=== PATIENT | female | born 1960 | race Caucasian/White ===

== ENCOUNTER → 2016-09-08 | Outpatient (CLI) | payer BC ==
--- NOTE | 2016-09-08 20:27 | MR ---
MRI of the brain with and without contrast HISTORY: Dizziness TECHNIQUE:.T1-weighted sagittal, T2, FLAIR, and diffusion axial, postcontrast T1 axial and coronal vi ews of the brain are submitted. CONTRAST: 15 mL of MultiHance FINDINGS: There is no evidence of acute ischemia. The ventricles, basal cisterns, and sulci overlying the co nvexities are consistent with the patient's age. There is extensive vasogenic edema within the left frontal parietal junction with a ring-enhancing le hunter measuring 2 cm. No midline shift. There is a 5 mm ring-enhancing lesion within the left occipita l lobe and within the anterior right temporal lobe. There are 3 enhancing lesions within the cerebellum the largest is seen involving the right cerebella r hemisphere demonstrating vasogenic edema with ring enhancement and measuring 2.4 cm. Craniocervical junction maintained. Sella turcica has a normal appearance. Changes of mild chronic si nusitis. Changes of mild chronic mastoiditis on the right. IMPRESSION: 1. Multiple ring-enhancing lesions compatible with metastasis. The largest supratentorial lesion with in the left frontal parietal conjunction with significant vasogenic edema measuring 2 cm but no midli ne shift. Within the cerebellum the largest lesion measures 2.4 cm on the right.
== END | disposition home or self-care (01) ==
LOC: RADMRIMAIN 18:57
PROVIDERS: ATTEND Internal Medicine Hematology & Oncology
DX: C34.90 Malignant neoplasm of unspecified part of unspecified bronchus or lung (principal); G93.9 Disorder of brain, unspecified; R60.9 Edema, unspecified
CPT/HCPCS: 70553; A9577

== ENCOUNTER → 2016-10-11 | Outpatient (CLI) | payer BC ==
--- NOTE | 2016-10-11 14:46 | US ---
EXAMINATION TYPE: US venous doppler duplex LE RT DATE OF EXAM: 10/11/2016 1:58 PM COMPARISON: NONE CLINICAL HISTORY: R22.41 SWELLING. Patient has had prior DVT in arm, was on Xeralto, but was recently taken off. SIDE PERFORMED: Right VESSELS IMAGED: External Iliac Vein (EIV) Common Femoral Vein Deep Femoral Vein Greater Saphenous Vein * Femoral Vein (* superficial vessels) TECHNOLOGIST IMPRESSION: Right Leg: Positive for DVT, proximal pop vein and into the LSV. There is satisfactory color flow, phasicity, compressibility in the above vessels of the right lower extremity. There is hyperechoic material expanding lumen beginning in the proximal popliteal vein ext ending into the superficial small saphenous vein with absent color flow, some reconstitution in the m id to distal popliteal vein is present. Office was called, results given to Nelida at Dr Ortiz's office. Patient was sent back to the offic e per Nelida. IMPRESSION: Acute DVT in the proximal right popliteal vein is noted. Ordering physician made aware by charge histotechnologist shortly after exam was completed.
== END | disposition home or self-care (01) ==
LOC: RADUSWWP 12:15
PROVIDERS: ATTEND Internal Medicine Hematology & Oncology
DX: I82.431 Acute embolism and thrombosis of right popliteal vein (principal)

== ENCOUNTER → 2016-11-15 | Outpatient (CLI) | payer BC ==
--- NOTE | 2016-11-15 15:32 | CT ---
EXAMINATION TYPE: CT ChestAbdPelvis w con DATE OF EXAM: 11/15/2016 3:01 PM COMPARISON: CT CAP August 09, 2016. Older chest CT exams through January 02, 2016. HISTORY: lung ca CT DLP: 993.0 mGycm. Automated Exposure Control for Dose Reduction was Utilized. CONTRAST: CT scan of the thorax, abdomen and pelvis is performed with IV Contrast, patient injected with 100 mL of Omnipaque 300. FINDINGS: LUNGS: There is redemonstration of left apical scarring which is progressed in size on current study. In addition there appears to be a new loculated pneumothorax posterior medially in the left upper maria a ng measuring roughly 6 x 6 cm on axial image 19. Some chronic consolidation or scarring abutting the fissure in the left upper lobe remains present and is stable inferior anterior and lateral to this. N o new suspicious recurrent mass or nodule is identified. No pleural effusion is seen. Tracheobronchia l tree is patent MEDIASTINUM: There are no new greater than 1 cm hilar or mediastinal lymph nodes. Prominent but subc entimeter pericarinal lymph node on axial image 22 is stable. No cardiomegaly or pericardial effusion is seen. Loss of mediastinal fat adjacent to aortic arch at area of prior neoplasm is stable. OTHER: There is stable right internal jugular Mediport catheter. LIVER/GB: There are now scattered subcentimeter low dense lesions throughout the liver, significantly improved from metastatic disease January 02, 2016. No significant change from most recent CT is seen. PANCREAS: No significant abnormality is seen. SPLEEN: No significant abnormality is seen. ADRENALS: No significant abnormality is seen. KIDNEYS: Symmetric cortical medullary uptake and excretion from both kidneys is identified on current study without hydronephrosis currently. BOWEL: No significant abnormality is seen. GENITAL ORGANS: Uterus is anteverted in shape and somewhat small in size with local mass effect in th e pelvis identified from abnormal pelvic structures. There is redemonstration of complex solid and cy stic pelvic mass. Large heterogeneous solid component with some central calcification and hypodensity or necrosis is felt stable measuring 6.0 x 4.4 cm on axial image 105. Thin septated cystic lesion or component anterior to this and posterior to the uterus is measuring 11 x 8 cm roughly on axial image 106 felt stable. Craniocaudal dimension is roughly 9.5 cm felt stable. There may be fat component al clay the posterior left superior margin similar to prior study. Mass effect on the adjacent colon, [place], and bladder is redemonstrated. No significant change in size and appearance from prior study is noted. LYMPH NODES: No greater than 1cm abdominal or pelvic lymph nodes are appreciated. OSSEOUS STRUCTURES: There is multilevel spurring in the spine redemonstrated. OTHER: No significant additional abnormality is seen. IMPRESSION: 1. New small loculated left posterior medial upper pneumothorax noted. 2. Increasing bleb and bulla formation left lung apex. No new mass or adenopathy is seen to suggest n eoplastic recurrence however. Hepatic metastatic disease is stable. 3. Stable suspicious solid and cystic pelvic mass worrisome for primary ovarian carcinoma with local mass effect on adjacent pelvic structures redemonstrated though no delayed excretion of right kidney as seen on current study. Results of new loculated left-sided pneumothorax communicated to ordering physician's medical assista nt via telephone at time of dictation.
== END | disposition home or self-care (01) ==
LOC: RADPROMAIN 13:53
PROVIDERS: ATTEND Internal Medicine Hematology & Oncology
DX: C34.92 Malignant neoplasm of unspecified part of left bronchus or lung (principal); C78.7 Secondary malignant neoplasm of liver and intrahepatic bile duct; R19.09 Other intra-abdominal and pelvic swelling, mass and lump; J93.9 Pneumothorax, unspecified
CPT/HCPCS: 36415; 71260; 74177; Q9967

== ENCOUNTER → 2016-11-20 | Outpatient (CLI) | payer BC ==
--- NOTE | 2016-11-20 13:11 | MR ---
EXAMINATION TYPE: MR brain wo/w con DATE OF EXAM: 11/20/2016 12:45 PM COMPARISON: Prior MRI brain September 08, 2016. Prior CT brain September 12, 2016. HISTORY: Secondary malignant neoplasm of brain, alvarez, nausea TECHNIQUE: Multiplanar, multisequence images of the brain and brainstem is performed without and with IV contras t, utilizing 16 mL intravenous MultiHance . FINDINGS: Diffusion weighted images demonstrate no evidence of a recent infarct or other diffusion ab normality. There is no worrisome extra-axial fluid collection. The ventricular system and cisternal spaces are normal in size and appearance. The brain volume is age appropriate. There is occasional focus of T2 hyperintensity in the deep white matter bilaterally. Finding likely on basis of product o f chronic small vessel ischemic change in patient of this age. There is rim-enhancing left frontal lobe lesion measuring 4 x 2 mm on current study axial image 61 an d measured 18 x 11 mm on prior study axial image 24. Some mild surrounding edema is present. Marked i mprovement from prior study is noted. The 5 mm left occipital ring-enhancing lesion is not clearly identified on current study near level o f left lateral ventricle. The 5 mm enhancing focus in the inferior posterior right frontal lobe on pr ior study axial image 12 is also not clearly seen on today's study. Largest right cerebellar lesion measures 13 x 8 mm on current study image 18 and measured 25 x 20 mm on prior study axial image 5. Left cerebellar lesion measured 9 x 8 mm on prior study image 6 and now measures 2 x 1 mm on current study image 20. Right lateral cerebellar lesion on prior study image 8 is now not clearly identified. No new enhancing lesions are clearly evident. Midline structures demonstrate normal morphology. The craniocervical junction appears within normal limits. Post contrast images demonstrate no abnormal enhancement. The dural venous sinuses appear pa tent. There is persistent mild mucosal thickening involving left ethmoid sinuses. Remainder paranasal sinuses are clear. The globes are intact bilaterally Worsening fluid signal in right mastoid air inessa ls is present. There is now patchy fluid signal in left mastoid air cells. Findings could reflect pro duct of treatment change though mastoiditis needs to BE excluded clinically. IMPRESSION: 1. Positive treatment response with decrease in size of all lesions and no new suspicious enhancing l esions noted. 2. Worsening fluid bilateral mastoid air cells, right greater than left, clinical correlation advised to rule out mastoiditis. RECIST CRITERIA: Improving disease, partial response.
== END | disposition home or self-care (01) ==
LOC: RADMRIMAIN 11:41
PROVIDERS: ATTEND Radiology Radiation Oncology
DX: C79.31 Secondary malignant neoplasm of brain (principal); R11.0 Nausea; R51 Headache
CPT/HCPCS: 70553; A9577

== ENCOUNTER → 2017-02-14 | Outpatient (CLI) | payer BC ==
--- NOTE | 2017-02-14 12:38 | MR ---
EXAMINATION TYPE: MR brain wo/w con DATE OF EXAM: 02/14/2017 COMPARISON: MRI brain November 20, 2016. HISTORY: Secondary malignant neoplasm of brain progress study. TECHNIQUE: Multiplanar, multisequence images of the brain and brainstem is performed without and with IV contras t, utilizing 15 mL intravenous MultiHance . FINDINGS: Diffusion weighted images demonstrate no evidence of a recent infarct or other diffusion ab normality. There is no extra-axial fluid collection or significant white matter signal abnormality. The ventricular system and cisternal spaces are normal in size and appearance. The brain volume is age appropriate. Midline structures demonstrate normal morphology. The craniocervical junction appears within normal limits. Post contrast imaging redemonstrates rim enhancing lesions bilaterally. There is 9 x 6 mm high left f rontal lesion increased in size from prior exam where it measured 4 x 2 mm on axial image 59. Increas ed surrounding edema is noted. The right cerebellar lesion is diminished in size on current study measuring 9 x 3 mm on axial image 11 versus 13 mm on long axis prior study axial image 18. Left cerebellar heterogeneous rim-enhancing lesion measures 13 mm on long axis current study axial im age 13 versus 2 mm prior study. New surrounding edema is present. There are new enhancing lesions identified including 6 mm lateral right cerebellar lesion on axial im age 19. Also left occipital 4 mm lesion on axial image 30. The dural venous sinuses remain patent. The globes are intact. There is new prominent fluid in right maxillary sinus. Increased fluid signal bilateral mastoid air cells, right greater than left is redem onstrated. IMPRESSION: 1. Overall progressive metastatic disease with new and enlarging lesions identified and worsening rui rounding edema noted. Only lesion improved is right cerebellar lesion. 2. Possible new severe right-sided acute maxillary sinusitis, clinical correlation advised. RECIST CRITERIA DISEASE PROGRESSION
== END | disposition home or self-care (01) ==
LOC: RADMRIMAIN 11:10
PROVIDERS: ATTEND Radiology Radiation Oncology
DX: C79.31 Secondary malignant neoplasm of brain (principal); G93.89 Other specified disorders of brain
CPT/HCPCS: 70553; A9577

== ENCOUNTER → 2017-02-14 | Outpatient (CLI) | payer BC ==
--- NOTE | 2017-02-14 15:29 | CT ---
EXAMINATION TYPE: CT chest w con DATE OF EXAM: 02/14/2017 COMPARISON: 11/15/2016 HISTORY: Follow up lung cancer per patient. No complaints at time of scan CT DLP: 322.3 mGycm, Automated exposure control for dose reduction was used. CONTRAST: Performed injected with 100 mL of Omnipaque 300. TECHNIQUE: Axial images were obtained at 5 mm thick sections. Reconstructed images are reviewed on [employer] computer in the coronal plane. FINDINGS: Portion of the thyroid visualized is normal. There is a loculated bleb or bulla in the posterior medial left apex. A cavitary lesions in the anter ior left apex measuring approximately 4.1 cm in diameter. This is thicker walled and somewhat smaller than the comparison. The thickening along the major fissure within the lingula is increased over the interval. There is slight increased size of the 0.7 cm nodule within the medial cardiophrenic angle. Series 4 image 23. No enlarged mediastinal or hilar adenopathy is evident. The ascending aorta diameter at the level o f the main pulmonary artery is 3.1 cm. The main pulmonary artery diameter at the bifurcation is 2.[address] sections are obtained through the upper abdomen. There are scattered subcentimeter hypoden sities within the liver too small to characterize. Metastatic disease is not excluded. IMPRESSIONS: 1. Thickened wall left apical cavitary lesion. Large emphysematous bulla are present in the left apex . 2. Thickening within the lingula along the major fissure is greater than prior. 3. Enlarged irregular nodule within the cardiophrenic angle within the lingula 4. Improved hypodense metastatic lesions within the liver.
== END | disposition home or self-care (01) ==
LOC: RADPROMAIN 14:26
PROVIDERS: ATTEND Internal Medicine Hematology & Oncology
DX: J43.9 Emphysema, unspecified (principal); R91.8 Other nonspecific abnormal finding of lung field; C34.92 Malignant neoplasm of unspecified part of left bronchus or lung
CPT/HCPCS: 71260; Q9967; J1642

== ENCOUNTER 2017-03-10 17:37 | Emergency (ER) | payer BC ==
--- NOTE | 2017-03-10 17:52 | ED ---
Fall HPI - General Chief Complaint: Fall Stated Complaint: fall Time Seen by Provider: 03/10/17 17:37 Source: patient, EMS, RN notes reviewed Mode of arrival: EMS - History of Present Illness Initial Comments: This is a 56-year-old female history of lung cancer with metastatic disease to the brain who apparently was sleeping and out of bed in her sleep striking her face against a dresser. She did awaken after this occurred. She was brought in by EMS for evaluation she complains pain to her left side of her face and left lower lip she did have one episode of nausea vomiting in the ambulance and route to. She denies any neck pain back or extremity pain. She is on anticoagulants for a left upper extremity MD Complaint: fall - Related Data Home Medications Medication Instructions Recorded Confirmed Albuterol Inhaler [Ventolin Hfa 1 - 2 puff INHALATION RT-Q6H PRN 01/02/16 Inhaler] Albuterol Nebulized [Ventolin 2.5 mg INHALATION RT-Q4H PRN 01/02/16 03/10/17 Nebulized] Famotidine [Pepcid] 20 mg PO BID 01/18/16 03/10/17 HYDROcodone/APAP 10-325MG [Freedom 1 tab PO Q4HR PRN 01/18/16 03/10/17 10-325] predniSONE 10 mg PO DAILY 01/18/16 03/10/17 Atorvastatin [Lipitor] 20 mg PO HS 02/26/16 03/10/17 Dronabinol [Marinol] 5 mg PO AC-BID 02/26/16 03/10/17 Rivaroxaban [Xarelto] 20 mg PO DAILY 02/26/16 03/10/17 Ondansetron Odt [Zofran Odt] 4 mg PO Q8HR PRN 03/10/17 03/10/17 Previous Rx's Medication Instructions Recorded Metoclopramide [Reglan] 10 mg PO AC-TID #30 tab 01/25/16 Allergies Allergy/AdvReac Type Severity Reaction Status Date / Time codeine Allergy Rash/Hives Verified 03/10/17 18:31 Sulfa (Sulfonamide Allergy Rash/Hives Verified 03/10/17 18:31 Antibiotics) tetracycline Allergy Rash/Hives Verified 03/10/17 18:31 Review of Systems ROS Statement: Those systems with pertinent positive or pertinent negative responses have been documented in the HPI. ROS Other: All systems not noted in ROS Statement are negative. Past Medical History Past Medical History: Asthma, Cancer, Chest Pain / Angina, COPD, Deep Vein Thrombosis (DVT), Hearing Disorder / Deafness, Hyperlipidemia Additional Past Medical History / Comment(s): astigmatism, tube in left ear per pt's spouse pt has small cell ca- lung,lymph node,liver. pt stated had chemo last tu,wed, th not due for next tx for 2 weeks .home 02 1.5 ltiers n/c. appetite down tries to eat 2 meals a day and drinks 3 ensure a day History of Any Multi-Drug Resistant Organisms: None Reported Past Surgical History: Ear Surgery, Hysterectomy Additional Past Surgical History / Comment(s): partial hysterectomy, bronchoscopy, medi port rt chest, LASIK SURGERY BILATERAL EYES Past Anesthesia/Blood Transfusion Reactions: No Reported Reaction Past Psychological History: No Psychological Hx Reported Smoking Status: Former smoker Past Alcohol Use History: None Reported Past Drug Use History: None Reported - Past Family History Mother Family Medical History: Cancer Additional Family Medical History / Comment(s): lung and bronchial cancer, Sister(s) History Unknown: Yes Family Medical History: Deep Vein Thrombosis (DVT) Additional Family Medical History / Comment(s): factor 5 disorder General Exam - General Exam Comments Initial Comments: This is a well-developed well-nourished awake alert oriented 3 female she does demonstrate a Freddy Coma Scale of 15 Limitations: no limitations General appearance: alert, in no apparent distress Head exam: Present: normocephalic (There is ecchymosis seen. The left lateral orbit and left cheek area. There is a small laceration to the left lower lip no active bleeding seen. Dentition is intact.) Eye exam: Present: PERRL, EOMI Pupils: Present: normal accommodation ENT exam: Present: other (As above) Neck exam: Present: normal inspection. Absent: tenderness, meningismus, lymphadenopathy Respiratory exam: Present: normal lung sounds bilaterally. Absent: respiratory distress, wheezes, rales, rhonchi, stridor Cardiovascular Exam: Present: regular rate, normal rhythm, normal heart sounds. Absent: systolic murmur, diastolic murmur, rubs, gallop, clicks GI/Abdominal exam: Present: soft, normal bowel sounds. Absent: distended, tenderness, guarding, rebound, rigid Extremities exam: Present: normal inspection, full ROM, normal capillary refill. Absent: tenderness, pedal edema, joint swelling, calf tenderness Back exam: Present: normal inspection Neurological exam: Present: alert, oriented X3, CN II-XII intact Psychiatric exam: Present: normal affect, normal mood Skin exam: Present: warm, dry, intact, normal color. Absent: rash Course Vital Signs 03/10/17 03/10/17 03/10/17 17:42 18:47 21:21 Temperature 97.3 F L 98.2 F Pulse Rate 96 91 78 Respiratory 18 20 18 Rate Blood Pressure 131/60 122/76 129/78 O2 Sat by Pulse 94 L 95 100 Oximetry - Reevaluation(s) Reevaluation #1: 03/10/17 21:09 Further information is morning the patient was apparently confused and incontinent of urine was aware of. Per family member she has been acting differently since she had been yesterday before. Reevaluation #2: 03/10/17 21:30 Reevaluation also included the superficial lip laceration which will not require any suture repair at this time. Medical Decision Making - Medical Decision Making I did a long discussion with patient family regarding findings. CT brain shows some possibility of increased mass effect but no evidence of any bleeding. No evidence of any fracture facial bones. Patient does have a contusion to the left side of the face with evidence of Hematoma. Patient's symptoms and presentation especially in light of the confusional state this morning patient will be transferred to [facility] for evaluation by neurosurgery and the case was discussed with the receiving facility I did discuss the case with Dr. Sarmiento - Lab Data Result diagrams: 03/10/17 19:58 03/10/17 19:58 Lab Results 03/10/17 03/10/17 03/10/17 Range/Units 19:58 19:58 19:58 WBC 8.3 (3.8-10.6) k/uL RBC 4.48 (3.80-5.40) m/uL Hgb 14.5 (11.4-16.0) gm/dL Hct 41.1 (34.0-46.0) % MCV 91.8 (80.0-100.0) fL MCH 32.3 (25.0-35.0) pg MCHC 35.2 (31.0-37.0) g/dL RDW 13.6 (11.5-15.5) % Plt Count 249 (150-450) k/uL Neutrophils % 77 % Lymphocytes % 15 % Monocytes % 4 % Eosinophils % 3 % Basophils % 0 % Neutrophils # 6.4 (1.3-7.7) k/uL Lymphocytes # 1.3 (1.0-4.8) k/uL Monocytes # 0.3 (0-1.0) k/uL Eosinophils # 0.2 (0-0.7) k/uL Basophils # 0.0 (0-0.2) k/uL Sodium 142 (137-145) mmol/L Potassium 3.8 (3.5-5.1) mmol/L Chloride 106 (98-107) mmol/L Carbon Dioxide 25 (22-30) mmol/L Anion Gap 11 mmol/L BUN 8 (7-17) mg/dL Creatinine 0.50 L (0.52-1.04) mg/dL Est GFR (MDRD) Af Amer >60 (>60 ml/min/1.73 sqM) Est GFR (MDRD) Non-Af >60 (>60 ml/min/1.73 sqM) Glucose 107 H (74-99) mg/dL Calcium 9.7 (8.4-10.2) mg/dL Magnesium 2.1 (1.6-2.3) mg/dL Total Bilirubin 0.9 (0.2-1.3) mg/dL AST 21 (14-36) U/L ALT 36 (9-52) U/L Alkaline Phosphatase 99 (38-126) U/L Total Creatine Kinase 150 H (30-135) U/L CK-MB (CK-2) 1.7 (0.0-2.4) ng/mL CK-MB (CK-2) Rel Index 1.1 Troponin I 0.027 (0.000-0.034) ng/mL Total Protein 6.9 (6.3-8.2) g/dL Albumin 4.2 (3.5-5.0) g/dL - EKG Data -: EKG Interpreted by Tx EKG shows normal: sinus rhythm (Sinus rhythm rate of 93 para 144 QRS 76 QT/QTC of 388/42 nonspecific inferior configuration) - Radiology Data Radiology results: report reviewed (I did review the imaging studies and reports. There is known metastatic disease to the brain with some evidence of slightly greater mass effect onto the left side of the fourth ventricle is compared to the prior MRI.), image reviewed Disposition Clinical Impression: Fall, Confusion, Brain mass, Metastatic cancer to lung, Contusion of face Disposition: OTHER INSTITUTION NOT DEFINED Condition: Stable Referrals: Mynor Kingston DO [Primary Care Provider] - 1-2 days - Out of Hospital Transfer - Req. Specs Out of Hospital Transfer - Requested Specifics: Other Emergency Center
[2017-03-10] MEDS ORDERED: ONDANSETRON ODT 4 MG TAB PO STA ×2 (18:15→22:19)
--- NOTE | 2017-03-10 18:34 | CT ---
EXAMINATION TYPE: CT brain cspine wo con DATE OF EXAM: 03/10/2017 COMPARISON: MRI brain 02/14/2017 HISTORY: 56-year-old female Patient fell out of bed today. Left sided injury. CT DLP: 1494.30 mGycm Automated exposure control for dose reduction was used. Technique: Examination of the head was done in axial plane without intravenous contrast. Coronal and sagittal reconstructions performed. CT of the cervical spine was obtained in axial plane without intravenous injection of contrast mater ial. Coronal and sagittal reformatted images were obtained from the axial views for evaluation of f ractures, spinal alignment and canal. FINDINGS: Head: Large left lateral periorbital and temporal soft tissue hematoma and contusion. No underlying calvari al fracture. Vasogenic edema redemonstrated extensively within the left frontal lobe and a smaller stents within t he periventricular region near the left occipital horn, and anterior inferior right subinsular region , and left greater than right cerebellar hemispheres. There appears to be slightly greater degree of mass effect onto the left side of the fourth ventricle from the cerebellar lesions. No evidence for acute intracranial hemorrhage, acute ischemic change, midline shift, or extra-axial f luid collection. No hydrocephalus. Air-fluid level within the right maxillary sinus. Mastoid air cells well pneumatized. Facial bones will be reported separately. Cervical spine: No craniocervical junction abnormality, predental space widening, or prevertebral soft tissue swellin g. Straightening of the normal cervical lordosis. Alignment is maintained. No acute fracture of the cervical spine. Moderate disc/endplate degenerative change mid to lower cervical spine with multilevel mild facet and uncovertebral joint degenerative change. Changes cause mild to moderate spinal canal narrowing at C5 -C6 and C6-C7. Partially visualized bullous changes and/or chronic apical pneumothorax, similar to 11/15/2016. Sagittal and coronal reformatted images confirm above findings. COMBINED IMPRESSION: 1. Known brain metastases. These are seen as areas of vasogenic edema corresponding to lesions seen o n MRI of 02/14/2017. No midline shift or acute intracranial hemorrhage. There may be slightly greater mass effect onto the left side of the fourth ventricle as compared to prior MRI from the cerebellar l esions. 2. Large left lateral periorbital and temporal hematoma and contusion. No calvarial fracture. Facial bones reported separately. 3. No acute fracture or malalignment of the cervical spine. Mild to moderate spondylotic change mid t o lower cervical spine. 4. Acute right maxillary sinusitis. Facial bones reported separately. 5. Bullous changes and possible chronic left apical pneumothorax show stable configuration as compare d to 11/15/2016.
--- NOTE | 2017-03-10 18:36 | CT ---
EXAMINATION TYPE: CT facial bones wo con DATE OF EXAM: 03/10/2017 COMPARISON: NONE HISTORY: 56-year-old female fell out of bed today. Left sided injury. TECHNIQUE: Contiguous axial scanning of the facial bones without IV contrast. Coronal reconstructions performed. CT DLP: 480.80 mGycm Automated exposure control for dose reduction was used. FINDINGS: Large left lateral periorbital and temporal hematoma and soft tissue contusion. Additional bruising a long the left side of the face. Air-fluid level right maxillary sinus. Orbits and globes appear intact. No facial bone fracture seen. IMPRESSION: 1. LARGE LEFT LATERAL PERIORBITAL AND TEMPORAL SOFT TISSUE HEMATOMA/CONTUSION. NO UNDERLYING FACIAL B ONE OR ORBITAL FRACTURE. 2. ACUTE RIGHT MAXILLARY SINUSITIS. 3. BRAIN AND CERVICAL SPINE REPORTED SEPARATELY.
[2017-03-10 20:08] LABS: Basophils % (A) 0 %; CH 30.8; CHCM 33.7; Eosinophils # (A) 0.2 k/uL (0-0.7); Eosinophils % (A) 3 %; HCT 41.1 % (34.0-46.0); HDW 2.66; HGB 14.5 gm/dL (11.4-16.0); Luc # (Auto) 0.08; Luc % (Auto) 1; Lymphocytes # (A) 1.3 k/uL (1.0-4.8); Lymphocytes % (A) 15 %; MCH 32.3 pg (25.0-35.0); MCHC 35.2 g/dL (31.0-37.0); MCV 91.8 fL (80.0-100.0); Mean Platelet Volume 6.9; Monocytes # (A) 0.3 k/uL (0-1.0); Monocytes % (A) 4 %; Neutrophils # (A) 6.4 k/uL (1.3-7.7); Neutrophils % (A) 77 %; RBC 4.48 m/uL (3.80-5.40); RDW 13.6 % (11.5-15.5); WBC 8.3 k/uL (3.8-10.6); WBC (Perox) 8.14
[2017-03-10 20:19] LABS: ALT 36 U/L (9-52); AST 21 U/L (14-36); Alkaline Phosphatase 99 U/L (38-126); Anion Gap 11 mmol/L; Blood Urea Nitrogen 8 mg/dL (7-17); Calcium 9.7 mg/dL (8.4-10.2); Carbon Dioxide 25 mmol/L (22-30); Chloride 106 mmol/L (98-107); Glucose 107 mg/dL (74-99); Magnesium 2.1 mg/dL (1.6-2.3); Non-African American GFR(MDRD) >60 (>60 ml/min/1.73 sqM); Potassium 3.8 mmol/L (3.5-5.1); Sodium 142 mmol/L (137-145); Total Bilirubin 0.9 mg/dL (0.2-1.3); Total Protein 6.9 g/dL (6.3-8.2)
[2017-03-10 20:42] LABS: Creatine Kinase MB 1.7 ng/mL (0.0-2.4); Troponin I 0.027 ng/mL (0.000-0.034)
[2017-03-10 22:23] VITALS: BP 118/70; PULSE 69; RESP 16; TEMP 98
== END 2017-03-10 22:22 | disposition other institution (70) ==
LOC: EC 17:37
DX: S01.511A Laceration without foreign body of lip, initial encounter (principal); S05.12XA Contusion of eyeball and orbital tissues, left eye, initial encounter; S00.83XA Contusion of other part of head, initial encounter; R41.0 Disorientation, unspecified; C71.9 Malignant neoplasm of brain, unspecified; C78.00 Secondary malignant neoplasm of unspecified lung; R11.2 Nausea with vomiting, unspecified; J01.00 Acute maxillary sinusitis, unspecified; E78.5 Hyperlipidemia, unspecified; Z86.718 Personal history of other venous thrombosis and embolism; Z99.81 Dependence on supplemental oxygen; Z88.1 Allergy status to other antibiotic agents; Z88.2 Allergy status to sulfonamides; Z88.5 Allergy status to narcotic agent; Z79.01 Long term (current) use of anticoagulants; Z79.899 Other long term (current) drug therapy; Z87.891 Personal history of nicotine dependence; W06.XXXA Fall from bed, initial encounter; Y93.84 Activity, sleeping; Y92.009 Unspecified place in unspecified non-institutional (private) residence as the place of occurrence of the external cause
CPT/HCPCS: 36415; 70450; 70486; 72125; 80053; 82550; 82553; 83735; 84484; 85025; 93005; 99285

== ENCOUNTER → 2017-04-10 | Outpatient (CLI) | payer BC ==
--- NOTE | 2017-04-10 14:19 | MR ---
EXAMINATION TYPE: MR brain wo/w con DATE OF EXAM: 04/10/2017 COMPARISON: NONE HISTORY: secondary malignant neoplasm of brain, f/u, 2mm cut protocol for Dr. Ambriz TECHNIQUE: Multiplanar, multisequence images of the brain and brainstem is performed without and with IV contras t, utilizing 15 mL intravenous MultiHance . FINDINGS: Diffusion weighted images demonstrate correlating foci restricted diffusion in the area pat ient's metastatic deposits. The multiple foci of ring enhancement seen on previous exam shows some in terval decrease in size with the exception of the periventricular lesion in the left occipital lobe w hich is essentially stable. Left cerebellar lesion is somewhat less well-defined as is the left front al lobe lesion. Left cerebellar lesion measures approximately 1 to 2 mm less than on prior exam. Ther e is white matter signal change similar to prior exam on inversion recovery and T2-weighted sequences although certainly less conspicuous at the level of the left cerebellum. There is no hemorrhage or h ydrocephalus. Cerebellopontine angles, corpus callosum, pituitary, cervical medullary junction are stable. Inflamma tory change present in the mastoid air cells on the right is improved. Inflammatory change in the rig ht maxillary sinus is improved. There are normal vascular flow voids, normal vascular enhancement. IMPRESSION: Findings suggest improvement in the interval.
== END | disposition home or self-care (01) ==
LOC: RADMRIMAIN 10:17
PROVIDERS: ATTEND Radiology Radiation Oncology
DX: C79.31 Secondary malignant neoplasm of brain (principal)
CPT/HCPCS: 70553; A9577

== ENCOUNTER → 2017-05-09 | Outpatient (CLI) | payer BC ==
[2017-05-09 13:27] LABS: Blood Urea Nitrogen 23 mg/dL (7-17); Non-African American GFR(MDRD) >60 (>60 ml/min/1.73 sqM)
--- NOTE | 2017-05-09 14:19 | CT ---
EXAMINATION TYPE: CT chest w con DATE OF EXAM: 05/09/2017 COMPARISON: Prior CT chest 02/14/2017 HISTORY: Hemoptysis CT DLP: 295.5 mGycm Automated exposure control for dose reduction was used. CONTRAST: CT scan of the chest is performed with IV Contrast, patient injected with 100 mL of Omnipaque 300. FINDINGS: LUNGS: The previously identified cavitary lesion in the left upper lobe now shows mixed density with air and air-fluid levels present, the area has enlarged and now measures approximately 6.5 cm x 9.3 c m x 8.5 cm in size extends to the hilar region with encasement of the left pulmonary artery as well a s branches. Additionally the previously identified area of possible trapped lung at the apex now show s a large amount of fluid density present within the cavity with an air-fluid level extending towards the mediastinum at the thoracic inlet level and along the left lateral margin of the aorta. Right maria a ng is essentially clear. There is mediastinal adenopathy present in the retrocaval pretracheal, subca rinal locations OTHER: Liver mass is present which is grown in the interval and measures approximately 5.2 cm within the left lobe medial segment. An additional hypodensities present in the right lobe. IMPRESSION: Findings compatible with patient's known history of metastatic disease.
== END | disposition home or self-care (01) ==
LOC: RADPROMAIN 12:18
PROVIDERS: ATTEND Internal Medicine Hematology & Oncology
DX: C34.92 Malignant neoplasm of unspecified part of left bronchus or lung (principal); Z88.1 Allergy status to other antibiotic agents; Z88.5 Allergy status to narcotic agent; Z88.2 Allergy status to sulfonamides
CPT/HCPCS: 82565; 84520; 71260; Q9967; J1642

== ENCOUNTER → 2017-05-18 | Outpatient (CLI) | payer BC ==
--- NOTE | 2017-05-18 11:31 | MR ---
EXAMINATION TYPE: MR brain wo/w con DATE OF EXAM: 05/18/2017 COMPARISON: MRI brain April 10, 2017 HISTORY: Secondary malignant neoplasm of brain progress order progress study. Metastatic lung cancer to brain with dizziness or hearing loss per patient. TECHNIQUE: Multiplanar, multisequence images of the brain and brainstem is performed without and with IV contras t, utilizing 7 mL intravenous Gadavist . FINDINGS: Multiple heterogeneous ring-enhancing metastatic lesions are redemonstrated. Left cerebellar lesion measures 12 mm on long axis on axial image 16 unchanged from prior study. More vague right cerebellar lesion on axial image 15 is felt stable approaching 1 cm on long axis. More vague lateral superior right cerebellar however is increased in size measuring 1.8 cm on long ax is on axial image 24 versus 1.2 cm on prior study. Lesion also appears enlarged on sagittal image 58 and coronal image 44 versus prior. The left occipital periventricular lesion is increased in size measuring 8 mm on long axis current st udy image 35 versus 5 mm on prior study image 33. Inferior right frontal lobe lesion is increased in size measuring 9 mm on long axis axial image 35 ve rsus 4 mm on prior study axial image 38. Superior left frontal subcortical lesion measures 10 mm on long axis axial image 61 unchanged in size from prior study. Stable surrounding edema is noted. No definitive new lesions are seen but artifact limits evaluation for under 5 mm lesions. T2 shine through noted on diffusion-weighted images. There are focal and confluent areas of T2 hyperi ntensity in the deep and periventricular white matter redemonstrated felt stable. Midline structures demonstrate normal morphology. Ventricular and sulcal size are stable and felt wit hin normal limits. The globes remain slightly elongated bilaterally. The paranasal sinuses show persi stent mucous retention cyst or polyp in the right maxillary sinus posterior aspect otherwise are ole r. Some patchy fluid signal inferior right mastoid air cells is redemonstrated. IMPRESSION: Overall progressive disease with several enlarging lesions noted as detailed above.
== END | disposition home or self-care (01) ==
LOC: RADMRIMAIN 07:17
PROVIDERS: ATTEND Radiology Radiation Oncology
DX: C79.31 Secondary malignant neoplasm of brain (principal); G93.9 Disorder of brain, unspecified
CPT/HCPCS: 70553; A9581

== ENCOUNTER 2017-05-28 23:05 | Inpatient (IN) | payer BC ==
[2017-05-28] MEDS ORDERED: PANTOPRAZOLE 40 MG/10 ML VIAL IVP STA (23:47)
[2017-05-28] MEDS ORDERED: HYDROmorphone 0.5 MG/0.5 ML SYRINGE IVP STA (23:47)
[2017-05-28] MEDS ORDERED: ONDANSETRON 4 MG/2 ML VIAL IVP STA (23:47)
[2017-05-28] MEDS ORDERED: SODIUM CHLORIDE 0.9% 1,000 ML IV STA (23:47)
[2017-05-28] MEDS ORDERED: SODIUM CHLORIDE 0.9% 500 ML IV STA (23:47)
[2017-05-28] MEDS ORDERED: RX INFO: IV CONTRAST WAS GIVEN 1 EACH MISC MISCELLANE PRN (23:48)
[2017-05-28] MEDS ORDERED: ACETAMINOPHEN TAB 500 MG TAB PO STA (23:48)
[2017-05-28] MEDS ORDERED: LEVOFLOXACIN 750MG-D5W PMX 750 MG in DEXTROSE/WATER 1 150ML.BAG IVPB STA (23:49)
[2017-05-28] MEDS ORDERED: KETOROLAC 30 MG/ML 1 ML VIAL IVP STA (23:49)
[2017-05-28] MEDS ORDERED: IPRATROPIUM-ALBUTEROL 3 ML NEB INHALATION STA (23:57)
--- NOTE | 2017-05-28 23:57 | ED ---
General Adult HPI - General Source: patient Mode of arrival: wheelchair Limitations: no limitations <Saman Cooper - Last Filed: 05/29/17 01:20> <Zita Villeda - Last Filed: 05/29/17 03:26> - General Chief complaint: GI Bleed Stated complaint: GI Bleed. Cancer Pt Time Seen by Provider: 05/28/17 23:40 - History of Present Illness Initial comments: This 57-year-old white female presents with daughter with the complaint of some rectal bleeding. They noted some bright red blood per rectum this evening shortly prior to arrival. The patient relates that it will happen on occasion. She also developed some bilateral lower abdominal pain approximately 2-3 hours prior to arrival which was fairly severe in nature. She is on xaralto for a history of DVTs. She also presents with a fever which started this evening. She has had occasional shortness of breath which seems chronic in nature but possibly slightly worse recently. She does complain of occasional back pain which is in her mid to lower back. She does have an extensive history of cancer. She has lung cancer which apparently is present to the brain as well as the lymph nodes and the liver. She has been dealing with the cancer for the past year and a half and has recently undergone chemotherapy. She is felt fairly weak and the daughter states that she has been confused recently as well. No other complaints or modifying factors. (Saman Cooper) - Related Data Home Medications Medication Instructions Recorded Confirmed Albuterol Nebulized [Ventolin 2.5 mg INHALATION RT-Q4H PRN 01/02/16 05/29/17 Nebulized] Famotidine [Pepcid] 20 mg PO BID@0800,1600 01/18/16 05/29/17 Atorvastatin [Lipitor] 20 mg PO HS@199902/26/16 05/29/17 Dronabinol [Marinol] 5 mg PO BID@0800,1600 02/26/16 05/29/17 Rivaroxaban [Xarelto] 20 mg PO HS 02/26/16 05/29/17 ALPRAZolam [Xanax] 0.25 mg PO BID PRN 05/28/17 05/29/17 ALPRAZolam [Xanax] 0.25 mg PO HS@199905/28/17 05/29/17 Albuterol Inhaler [Ventolin Hfa 2 puff INHALATION RT-Q4H PRN 05/28/17 05/29/17 Inhaler] Bisacodyl [Dulcolax] 5 mg PO QAM 05/28/17 05/29/17 Dexamethasone [Hexadrol] See Taper PO DAILY 05/28/17 05/29/17 Docusate [Colace] 100 mg PO HS 05/28/17 05/29/17 Magic Mouth Wash 5 ml PO QID PRN 05/28/17 05/29/17 Nystatin 100,000 Unit/ml Susp 500,000 unit PO QID PRN 05/28/17 05/29/17 [Mycostatin Oral Susp] Ondansetron [Zofran] 4 mg PO Q4H PRN 05/28/17 05/29/17 Sucralfate [Carafate] 1 gm PO QID 05/28/17 05/29/17 levETIRAcetam [Keppra] 1,000 mg PO BID 05/28/17 05/29/17 oxyCODONE HCL 20 mg PO BID@0800,199905/28/17 05/29/17 oxyCODONE-APAP 7.5-325MG [Percocet 1 tab PO Q4H PRN 05/28/17 05/29/17 7.5-325 mg] oxyCODONE-APAP 7.5-325MG [Percocet 1 tab PO QID 05/28/17 05/29/17 7.5-325 mg] Metoclopramide [Reglan] 10 mg PO TID@0800,1599,199905/29/17 05/29/17 Allergies Allergy/AdvReac Type Severity Reaction Status Date / Time codeine Allergy Rash/Hives Verified 05/28/17 23:39 Sulfa (Sulfonamide Allergy Rash/Hives Verified 05/28/17 23:39 Antibiotics) tetracycline Allergy Rash/Hives Verified 05/28/17 23:39 Review of Systems ROS Other: All systems not noted in ROS Statement are negative. <Saman Cooper - Last Filed: 05/29/17 01:20> ROS Other: All systems not noted in ROS Statement are negative. <Zita Villeda - Last Filed: 05/29/17 03:26> ROS Statement: Those systems with pertinent positive or pertinent negative responses have been documented in the HPI. Past Medical History Past Medical History: Asthma, Cancer, Chest Pain / Angina, COPD, Deep Vein Thrombosis (DVT), Hearing Disorder / Deafness, Hyperlipidemia Additional Past Medical History / Comment(s): astigmatism, tube in left ear per pt's spouse pt has small cell ca- lung,lymph node,liver. pt stated had chemo last ,wed, thurs not due for next tx for 2 weeks .home 02 1.5 ltiers n/c. appetite down tries to eat 2 meals a day and drinks 3 ensure a day History of Any Multi-Drug Resistant Organisms: None Reported Past Surgical History: Ear Surgery, Hysterectomy Additional Past Surgical History / Comment(s): partial hysterectomy, bronchoscopy, medi port rt chest, LASIK SURGERY BILATERAL EYES Past Anesthesia/Blood Transfusion Reactions: No Reported Reaction Past Psychological History: Anxiety Smoking Status: Former smoker Past Alcohol Use History: None Reported Past Drug Use History: None Reported - Past Family History Mother Family Medical History: Cancer Additional Family Medical History / Comment(s): lung and bronchial cancer, Sister(s) History Unknown: Yes Family Medical History: Deep Vein Thrombosis (DVT) Additional Family Medical History / Comment(s): factor 5 disorder <Saman Cooper - Last Filed: 05/29/17 01:20> General Exam Limitations: no limitations <Saman Cooper - Last Filed: 05/29/17 01:20> <Zita Villeda - Last Filed: 05/29/17 03:26> - General Exam Comments Initial Comments: GENERAL: The patient is well nourished and well hydrated. VITAL SIGNS: Heart rate, blood pressure, respiratory rate reviewed as recorded in nurse's notes. EYES: Pupils are round and reactive. Extraocular movements are intact. No conjunctival / lid redness or swelling. ENT: No external evidence of injury, swelling, or ecchymosis. Airway is patent. Throat is clear. There is facial swelling noted which is likely chronic. NECK: Nontender. No swelling or evidence of injury. No subcutaneous emphysema. Trachea is midline. No thyroid mass. HEART: Regular rate and rhythm. Good peripheral pulses. LUNGS/CHEST: Breath sounds clear and equal bilaterally. No rales, rhonchi, or wheezes. No ecchymosis, subcutaneous emphysema, or tenderness. ABDOMEN: There is mild tenderness noted to bilateral lower abdomen. No palpable masses or organomegaly. No peritoneal signs. No abdominal wall swelling or ecchymosis. EXTREMITIES: No extremity tenderness. Normal muscle tone and function. There is mild tenderness to the midline lumbar and lower thoracic spinous processes. NEUROLOGIC: Sensation is grossly intact. Cranial nerve exam reveals face is symmetrical, tongue is midline, speech is clear. SKIN: No abrasions or ecchymosis is noted. No induration or masses noted. PSYCHIATRIC: Alert and oriented. Appropriate behavior and judgment. (Saman Cooper) Course <Saman Cooper - Last Filed: 05/29/17 01:20> <Zita Villeda - Last Filed: 05/29/17 03:26> Vital Signs 05/28/17 05/29/17 05/29/17 23:09 00:14 00:21 Temperature 101.3 F H Pulse Rate 118 H 113 H 117 H Respiratory 24 20 Rate Blood Pressure 134/72 124/66 O2 Sat by Pulse 100 100 Oximetry 05/29/17 05/29/17 05/29/17 00:33 01:15 01:59 Temperature 98.4 F Pulse Rate 108 H 112 H 119 H Respiratory 18 20 Rate Blood Pressure 136/82 149/75 O2 Sat by Pulse 97 99 Oximetry 05/29/17 02:57 Temperature Pulse Rate 107 H Respiratory 18 Rate Blood Pressure 127/67 O2 Sat by Pulse 97 Oximetry She was reassessed at 3 AM, reviewed the labs that included CBC, INR, urinalysis and CT report and CT of the abdomen has multiple findings with diabetic lesions or pelvic mass and no focal opacity in the left lower lobe of the lungs and bilateral precordial lift, patient be admitted to hospitalist services for rectal bleed abdominal pain lung mass, pneumonia, pelvic mass. Dr. Doris chi [employer] doctor. Consult (Zita Villeda) Medical Decision Making - Lab Data Result diagrams: 05/28/17 23:53 05/28/17 23:53 <Saman Cooper - Last Filed: 05/29/17 01:20> - Lab Data Result diagrams: 05/28/17 23:53 05/28/17 23:53 <Zita Villeda - Last Filed: 05/29/17 03:26> - Medical Decision Making The patient was seen and examined. All diagnostics were reviewed. She is placed on the athletic monitor. She does receive some Protonix intravenously. She also received some Tylenol orally and Toradol intravenously for her fever. She receives a DuoNeb breathing treatment. Levaquin was given empirically. She also receives Dilaudid 0.5 mg IV. The EKG shows a sinus tachycardia at a rate of 111. There is some nonspecific ST-T wave changes noted. The [place] intervals 136, QRS is 74, and the QTc interval is 476. Further care will be passed off to oncoming shift. (Saman Cooper) - Lab Data Lab Results 05/28/17 05/28/17 05/28/17 Range/Units 23:53 23:53 23:53 WBC 11.1 H (3.8-10.6) k/uL RBC 3.67 L (3.80-5.40) m/uL Hgb 11.6 (11.4-16.0) gm/dL Hct 37.0 (34.0-46.0) % MCV 100.9 H (80.0-100.0) fL MCH 31.6 (25.0-35.0) pg MCHC 31.3 (31.0-37.0) g/dL RDW 19.5 H (11.5-15.5) % Plt Count 179 (150-450) k/uL Neutrophils % 81 % Lymphocytes % 16 % Monocytes % 2 % Eosinophils % 1 % Basophils % 0 % Neutrophils # 9.0 H (1.3-7.7) k/uL Lymphocytes # 1.8 (1.0-4.8) k/uL Monocytes # 0.2 (0-1.0) k/uL Eosinophils # 0.1 (0-0.7) k/uL Basophils # 0.0 (0-0.2) k/uL Anisocytosis Slight Macrocytosis Moderate PT (9.0-12.0) sec INR (<1.2) APTT (22.0-30.0) sec Sodium 137 (137-145) mmol/L Potassium 3.7 (3.5-5.1) mmol/L Chloride 104 (98-107) mmol/L Carbon Dioxide 23 (22-30) mmol/L Anion Gap 10 mmol/L BUN 15 (7-17) mg/dL Creatinine 0.40 L (0.52-1.04) mg/dL Est GFR (MDRD) Af Amer >60 (>60 ml/min/1.73 sqM) Est GFR (MDRD) Non-Af >60 (>60 ml/min/1.73 sqM) Glucose 104 H (74-99) mg/dL Plasma Lactic Acid Trae (0.7-2.0) mmol/L Calcium 9.3 (8.4-10.2) mg/dL Total Bilirubin 0.6 (0.2-1.3) mg/dL AST 36 (14-36) U/L ALT 56 H (9-52) U/L Alkaline Phosphatase 82 (38-126) U/L Total Creatine Kinase 24 L (30-135) U/L CK-MB (CK-2) 0.5 (0.0-2.4) ng/mL CK-MB (CK-2) Rel Index 2.1 Troponin I <0.012 (0.000-0.034) ng/mL Total Protein 6.3 (6.3-8.2) g/dL Albumin 3.5 (3.5-5.0) g/dL Urine Color Urine Appearance (Clear) Urine pH (5.0-8.0) Ur Specific [place] (1.001-1.035) Urine Protein (Negative) Urine Glucose (UA) (Negative) Urine Ketones (Negative) Urine Blood (Negative) Urine Nitrite (Negative) Urine Bilirubin (Negative) Urine Urobilinogen (<2.0) mg/dL Ur Leukocyte Esterase (Negative) Urine RBC (0-5) /hpf Urine WBC (0-5) /hpf Ur Squamous Epith Cells (0-4) /hpf Urine Mucus (None) /hpf Blood Type Blood Type Recheck Antibody Screen Spec Expiration Date 05/28/17 05/28/17 05/28/17 Range/Units 23:53 23:53 23:53 WBC (3.8-10.6) k/uL RBC (3.80-5.40) m/uL Hgb (11.4-16.0) gm/dL Hct (34.0-46.0) % MCV (80.0-100.0) fL MCH (25.0-35.0) pg MCHC (31.0-37.0) g/dL RDW (11.5-15.5) % Plt Count (150-450) k/uL Neutrophils % % Lymphocytes % % Monocytes % % Eosinophils % % Basophils % % Neutrophils # (1.3-7.7) k/uL Lymphocytes # (1.0-4.8) k/uL Monocytes # (0-1.0) k/uL Eosinophils # (0-0.7) k/uL Basophils # (0-0.2) k/uL Anisocytosis Macrocytosis PT 9.5 (9.0-12.0) sec INR 0.9 (<1.2) APTT 25.8 (22.0-30.0) sec Sodium (137-145) mmol/L Potassium (3.5-5.1) mmol/L Chloride (98-107) mmol/L Carbon Dioxide (22-30) mmol/L Anion Gap mmol/L BUN (7-17) mg/dL Creatinine (0.52-1.04) mg/dL Est GFR (MDRD) Af Amer (>60 ml/min/1.73 sqM) Est GFR (MDRD) Non-Af (>60 ml/min/1.73 sqM) Glucose (74-99) mg/dL Plasma Lactic Acid Trae 2.0 (0.7-2.0) mmol/L Calcium (8.4-10.2) mg/dL Total Bilirubin (0.2-1.3) mg/dL AST (14-36) U/L ALT (9-52) U/L Alkaline Phosphatase (38-126) U/L Total Creatine Kinase (30-135) U/L CK-MB (CK-2) (0.0-2.4) ng/mL CK-MB (CK-2) Rel Index Troponin I (0.000-0.034) ng/mL Total Protein (6.3-8.2) g/dL Albumin (3.5-5.0) g/dL Urine Color Urine Appearance (Clear) Urine pH (5.0-8.0) Ur Specific [place] (1.001-1.035) Urine Protein (Negative) Urine Glucose (UA) (Negative) Urine Ketones (Negative) Urine Blood (Negative) Urine Nitrite (Negative) Urine Bilirubin (Negative) Urine Urobilinogen (<2.0) mg/dL Ur Leukocyte Esterase (Negative) Urine RBC (0-5) /hpf Urine WBC (0-5) /hpf Ur Squamous Epith Cells (0-4) /hpf Urine Mucus (None) /hpf Blood Type A Negative Blood Type Recheck No Antibody Screen NEGATIVE Spec Expiration Date 05/31/2017 - 235205/29/17 Range/Units 01:50 WBC (3.8-10.6) k/uL RBC (3.80-5.40) m/uL Hgb (11.4-16.0) gm/dL Hct (34.0-46.0) % MCV (80.0-100.0) fL MCH (25.0-35.0) pg MCHC (31.0-37.0) g/dL RDW (11.5-15.5) % Plt Count (150-450) k/uL Neutrophils % % Lymphocytes % % Monocytes % % Eosinophils % % Basophils % % Neutrophils # (1.3-7.7) k/uL Lymphocytes # (1.0-4.8) k/uL Monocytes # (0-1.0) k/uL Eosinophils # (0-0.7) k/uL Basophils # (0-0.2) k/uL Anisocytosis Macrocytosis PT (9.0-12.0) sec INR (<1.2) APTT (22.0-30.0) sec Sodium (137-145) mmol/L Potassium (3.5-5.1) mmol/L Chloride (98-107) mmol/L Carbon Dioxide (22-30) mmol/L Anion Gap mmol/L BUN (7-17) mg/dL Creatinine (0.52-1.04) mg/dL Est GFR (MDRD) Af Amer (>60 ml/min/1.73 sqM) Est GFR (MDRD) Non-Af (>60 ml/min/1.73 sqM) Glucose (74-99) mg/dL Plasma Lactic Acid Trae (0.7-2.0) mmol/L Calcium (8.4-10.2) mg/dL Total Bilirubin (0.2-1.3) mg/dL AST (14-36) U/L ALT (9-52) U/L Alkaline Phosphatase (38-126) U/L Total Creatine Kinase (30-135) U/L CK-MB (CK-2) (0.0-2.4) ng/mL CK-MB (CK-2) Rel Index Troponin I (0.000-0.034) ng/mL Total Protein (6.3-8.2) g/dL Albumin (3.5-5.0) g/dL Urine Color Yellow Urine Appearance Clear (Clear) Urine pH 7.5 (5.0-8.0) Ur Specific [place] >1.050 H (1.001-1.035) Urine Protein 1+ H (Negative) Urine Glucose (UA) Negative (Negative) Urine Ketones Negative (Negative) Urine Blood Negative (Negative) Urine Nitrite Negative (Negative) Urine Bilirubin Negative (Negative) Urine Urobilinogen <2.0 (<2.0) mg/dL Ur Leukocyte Esterase Negative (Negative) Urine RBC 2 (0-5) /hpf Urine WBC 1 (0-5) /hpf Ur Squamous Epith Cells <1 (0-4) /hpf Urine Mucus Rare H (None) /hpf Blood Type Blood Type Recheck Antibody Screen Spec Expiration Date Disposition <Saman Cooper - Last Filed: 05/29/17 01:20> <Zita Villeda - Last Filed: 05/29/17 03:26> Clinical Impression: Fever, Metastatic lung cancer (metastasis from lung to other site), Sinus tachycardia, GI bleed, Abdominal pain, Dyspnea, Back pain, Anemia, Pelvic mass Disposition: ADMITTED IP TO THIS [facility] Condition: Poor Referrals: Mynor Kingston DO [Primary Care Provider] - 1-2 days
[2017-05-29 00:13] LABS: Anisocytosis Slight; Basophils % (A) 0 %; CH 33.1; Eosinophils # (A) 0.1 k/uL (0-0.7); Eosinophils % (A) 1 %; HDW 3.14; HGB 11.6 gm/dL (11.4-16.0); Luc # (Auto) 0.07; Luc % (Auto) 1; Lymphocytes # (A) 1.8 k/uL (1.0-4.8); Lymphocytes % (A) 16 %; MCH 31.6 pg (25.0-35.0); MCHC 31.3 g/dL (31.0-37.0); MCV 100.9 fL (80.0-100.0); Macrocytosis Moderate; Mean Platelet Volume 7.6; Monocytes # (A) 0.2 k/uL (0-1.0); Monocytes % (A) 2 %; Neutrophils % (A) 81 %; RBC 3.67 m/uL (3.80-5.40); RDW 19.5 % (11.5-15.5); WBC 11.1 k/uL (3.8-10.6); WBC (Perox) 11.81
[2017-05-29 00:25] LABS: ALT 56 U/L (9-52); AST 36 U/L (14-36); Alkaline Phosphatase 82 U/L (38-126); Anion Gap 10 mmol/L; Blood Urea Nitrogen 15 mg/dL (7-17); Calcium 9.3 mg/dL (8.4-10.2); Carbon Dioxide 23 mmol/L (22-30); Chloride 104 mmol/L (98-107); Glucose 104 mg/dL (74-99); Non-African American GFR(MDRD) >60 (>60 ml/min/1.73 sqM); Potassium 3.7 mmol/L (3.5-5.1); Sodium 137 mmol/L (137-145); Total Bilirubin 0.6 mg/dL (0.2-1.3); Total Protein 6.3 g/dL (6.3-8.2)
[2017-05-29 00:44] LABS: INR 0.9 (<1.2); Partial Thromboplastin Time 25.8 sec (22.0-30.0); Prothrombin Time 9.5 sec (9.0-12.0)
[2017-05-29 01:01] LABS: Creatine Kinase 24 U/L (30-135)
--- NOTE | 2017-05-29 01:11 | XR ---
EXAMINATION TYPE: XR chest 2V DATE OF EXAM: 05/29/2017 COMPARISON: 03/01/2016 HISTORY: Chest pain TECHNIQUE: Frontal and lateral views of the chest are obtained. FINDINGS: There is right central venous catheter with the tip probably in the superior vena cava. Th ere is a cavitating 6 cm mass in the superior segment of the left lower lobe. There is increased dens ity over the left hemithorax that is consistent with a partially fluid-filled cavity in the left uppe r lobe. There is air-fluid level. There are chest leads. IMPRESSION: Compared to the last exam of 03/01/2016 there is a new masslike area of consolidation in the superior segment left lower lobe that probably has cavitation. I see no mobile pleural effusion. There is fluid level at the left lung apex that could be a chronic hydropneumothorax with loculation and is probably also present on old chest x-ray of 03/01/2016.
[2017-05-29 01:13] LABS: Creatine Kinase MB 0.5 ng/mL (0.0-2.4); Troponin I <0.012 ng/mL (0.000-0.034)
--- NOTE | 2017-05-29 02:01 | CT ---
EXAM: CT Abdomen and Pelvis With Intravenous Contrast CLINICAL HISTORY: Rectal bleeding. History of chemotherapy and lung cancer. TECHNIQUE: Axial computed tomography images of the abdomen and pelvis with intravenous contrast. Coronal and sagittal reformatted images were created and reviewed. CTDI is 11.10, 12.80 mGy and DLP is 856.30 mGy-cm. This CT exam was performed using one or more of the following dose reduction techniques: automated exposure control, adjustment of the mA and/or kV according to patient size, and/or use of iterative reconstruction technique. CONTRAST: 100 mL of Omnipaque 300 administered intravenously. COMPARISON: No relevant prior studies available. FINDINGS: Lower thorax: Mild focal opacity in the left lower lobe, incompletely visualized. Small bilateral epicardial lymph nodes. ABDOMEN: Liver: Hepatic lesion in the anterior liver measuring approximately 6. 5 cm. Lesion appears increased in size compared to CT chest dated 05/09/2017. Additional hepatic lesions are present in the left hepatic lobe, caudate lobe and perifalciform region. Gallbladder and bile ducts: Unremarkable. No radiopaque calculi. No biliary ductal dilation. Pancreas: Unremarkable. No ductal dilation. No mass. No adjacent inflammatory changes. Spleen: Unremarkable. No splenomegaly. Adrenals: Unremarkable. No mass. Kidneys and ureters: Unremarkable. No hydronephrosis or ureteral calculus. No solid mass. Stomach and bowel: Large amount of stool in the colon with air-stool levels in the ascending and transverse colon which may indicate diarrheal state and/or constipation. No evidence of bowel wall thickening, bowel obstruction or pneumatosis. Appendix: Appendix not seen. No findings to suggest acute appendicitis. PELVIS: Bladder: Unremarkable. No mass or wall thickening. Reproductive: Large heterogeneous mass in the pelvis measuring 10.1 x 8.4 x 7.3 cm with components of fat, calcification, cystic and solid enhancing components. Uterus may be displaced by mass or surgically absent. Normal ovaries not seen. ABDOMEN and PELVIS: Intraperitoneal space: No ascites or free air. Bones/joints: Osteopenic bones. No acute fracture or suspicious osseous lesion. Soft tissues: No acute abnormality. Vasculature: Atherosclerotic vascular disease. No abdominal aortic aneurysm. Lymph nodes: Bilateral epicardial lymph nodes. No lymphadenopathy in the abdomen or pelvis. IMPRESSION: 1. Hepatic lesions suspicious for hepatic metastatic disease, largest measuring approximately 6.5 cm. This lesion appears increased in size compared to CT chest dated 05/09/2017. 2. Large heterogeneous mass in the pelvis measuring 10.1 x 8.4 x 7.3 cm with components of fat, calcification, cystic and solid enhancing components. 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 Recommend comparison with prior imaging if available and gynecology follow-up for further evaluation/management. 3. Large amount of stool in the colon with air-stool levels in the proximal colon which may indicate diarrheal state and/or constipation. Recommend clinical correlation. No evidence of colonic wall thickening, bowel obstruction, pneumatosis or free air. No CT findings to account for rectal bleeding. 4. Mild focal opacity in the left lower lobe, incompletely visualized. Focal pneumonitis not excluded. 5. Bilateral epicardial lymph nodes. Metastatic disease not excluded.
[2017-05-29 02:28] LABS: Appearance,Urine Clear (Clear); Bilirubin,Urine Negative (Negative); Glucose,Urine (UA) Negative (Negative); Ketones,Urine Negative (Negative); Leukocyte Esterase,Urine Negative (Negative); Mucus,Urine Rare /hpf; Nitrite,Urine Negative (Negative); PH, Urine 7.5 (5.0-8.0); Particle Count 1000; Protein,Urine 1+ (Negative); RBC,Urine 2 /hpf (0-5); Squamous Epithelial Cell,Urine <1 /hpf (0-4); UA Billing (MACRO vs. MICRO) MICRO; Urobilinogen,Urine <2.0 mg/dL (<2.0); WBC,Urine 1 /hpf (0-5)
[2017-05-29 02:30] LABS: Specific Gravity,Urine >1.050 (1.001-1.035)
[2017-05-29] MEDS ORDERED: ALPRAZolam 0.25 MG TAB PO STA (03:11)
[2017-05-29] MEDS: SODIUM CHLORIDE 0.9% 1,000 ML IV SCH ×2 (03:26→16:23)
[2017-05-29] MEDS ORDERED: ACETAMINOPHEN TAB 325 MG TAB PO PRN (03:26)
[2017-05-29] MEDS ORDERED: NALOXONE 0.4 MG/ML 1 ML VIAL IV PRN (03:26)
[2017-05-29] MEDS ORDERED: ALBUTEROL NEBULIZED 2.5 MG/3 ML INHALATION PRN (03:36)
[2017-05-29] MEDS ORDERED: MAGIC MOUTH WASH PO PRN (03:36)
[2017-05-29] MEDS ORDERED: ALPRAZolam 0.25 MG TAB PO PRN ×2 (03:36→14:36)
[2017-05-29] MEDS ORDERED: NYSTATIN 100,000 UNIT/ML SUSP 500,000 UNIT/5 ML CUP PO PRN (03:36)
[2017-05-29] MEDS: HYDROmorphone 1 MG/ML 1 ML SYRINGE IV PRN ×2 (03:42→16:22)
[2017-05-29] MEDS ORDERED: MAG HYDROX/AL HYDROX/SIMETH 30 ML, LIDOCAINE VISCOUS 30 ML, diphenhydrAMINE ELIXIR 75 M... PO PRN ×4 (06:25)
--- NOTE | 2017-05-29 06:55 | P.HPIM ---
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 The patient last chemotherapy was last week. She does report being on chronic pain medications and has difficulty moving her bowels despite taking Dulcolax. The patient apparently presented with her daughter reports that the patient has been confused recently as well, she reports shortness of breath with appears to be chronic. Admission she had routine labs she was noted to have a leukocytosis of 11.1, and a low-grade fever of 101.3. CT abdomen and pelvis indicating progressive metastatic disease a pelvic mass suggestive of ovarian teratoma and a large amount of stool in the colon indicating diarrhea versus constipation Review of Systems All other 14 point review of systems are negative except per HPI Past Medical History Past Medical History: Asthma, Cancer, Chest Pain / Angina, COPD, Deep Vein Thrombosis (DVT), Hearing Disorder / Deafness, Hyperlipidemia Additional Past Medical History / Comment(s): astigmatism, tube in left ear per pt's spouse pt has small cell ca- lung,lymph node,liver. pt stated had chemo last ,sun, not due for next tx for 2 weeks .home 02 1.5 ltiers n/c. appetite down tries to eat 2 meals a day and drinks 3 ensure a day History of Any Multi-Drug Resistant Organisms: None Reported Past Surgical History: Ear Surgery, Hysterectomy Additional Past Surgical History / Comment(s): partial hysterectomy, bronchoscopy, medi port rt chest, LASIK SURGERY BILATERAL EYES Past Anesthesia/Blood Transfusion Reactions: No Reported Reaction Past Psychological History: Anxiety Smoking Status: Former smoker Past Alcohol Use History: None Reported Past Drug Use History: None Reported - Past Family History Mother Family Medical History: Cancer Additional Family Medical History / Comment(s): lung and bronchial cancer, Sister(s) History Unknown: Yes Family Medical History: Deep Vein Thrombosis (DVT) Additional Family Medical History / Comment(s): factor 5 disorder Medications and Allergies Home Medications Medication Instructions Recorded Confirmed Type Albuterol Nebulized [Ventolin 2.5 mg INHALATION RT-Q4H PRN 01/02/16 05/29/17 History Nebulized] Famotidine [Pepcid] 20 mg PO BID@0800,1600 01/18/16 05/29/17 History Atorvastatin [Lipitor] 20 mg PO HS@199902/26/16 05/29/17 History Dronabinol [Marinol] 5 mg PO BID@0800,159902/26/16 05/29/17 History Rivaroxaban [Xarelto] 20 mg PO HS 02/26/16 05/29/17 History ALPRAZolam [Xanax] 0.25 mg PO BID PRN 05/28/17 05/29/17 History ALPRAZolam [Xanax] 0.25 mg PO HS@199905/28/17 05/29/17 History Albuterol Inhaler [Ventolin Hfa 2 puff INHALATION RT-Q4H PRN 05/28/17 05/29/17 History Inhaler] Bisacodyl [Dulcolax] 5 mg PO QAM 05/28/17 05/29/17 History Dexamethasone [Hexadrol] See Taper PO DAILY 05/28/17 05/29/17 History Docusate [Colace] 100 mg PO HS 05/28/17 05/29/17 History Magic Mouth Wash 5 ml PO QID PRN 05/28/17 05/29/17 History Nystatin 100,000 Unit/ml Susp 500,000 unit PO QID PRN 05/28/17 05/29/17 History [Mycostatin Oral Susp] Ondansetron [Zofran] 4 mg PO Q4H PRN 05/28/17 05/29/17 History Sucralfate [Carafate] 1 gm PO QID 05/28/17 05/29/17 History levETIRAcetam [Keppra] 1,000 mg PO BID 05/28/17 05/29/17 History oxyCODONE HCL 20 mg PO BID@0800,199905/28/17 05/29/17 History oxyCODONE-APAP 7.5-325MG [Percocet 1 tab PO Q4H PRN 05/28/17 05/29/17 History 7.5-325 mg] oxyCODONE-APAP 7.5-325MG [Percocet 1 tab PO QID 05/28/17 05/29/17 History 7.5-325 mg] Metoclopramide [Reglan] 10 mg PO TID@0800,1600,199905/29/17 05/29/17 History Allergies Allergy/AdvReac Type Severity Reaction Status Date / Time codeine Allergy Rash/Hives Verified 05/28/17 23:39 Sulfa (Sulfonamide Allergy Rash/Hives Verified 05/28/17 23:39 Antibiotics) tetracycline Allergy Rash/Hives Verified 05/28/17 23:39 Physical Exam Vitals: Vital Signs Temp Pulse Resp BP Pulse Ox 05/29/17 06:32 75 20 132/77 95 05/29/17 05:27 97.3 F L 110 H 20 136/68 98 05/29/17 04:50 115 H 22 119/64 98 05/29/17 03:47 111 H 18 134/80 98 05/29/17 03:27 118 H 20 131/70 99 05/29/17 02:57 107 H 18 127/67 97 05/29/17 01:59 98.4 F 119 H 20 149/75 99 05/29/17 01:15 112 H 18 136/82 97 05/29/17 00:33 108 H 05/29/17 00:21 117 H 05/29/17 00:14 113 H 20 124/66 100 05/28/17 23:09 101.3 F H 118 H 24 134/72 100 Intake and Output 05/28/17 05/28/17 05/29/17 14:59 22:59 06:59 Other: Weight 75.296 kg Patient Weight 05/29/17 06:59 Weight 75.296 kg Constitutional: No acute distress, conversant, pleasant Eyes: Anicteric sclerae, moist conjunctiva, no lid-lag, PERRLA ENMT: NC/AT,Oropharynx clear, no erythema, exudates Neck:Supple, FROM, no masses, or JVD, No carotid bruits; No thyromegaly Lungs: Clear to auscultation, Clear to percussion, Normal respiratory effort, no accessory muscle use Cardiovascular: Heart regular in rate and rhythm, No murmurs, gallops, or rubs no peripheral edema Abdominal: Soft Nontender, nom distended, no guarding, no rebound or rigidity, Normoactive bowel sounds No hepatomegaly, No splenomegaly, No palpable mass No abdominal wall hernia noted Skin: Normal temperature, tone, texture, turgor, No induration No subcutaneous nodules, No rash, lesions, No ulcers Extremities:No digital cyanosis No clubbing, Pedal pulses intact and symmetrical Radial pulses intact and symmetrical Normal gait and station, No calf tenderness Psychiatric: Alert and oriented to person, place and time, Appropriate affect Intact judgement Neuro: Muscles Strength 5/5 in all 4 extremities, Sensation to light touch grossly present throughout, Cranial nerves II-XII grossly intact. No focal sensory deficits Results CBC & Chem 7: 05/28/17 23:53 05/28/17 23:53 Labs: Abnormal Lab Results - Last 24 Hours (Table) 05/28/17 05/28/17 05/28/17 Range/Units 23:53 23:53 23:53 WBC 11.1 H (3.8-10.6) k/uL RBC 3.67 L (3.80-5.40) m/uL MCV 100.9 H (80.0-100.0) fL RDW 19.5 H (11.5-15.5) % Neutrophils # 9.0 H (1.3-7.7) k/uL Creatinine 0.40 L (0.52-1.04) mg/dL Glucose 104 H (74-99) mg/dL ALT 56 H (9-52) U/L Total Creatine Kinase 24 L (30-135) U/L Ur Specific [place] (1.001-1.035) Urine Protein (Negative) Urine Mucus (None) /hpf 05/29/17 Range/Units 01:50 WBC (3.8-10.6) k/uL RBC (3.80-5.40) m/uL MCV (80.0-100.0) fL RDW (11.5-15.5) % Neutrophils # (1.3-7.7) k/uL Creatinine (0.52-1.04) mg/dL Glucose (74-99) mg/dL ALT (9-52) U/L Total Creatine Kinase (30-135) U/L Ur Specific [place] >1.050 H (1.001-1.035) Urine Protein 1+ H (Negative) Urine Mucus Rare H (None) /hpf Chest x-ray: report reviewed (Masslike consolidation in the superior segment left lower lobe that probably has cavitation) Assessment and Plan (1) GI bleed Status: Acute (2) Sepsis Status: Acute (3) Abdominal pain Status: Acute (4) Metastatic lung cancer (metastasis from lung to other site) Status: Acute (5) Pelvic mass Status: Acute Plan: The patient is a 57-year-old female admitted for possible GI bleed after presenting with bright red blood per rectum anticipate a greater than t2 midnight stay. The patient is not anemic but was previously on Xarelto due to history of DVT this is been held & we'll check a Hemoccult, CT abdomen and pelvis not yielding a source of bleed Khushi's indicate worsening metastatic disease and a appearance of a pelvic mass superimposed on likely constipation. The patient is made nothing by mouth we'll trend her H&H, will start her on MiraLAX twice a day. Her oncologist has been consulted and GI as well. We'll continue IV antibiotics with Levaquin given that she has a cavitary lesion on her chest x-ray and she presented with fever and elevated white count possible sepsis due to possible postobstructive pneumonia consider ordering CT of the chest . Discussed the patient's CODE STATUS she is elected to proceed with DO NOT RESUSCITATE status Time with Patient: Greater than 30
[2017-05-29] MEDS: ALBUTEROL NEBULIZED 2.5 MG/3 ML INHALATION PRN (07:22)
[2017-05-29] MEDS: LEVOFLOXACIN 750MG-D5W PMX 750 MG in DEXTROSE/WATER 1 150ML.BAG IVPB SCH (07:56)
[2017-05-29] MEDS ORDERED: DRONABINOL 2.5 MG CAP PO SCH (08:00)
[2017-05-29] MEDS ORDERED: METOCLOPRAMIDE 10 MG TAB PO SCH (08:00)
[2017-05-29] MEDS: levETIRAcetam 500 MG TAB PO SCH ×2 (08:21→21:57)
[2017-05-29] MEDS: SUCRALFATE 1 GM TAB PO SCH ×4 (08:21→22:54)
[2017-05-29] MEDS: POLYETHYLENE GLYCOL 3350 17 GM POWD.PACK PO SCH ×2 (08:22→22:00)
[2017-05-29] MEDS: oxyCODONE-APAP 7.5-325MG 1 EACH TAB PO SCH ×4 (08:35→22:53)
[2017-05-29] MEDS: PANTOPRAZOLE 40 MG/10 ML VIAL IV SCH (08:36)
[2017-05-29] MEDS ORDERED: BISACODYL 5 MG TABLET.DR PO SCH (09:00)
[2017-05-29] MEDS ORDERED: DEXAMETHASONE 4 MG TAB PO SCH (09:00)
--- NOTE | 2017-05-29 12:31 | P.CONS ---
History of Present Illness - Reason for Consult Consult date: 05/29/17 GI bleed Requesting physician: Kailash Goldsmith - History of Present Illness 57-year-old female with a history of lung carcinoma with metastasis to brain liver chemotherapy 1 week ago presents with lower abdominal pain/rectal bleeding. Patient stated yesterday she had an upset stomach then followed by a bowel movement that was blood tinged reddish maroon in color especially on tissue. History of rectal bleeding in the past about a month ago but quickly resolved without medical assessment. She has a history of DVT Xarelto maintenance. Last bloody bowel movement was yesterday. Presently denies abdominal pain. Colonoscopy 6-8 months ago at outside facility to her memory was normal. Denies hematemesis melena. T-max 101.3. Chest x-ray left lower lobe cavitation possible chronic hydropneumothorax. CT of the abdomen and pelvis reported pelvic mass with liver metastasis and heavy stool burden no mentioning of diverticular disease, colitis or obstruction. LFTs within normal limits. Hemoglobin 11.6. White count 11.1 platelet 179. BUN 15. Creatinine 0.4. INR 0.9. Home medications include oxycodone. No NSAIDs or aspirin. She reports chronic constipation has a bowel movement every 2-4 days. Review of Systems Constitutional: Denies fever, chills, sweats, weight gain, or loss. HEENT: Negative for migraines, blurred vision or loss, earaches, drainage, tinnitus, oral mucosal lesions, dysphagia, or odynophagia. CARDIAC: Hyperlipidemia. Negative for chest pain, arrhythmias, or palpitation. RESPIRATORY: Pneumonia. Asthma. Negative for shortness of breath, hemoptysis, cough, or sputum production. GI: See HPI for pertinent findings. : Negative for hematuria, urgency, frequency, polyuria, or dysuria. GYNc: Negative vaginal discharge. MUSCULOSKELETAL: Negative for muscle aches, swelling, arthritis, and arthralgias. NEUROLOGIC: Negative for stroke or TIA. ENDOCRINE: Diabetes. Negative for thyroid problems. Hematologic: see hpi. DVT. Nephrology: Chronic kidney stones. UTI. Polycystic kidney disease. SKIN: Negative for rash or itching. PSYCHIATRIC: Negative history for depression and anxiety All systems: negative (See HPI) Past Medical History Past Medical History: Asthma, Cancer, Chest Pain / Angina, COPD, Deep Vein Thrombosis (DVT), Hearing Disorder / Deafness, Hyperlipidemia Additional Past Medical History / Comment(s): astigmatism, tube in left ear per pt's spouse pt has small cell ca- lung,lymph node,liver. pt stated had chemo last ,sun, not due for next tx for 2 weeks .home 02 1.5 ltiers n/c. appetite down tries to eat 2 meals a day and drinks 3 ensure a day History of Any Multi-Drug Resistant Organisms: None Reported Past Surgical History: Ear Surgery, Hysterectomy Additional Past Surgical History / Comment(s): partial hysterectomy, bronchoscopy, medi port rt chest, LASIK SURGERY BILATERAL EYES Past Anesthesia/Blood Transfusion Reactions: No Reported Reaction Past Psychological History: Anxiety Smoking Status: Former smoker Past Alcohol Use History: None Reported Past Drug Use History: None Reported - Past Family History Mother Family Medical History: Cancer Additional Family Medical History / Comment(s): lung and bronchial cancer, Sister(s) History Unknown: Yes Family Medical History: Deep Vein Thrombosis (DVT) Additional Family Medical History / Comment(s): factor 5 disorder Father Family Medical History: No Reported History Additional Family Medical History / Comment(s): Father is healthy and is 78yrs old. Medications and Allergies Home Medications Medication Instructions Recorded Confirmed Type Albuterol Nebulized [Ventolin 2.5 mg INHALATION RT-Q4H PRN 01/02/16 05/29/17 History Nebulized] Famotidine [Pepcid] 20 mg PO BID@0800,1600 01/18/16 05/29/17 History Atorvastatin [Lipitor] 20 mg PO HS@199902/26/16 05/29/17 History Dronabinol [Marinol] 5 mg PO BID@0800,1600 02/26/16 05/29/17 History Rivaroxaban [Xarelto] 20 mg PO HS 02/26/16 05/29/17 History ALPRAZolam [Xanax] 0.25 mg PO BID PRN 05/28/17 05/29/17 History ALPRAZolam [Xanax] 0.25 mg PO HS@199905/28/17 05/29/17 History Albuterol Inhaler [Ventolin Hfa 2 puff INHALATION RT-Q4H PRN 05/28/17 05/29/17 History Inhaler] Bisacodyl [Dulcolax] 5 mg PO QAM 05/28/17 05/29/17 History Dexamethasone [Hexadrol] See Taper PO DAILY 05/28/17 05/29/17 History Docusate [Colace] 100 mg PO HS 05/28/17 05/29/17 History Magic Mouth Wash 5 ml PO QID PRN 05/28/17 05/29/17 History Nystatin 100,000 Unit/ml Susp 500,000 unit PO QID PRN 05/28/17 05/29/17 History [Mycostatin Oral Susp] Ondansetron [Zofran] 4 mg PO Q4H PRN 05/28/17 05/29/17 History Sucralfate [Carafate] 1 gm PO QID 05/28/17 05/29/17 History levETIRAcetam [Keppra] 1,000 mg PO BID 05/28/17 05/29/17 History oxyCODONE HCL 20 mg PO BID@0800,199905/28/17 05/29/17 History oxyCODONE-APAP 7.5-325MG [Percocet 1 tab PO Q4H PRN 05/28/17 05/29/17 History 7.5-325 mg] oxyCODONE-APAP 7.5-325MG [Percocet 1 tab PO QID 05/28/17 05/29/17 History 7.5-325 mg] Metoclopramide [Reglan] 10 mg PO TID@0800,1600,199905/29/17 05/29/17 History Allergies Allergy/AdvReac Type Severity Reaction Status Date / Time codeine Allergy Rash/Hives Verified 05/28/17 23:39 Sulfa (Sulfonamide Allergy Rash/Hives Verified 05/28/17 23:39 Antibiotics) tetracycline Allergy Rash/Hives Verified 05/28/17 23:39 Physical Exam Vitals: Vital Signs Temp Pulse Resp BP Pulse Ox 05/29/17 10:52 119 H 18 104/58 99 05/29/17 09:50 119 H 18 115/57 97 05/29/17 08:15 97.8 F 117 H 20 104/57 99 05/29/17 07:33 110 H 05/29/17 07:23 104 H 05/29/17 06:55 94 20 110/57 98 05/29/17 06:32 75 20 132/77 95 05/29/17 05:27 97.3 F L 110 H 20 136/68 98 05/29/17 04:50 115 H 22 119/64 98 05/29/17 03:47 111 H 18 134/80 98 05/29/17 03:27 118 H 20 131/70 99 05/29/17 02:57 107 H 18 127/67 97 05/29/17 01:59 98.4 F 119 H 20 149/75 99 05/29/17 01:15 112 H 18 136/82 97 05/29/17 00:33 108 H 05/29/17 00:21 117 H 05/29/17 00:14 113 H 20 124/66 100 05/28/17 23:09 101.3 F H 118 H 24 134/72 100 Intake and Output 05/28/17 05/29/17 05/29/17 22:59 06:59 14:59 Other: Weight 75.296 kg General appearance: The patient is alert, oriented, in no acute distress. HET: Head is normocephalic and atraumatic. Pupils are equal and reactive. Hair thin distribution balding. Oropharynx is clear without lesions. Neck: Supple without lymphadenopathy. Trachea midline. Heart: S1 S2. Regular rate and rhythm. Mediport without erythema or drainage. Lungs: No crackles or wheezes are heard. Abdomen: Soft, nontender, nondistended with bowel sounds. No peritoneal signs. No palpable organomegaly or masses. Extremities: Normal skin color and turgor. No cyanosis, rash, ulceration, clubbing, or edema. Radial and pedal pulses are 2/4 bilaterally. Neurological: No focal deficits. Strength and sensation are grossly intact. Rectal: External nonthrombosed tag. No blood on finger. No palpable internal masses. Results CBC & Chem 7: 05/28/17 23:53 05/28/17 23:53 Labs: Abnormal Lab Results - Last 24 Hours (Table) 05/28/17 05/28/17 05/28/17 Range/Units 23:53 23:53 23:53 WBC 11.1 H (3.8-10.6) k/uL RBC 3.67 L (3.80-5.40) m/uL MCV 100.9 H (80.0-100.0) fL RDW 19.5 H (11.5-15.5) % Neutrophils # 9.0 H (1.3-7.7) k/uL Creatinine 0.40 L (0.52-1.04) mg/dL Glucose 104 H (74-99) mg/dL ALT 56 H (9-52) U/L Total Creatine Kinase 24 L (30-135) U/L Ur Specific [place] (1.001-1.035) Urine Protein (Negative) Urine Mucus (None) /hpf 05/29/17 Range/Units 01:50 WBC (3.8-10.6) k/uL RBC (3.80-5.40) m/uL MCV (80.0-100.0) fL RDW (11.5-15.5) % Neutrophils # (1.3-7.7) k/uL Creatinine (0.52-1.04) mg/dL Glucose (74-99) mg/dL ALT (9-52) U/L Total Creatine Kinase (30-135) U/L Ur Specific [place] >1.050 H (1.001-1.035) Urine Protein 1+ H (Negative) Urine Mucus Rare H (None) /hpf Microbiology - Last 24 Hours (Table) 05/29/17 01:50 Urine Culture - Preliminary Urine,Catheterized Assessment and Plan (1) Rectal bleeding Narrative/Plan: Possible exacerbated by anticoagulation from heavy stool burden constipation. Suspect perianal pathology. Recent colonoscopy 6-8 months ago with no mentioning of diverticular hemorrhoidal disease. Ischemic pathology cannot be entirely excluded. Status: Acute (2) Metastatic lung cancer (metastasis from lung to other site) Status: Chronic Plan: 1. Rectal bleeding has slowed down. Stool softeners twice daily with gentle laxatives. 2. Full liquid diet and observe. Repeat endoscopy not planned at this time. Anticoagulation has been placed on hold. Will follow closely with you. CBC monitoring. Patient and family agreeable with plan of care. Thank you for this kind referral and the opportunity to participate in the care of your patient. This consultation was discussed with Dr. Caldwell. The impression and plan of care have been directed as dictated.
--- NOTE | 2017-05-29 13:51 | P.PN ---
Progress Note - Text 57 year old female with history of metastatic lung cancer. Presented due to rectal bleeding was found also to have postobstructive pneumonia. I saw the patient in the ED still waiting for placement has no new complaints. Reports no further rectal bleeds since morning. We will continue to monitor hemoglobin closely, currently we are holding blood thinners which she is using due to history of blood clots
[2017-05-29] MEDS ORDERED: ALPRAZolam 0.25 MG TAB PO SCH ×2 (16:00→20:00)
[2017-05-29 18:24] LABS: Anisocytosis Slight; CH 32.1; CHCM 31.3; HCT 37.7 % (34.0-46.0); HDW 3.19; Hypochromasia Moderate; MCH 32.8 pg (25.0-35.0); MCHC 31.9 g/dL (31.0-37.0); MCV 102.9 fL (80.0-100.0); Macrocytosis Moderate; Mean Platelet Volume 7.3; RBC 3.66 m/uL (3.80-5.40); RDW 18.6 % (11.5-15.5); WBC 7.7 k/uL (3.8-10.6); WBC (Perox) 7.44
[2017-05-29 18:50] LABS: Add Differential Manual Differential
[2017-05-29 18:52] LABS: Band Neutrophils % 5 %; Nucleated Red Blood Cells 0 /100 WBC (0-0); Total Cells Counted 100
[2017-05-29 18:54] LABS: Manual Review Performed; Polychromasia Present
[2017-05-29] MEDS ORDERED: ATORVASTATIN 20 MG TAB PO SCH (20:00)
[2017-05-29] MEDS ORDERED: DOCUSATE 100 MG CAP PO SCH (21:00)
[2017-05-29] MEDS: SENNOSIDES-DOCUSATE SODIUM 1 EACH TAB PO SCH (22:00)
[2017-05-29] MEDS: oxyCODONE-APAP 7.5-325MG 1 EACH TAB PO PRN (23:23)
[2017-05-30 00:16] LABS: Anisocytosis Slight; Basophils % (A) 0 %; CH 31.9; Eosinophils # (A) 0.1 k/uL (0-0.7); Eosinophils % (A) 1 %; HCT 33.9 % (34.0-46.0); HDW 3.17; HGB 10.5 gm/dL (11.4-16.0); Hypochromasia Moderate; Luc # (Auto) 0.07; Luc % (Auto) 1; Lymphocytes # (A) 1.1 k/uL (1.0-4.8); Lymphocytes % (A) 16 %; MCV 103.2 fL (80.0-100.0); Macrocytosis Moderate; Mean Platelet Volume 7.1; Monocytes # (A) 0.2 k/uL (0-1.0); Monocytes % (A) 2 %; Neutrophils # (A) 5.8 k/uL (1.3-7.7); Neutrophils % (A) 80 %; RBC 3.29 m/uL (3.80-5.40); RDW 18.6 % (11.5-15.5); WBC 7.3 k/uL (3.8-10.6); WBC (Perox) 7.27
[2017-05-30 04:09] LABS: Anisocytosis Slight; Basophils % (A) 0 %; CH 32.5; CHCM 32.7; Eosinophils # (A) 0.1 k/uL (0-0.7); Eosinophils % (A) 1 %; HCT 31.8 % (34.0-46.0); HDW 3.18; Luc # (Auto) 0.03; Luc % (Auto) 1; Lymphocytes # (A) 1.1 k/uL (1.0-4.8); Lymphocytes % (A) 19 %; MCH 31.5 pg (25.0-35.0); MCHC 31.5 g/dL (31.0-37.0); Macrocytosis Moderate; Mean Platelet Volume 7.5; Monocytes # (A) 0.1 k/uL (0-1.0); Monocytes % (A) 2 %; Neutrophils # (A) 4.5 k/uL (1.3-7.7); Neutrophils % (A) 77 %; RBC 3.18 m/uL (3.80-5.40); RDW 19.4 % (11.5-15.5); WBC 5.9 k/uL (3.8-10.6); WBC (Perox) 6.07
[2017-05-30 04:16] LABS: ALT 57 U/L (9-52); AST 32 U/L (14-36); Alkaline Phosphatase 83 U/L (38-126); Anion Gap 7 mmol/L; Blood Urea Nitrogen 9 mg/dL (7-17); Calcium 8.1 mg/dL (8.4-10.2); Carbon Dioxide 23 mmol/L (22-30); Chloride 103 mmol/L (98-107); Glucose 93 mg/dL (74-99); Non-African American GFR(MDRD) >60 (>60 ml/min/1.73 sqM); Potassium 3.1 mmol/L (3.5-5.1); Sodium 133 mmol/L (137-145); Total Bilirubin 0.6 mg/dL (0.2-1.3); Total Protein 4.8 g/dL (6.3-8.2)
[2017-05-30] MEDS: ALBUTEROL NEBULIZED 2.5 MG/3 ML INHALATION PRN ×4 (07:08→19:18)
--- NOTE | 2017-05-30 08:45 | P.PN ---
Subjective Principal diagnosis: Rectal bleeding No bleeding. Passing flatus. Denies abdominal pain. Reports fatigue this morning. Hemoglobin 10. Objective - Vital Signs Vital signs: Vital Signs Temp 98.6 F 05/30/17 07:00 Pulse 100 05/30/17 07:21 Resp 22 05/30/17 07:00 BP 109/55 05/30/17 07:00 Pulse Ox 96 05/30/17 07:11 Intake & Output 05/29/17 05/30/17 05/30/17 18:59 06:59 18:59 Intake Total 890 Output Total 850 1300 Balance -850 -410 Intake: Intake, IV Titration 300 Amount Sodium Chloride 0.9% 1, 300 000 ml @ 100 mls/hr IV . Q10H [facility] Rx#:[id number] Oral 590 Output: Urine 850 1300 Other: Voiding Method Indwelling Catheter - Constitutional General appearance: Present: average body habitus, no acute distress - EENT Eyes: Present: normal appearance - Neck Neck: Present: normal ROM - Respiratory Respiratory: bilateral: diminished (in bases slightly) - Cardiovascular Rhythm: regular Heart sounds: normal: S1, S2 - Gastrointestinal Gastrointestinal Comment(s): nontender General gastrointestinal: Present: soft - Musculoskeletal Musculoskeletal: Present: strength equal bilaterally - Psychiatric Psychiatric: Present: A&O x's 3, appropriate affect, intact judgment & insight - Labs CBC & Chem 7: 05/30/17 03:49 05/30/17 03:49 Labs: Abnormal Lab Results - Last 24 Hours (Table) 05/29/17 05/29/17 05/30/17 Range/Units 17:54 23:26 03:49 RBC 3.66 L 3.29 L 3.18 L (3.80-5.40) m/uL Hgb 10.5 L 10.0 L (11.4-16.0) gm/dL Hct 33.9 L 31.8 L (34.0-46.0) % MCV 102.9 H 103.2 H (80.0-100.0) fL RDW 18.6 H 18.6 H 19.4 H (11.5-15.5) % Plt Count 99 L 131 L 137 L (150-450) k/uL Sodium (137-145) mmol/L Potassium (3.5-5.1) mmol/L Creatinine (0.52-1.04) mg/dL Calcium (8.4-10.2) mg/dL ALT (9-52) U/L Total Protein (6.3-8.2) g/dL Albumin (3.5-5.0) g/dL 05/30/17 Range/Units 03:49 RBC (3.80-5.40) m/uL Hgb (11.4-16.0) gm/dL Hct (34.0-46.0) % MCV (80.0-100.0) fL RDW (11.5-15.5) % Plt Count (150-450) k/uL Sodium 133 L (137-145) mmol/L Potassium 3.1 L (3.5-5.1) mmol/L Creatinine 0.30 L (0.52-1.04) mg/dL Calcium 8.1 L (8.4-10.2) mg/dL ALT 57 H (9-52) U/L Total Protein 4.8 L (6.3-8.2) g/dL Albumin 2.5 L (3.5-5.0) g/dL Microbiology - Last 24 Hours (Table) 05/28/17 23:53 Blood Culture - Preliminary Blood No Growth after 24 hours 05/29/17 01:50 Urine Culture - Preliminary Urine,Catheterized Assessment and Plan (1) Rectal bleeding Narrative/Plan: Possible exacerbated by anticoagulation from heavy stool burden constipation. Suspect perianal pathology. Recent colonoscopy 6-8 months ago with no mentioning of diverticular hemorrhoidal disease. Ischemic pathology cannot be entirely excluded. Status: Acute (2) Metastatic lung cancer (metastasis from lung to other site) Status: Chronic Plan: 1. Stool softeners. Soft diet as tolerated. Supportive measures. CBC monitoring. Assessment and plan of care discussed with Dr. Caldwell.
[2017-05-30 09:20] LABS: Anisocytosis Slight; Basophils % (A) 0 %; CH 31.9; CHCM 31.7; Eosinophils # (A) 0.1 k/uL (0-0.7); Eosinophils % (A) 2 %; HCT 30.5 % (34.0-46.0); HDW 3.19; HGB 9.9 gm/dL (11.4-16.0); Hypochromasia Slight; Luc # (Auto) 0.08; Luc % (Auto) 1; Lymphocytes # (A) 1.2 k/uL (1.0-4.8); Lymphocytes % (A) 20 %; MCH 32.9 pg (25.0-35.0); MCHC 32.5 g/dL (31.0-37.0); Macrocytosis Moderate; Mean Platelet Volume 8.1; Monocytes # (A) 0.2 k/uL (0-1.0); Monocytes % (A) 3 %; Neutrophils # (A) 4.5 k/uL (1.3-7.7); Neutrophils % (A) 74 %; RBC 3.02 m/uL (3.80-5.40); RDW 18.6 % (11.5-15.5); WBC 6.1 k/uL (3.8-10.6); WBC (Perox) 6.09
[2017-05-30] MEDS: LEVOFLOXACIN 750MG-D5W PMX 750 MG in DEXTROSE/WATER 1 150ML.BAG IVPB SCH (09:49)
[2017-05-30] MEDS: levETIRAcetam 500 MG TAB PO SCH ×2 (09:49→20:40)
[2017-05-30] MEDS: POLYETHYLENE GLYCOL 3350 17 GM POWD.PACK PO SCH ×2 (09:50→20:40)
[2017-05-30] MEDS: oxyCODONE-APAP 7.5-325MG 1 EACH TAB PO SCH ×3 (09:50→18:54)
[2017-05-30] MEDS: SUCRALFATE 1 GM TAB PO SCH ×4 (09:50→23:55)
[2017-05-30] MEDS: PANTOPRAZOLE 40 MG/10 ML VIAL IV SCH (09:50)
[2017-05-30] MEDS: SODIUM CHLORIDE 0.9% 1,000 ML IV SCH ×3 (09:55→14:19)
[2017-05-30] MEDS: SENNOSIDES-DOCUSATE SODIUM 1 EACH TAB PO SCH ×2 (10:05→20:40)
[2017-05-30] MEDS: ONDANSETRON 4 MG/2 ML VIAL IVP PRN ×2 (11:07→16:58)
[2017-05-30] MEDS: HYDROmorphone 1 MG/ML 1 ML SYRINGE IV PRN ×2 (11:07→16:58)
[2017-05-30 12:54] LABS: Anisocytosis Slight; Basophils % (A) 0 %; CH 32.1; CHCM 32.5; Eosinophils # (A) 0.1 k/uL (0-0.7); Eosinophils % (A) 1 %; HCT 30.7 % (34.0-46.0); HDW 3.24; HGB 10.1 gm/dL (11.4-16.0); Hypochromasia Slight; Luc # (Auto) 0.05; Luc % (Auto) 1; Lymphocytes # (A) 0.8 k/uL (1.0-4.8); Lymphocytes % (A) 15 %; MCH 32.8 pg (25.0-35.0); MCV 99.4 fL (80.0-100.0); Macrocytosis Slight; Monocytes # (A) 0.2 k/uL (0-1.0); Monocytes % (A) 4 %; Neutrophils # (A) 4.5 k/uL (1.3-7.7); Neutrophils % (A) 79 %; RBC 3.09 m/uL (3.80-5.40); RDW 18.6 % (11.5-15.5); WBC 5.6 k/uL (3.8-10.6); WBC (Perox) 5.27
[2017-05-30 14:44] LABS: Anisocytosis Slight; Basophils % (A) 0 %; CH 32.1; CHCM 32.6; Eosinophils # (A) 0.1 k/uL (0-0.7); Eosinophils % (A) 1 %; HCT 30.2 % (34.0-46.0); HDW 3.33; HGB 10.1 gm/dL (11.4-16.0); Hypochromasia Slight; Luc # (Auto) 0.08; Luc % (Auto) 2; Lymphocytes # (A) 0.9 k/uL (1.0-4.8); Lymphocytes % (A) 17 %; MCH 33.1 pg (25.0-35.0); MCHC 33.4 g/dL (31.0-37.0); Macrocytosis Slight; Mean Platelet Volume 6.8; Monocytes # (A) 0.2 k/uL (0-1.0); Monocytes % (A) 3 %; Neutrophils # (A) 4.1 k/uL (1.3-7.7); Neutrophils % (A) 77 %; RBC 3.05 m/uL (3.80-5.40); RDW 18.6 % (11.5-15.5); WBC 5.3 k/uL (3.8-10.6); WBC (Perox) 4.97
--- NOTE | 2017-05-30 17:38 | P.CNPUL ---
History of Present Illness Consult date: 05/30/17 Requesting physician: Jo Ireland Reason for consult: other (Small cell lung cancer and abnormal chest x-ray and CT of the chest.) Chief complaint: Rectal bleeding History of present illness: This is a 57-year-old female with history of small cell lung cancer, patient was diagnosed back in January of 2016, and the diagnosis was made by Dr. Arana, patient underwent bronchoscopy and paratracheal lymph node aspiration. 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 Underwent radiation treatment to the brain, and all along she continued to have abnormal CT of the chest and abnormal chest x-ray showing a masslike consolidation in the superior segment of the left lower lobe with cavitation, and there was also air fluid level at the left lung apex. In spite of the findings, the patient does not have symptoms to suggest ongoing infection although she does have occasional cough with purulent sputum. No fever, no chills, no hemoptysis. Patient is still under the care of Dr. Ortiz, and she is still receiving chemotherapy. This time, the patient presented with one- week history of lower abdominal pain and rectal bleeding. She did have previous history of rectal bleeding however it resolved without any major intervention. In addition to the rectal bleeding, the patient was noted to have fever with a temp of 101.3, and again the chest x-ray showing obese abnormalities in the left lung with cavitation and possible hydropneumothorax, this consult was initiated. Patient was seen by GI on consultation, and at this point her rectal bleeding resolved without any intervention. Advised to be placed on stool softeners mostly. As far as the CT of the chest and chest x- ray are concerned, I have reviewed previous x-rays and scans of the chest going back to January of 2016, last CT of the chest showed cavitary lesion in the left upper lobe and mixed density with air and air fluid levels present. The area has enlarged to approximately 6.59.38.5 cm in size extending to the hilar region with encasement of the left pulmonary artery as well as branches. There is also a large amount of fluid density present within the cavity with air- fluid level extending towards the mediastinum at the thoracic inlet level. There is also mediastinal adenopathy in the retrocaval and pretracheal as well as subcarinal locations. All in all this is basically pointing to worsening small cell lung cancer and possible underlying infection is not entirely ruled out. Surprisingly, the patient does not seem to be as symptomatic as she should be compared to the findings noted on the CT of the chest and chest x-ray. Review of Systems Constitutional: Patient does have intermittent fevers, no chills, no weight loss , no weight gain. HEENT: Negative for migraines, blurred vision or loss, earaches, drainage, tinnitus, oral mucosal lesions, dysphagia, or odynophagia. CARDIAC: No chest pain, no palpitations. RESPIRATORY: As noted in the history of the present illness. GI: As noted in the history of the present illness.. : Negative for hematuria, urgency, frequency, polyuria, or dysuria. MUSCULOSKELETAL: Negative for muscle aches, swelling, arthritis, and arthralgias. NEUROLOGIC: No headaches no blurred vision no dizziness. ENDOCRINE: Diabetes. Negative for thyroid problems. Hematologic: History of deep vein thrombosis, maintained on Xarelto. Nephrology: Chronic kidney stones. History of polycystic kidney SKIN: Negative for rash or itching. PSYCHIATRIC: Negative history for depression and anxiety Past Medical History Past Medical History: Asthma, Cancer, Chest Pain / Angina, COPD, Deep Vein Thrombosis (DVT), Hearing Disorder / Deafness, Hyperlipidemia Additional Past Medical History / Comment(s): astigmatism, tube in left ear per pt's spouse pt has small cell ca- lung,lymph node,liver. pt stated had chemo last ,wed, th not due for next tx for 2 weeks .home 02 1.5 ltiers n/c. appetite down tries to eat 2 meals a day and drinks 3 ensure a day History of Any Multi-Drug Resistant Organisms: None Reported Past Surgical History: Ear Surgery, Hysterectomy Additional Past Surgical History / Comment(s): partial hysterectomy, bronchoscopy, medi port rt chest, LASIK SURGERY BILATERAL EYES Past Anesthesia/Blood Transfusion Reactions: No Reported Reaction Past Psychological History: Anxiety Smoking Status: Former smoker Past Alcohol Use History: None Reported Past Drug Use History: None Reported - Past Family History Mother Family Medical History: Cancer Additional Family Medical History / Comment(s): lung and bronchial cancer, Sister(s) History Unknown: Yes Family Medical History: Deep Vein Thrombosis (DVT) Additional Family Medical History / Comment(s): factor 5 disorder Father Family Medical History: No Reported History Additional Family Medical History / Comment(s): Father is healthy and is 78yrs old. Medications and Allergies Home Medications Medication Instructions Recorded Confirmed Type Albuterol Nebulized [Ventolin 2.5 mg INHALATION RT-Q4H PRN 01/02/16 05/29/17 History Nebulized] Famotidine [Pepcid] 20 mg PO BID@0800,159901/18/16 05/29/17 History Atorvastatin [Lipitor] 20 mg PO HS@199902/26/16 05/29/17 History Dronabinol [Marinol] 5 mg PO BID@0800,159902/26/16 05/29/17 History Rivaroxaban [Xarelto] 20 mg PO HS 02/26/16 05/29/17 History ALPRAZolam [Xanax] 0.25 mg PO BID PRN 05/28/17 05/29/17 History ALPRAZolam [Xanax] 0.25 mg PO HS@199905/28/17 05/29/17 History Albuterol Inhaler [Ventolin Hfa 2 puff INHALATION RT-Q4H PRN 05/28/17 05/29/17 History Inhaler] Bisacodyl [Dulcolax] 5 mg PO QAM 05/28/17 05/29/17 History Dexamethasone [Hexadrol] See Taper PO DAILY 05/28/17 05/29/17 History Docusate [Colace] 100 mg PO HS 05/28/17 05/29/17 History Magic Mouth Wash 5 ml PO QID PRN 05/28/17 05/29/17 History Nystatin 100,000 Unit/ml Susp 500,000 unit PO QID PRN 05/28/17 05/29/17 History [Mycostatin Oral Susp] Ondansetron [Zofran] 4 mg PO Q4H PRN 05/28/17 05/29/17 History Sucralfate [Carafate] 1 gm PO QID 05/28/17 05/29/17 History levETIRAcetam [Keppra] 1,000 mg PO BID 05/28/17 05/29/17 History oxyCODONE HCL 20 mg PO BID@0800,199905/28/17 05/29/17 History oxyCODONE-APAP 7.5-325MG [Percocet 1 tab PO Q4H PRN 05/28/17 05/29/17 History 7.5-325 mg] oxyCODONE-APAP 7.5-325MG [Percocet 1 tab PO QID PRN 05/28/17 05/29/17 History 7.5-325 mg] Metoclopramide [Reglan] 10 mg PO TID@0800,1599,199905/29/17 05/29/17 History Allergies Allergy/AdvReac Type Severity Reaction Status Date / Time codeine Allergy Rash/Hives Verified 05/28/17 23:39 Sulfa (Sulfonamide Allergy Rash/Hives Verified 05/28/17 23:39 Antibiotics) tetracycline Allergy Rash/Hives Verified 05/28/17 23:39 Physical Exam Vitals: Vital Signs Temp Pulse Pulse Resp BP BP BP 05/30/17 15:23 120 H 05/30/17 15:18 112 H 05/30/17 15:05 97.7 F 116 H 22 113/63 05/30/17 10:29 112 H 05/30/17 07:21 100 05/30/17 07:11 106 H 05/30/17 07:00 98.6 F 112 H 22 109/55 05/29/17 23:00 97.7 F 132 H 16 150/77 05/29/17 17:26 98.6 F 117 H 18 140/67 Pulse Ox 05/30/17 15:23 05/30/17 15:18 05/30/17 15:05 95 05/30/17 10:29 05/30/17 07:21 05/30/17 07:11 96 05/30/17 07:00 96 05/29/17 23:00 98 05/29/17 17:26 99 Intake and Output 05/30/17 05/30/17 05/30/17 06:59 14:59 22:59 Intake Total 590 1430 Output Total 1300 Balance -710 1430 Intake: Intake, IV Titration 950 Amount Levofloxacin 750Mg-D5w 150 Pmx 750 mg In Dextrose/ Water 1 150ml.bag @ 100 mls/hr IVPB Q24H [facility] Rx#: [id number] Sodium Chloride 0.9% 1, 800 000 ml @ 100 mls/hr IV . Q10H [facility] Rx#:[id number] Oral 590 480 Output: Urine 1300 Other: Voiding Method Indwelling Catheter Indwelling Catheter Indwelling Catheter General appearance: Physical examination revealed a 57-year-old female, cushingoid looking, obese, in no form of respiratory distress. Head: Cushingoid looking. Pupils are equal and reactive. Hair thin distribution balding. Oropharynx is clear without lesions. Neck: Supple without lymphadenopathy. Evidence of supraclavicular fullness and fat noted. Heart: Normal S1 and S2, no gallops. Lungs: Diminished breath sound bilaterally, some wheezing on forced expiratory maneuver was noted. Abdomen: Soft, nontender, nondistended with bowel sounds. No peritoneal signs. No palpable organomegaly or masses. Extremities: No clubbing, no edema, no cyanosis. Radial and pedal pulses are 2/ 4 bilaterally. Neurological: No focal deficits. Strength and sensation are grossly intact. Skin: Normal skin turgor, No evidence of rashes. And no ulcerations. Results - Laboratory Findings CBC and BMP: 05/30/17 14:28 05/30/17 03:49 PT/INR, D-dimer PT 9.5 sec (9.0-12.0) 05/28/17 23:53 INR 0.9 (<1.2) 05/28/17 23:53 Abnormal lab findings: Abnormal Labs 05/28/17 05/28/17 05/28/17 23:53 23:53 23:53 WBC 11.1 H RBC 3.67 L Hgb Hct MCV 100.9 H RDW 19.5 H Plt Count Neutrophils # 9.0 H Lymphocytes # Sodium Potassium Creatinine 0.40 L Glucose 104 H Calcium ALT 56 H Total Creatine Kinase 24 L Total Protein Albumin Ur Specific [place] Urine Protein Urine Mucus 05/29/17 05/29/17 05/29/17 01:50 17:54 23:26 WBC RBC 3.66 L 3.29 L Hgb 10.5 L Hct 33.9 L MCV 102.9 H 103.2 H RDW 18.6 H 18.6 H Plt Count 99 L 131 L Neutrophils # Lymphocytes # Sodium Potassium Creatinine Glucose Calcium ALT Total Creatine Kinase Total Protein Albumin Ur Specific [place] >1.050 H Urine Protein 1+ H Urine Mucus Rare H 05/30/17 05/30/1717 03:49 03:49 07:08 WBC RBC 3.18 L 3.02 L Hgb 10.0 L 9.9 L Hct 31.8 L 30.5 L MCV 101.0 H RDW 19.4 H 18.6 H Plt Count 137 L 127 L Neutrophils # Lymphocytes # Sodium 133 L Potassium 3.1 L Creatinine 0.30 L Glucose Calcium 8.1 L ALT 57 H Total Creatine Kinase Total Protein 4.8 L Albumin 2.5 L Ur Specific [place] Urine Protein Urine Mucus 05/30/17 05/30/17 11:28 14:28 WBC RBC 3.09 L 3.05 L Hgb 10.1 L 10.1 L Hct 30.7 L 30.2 L MCV RDW 18.6 H 18.6 H Plt Count 120 L 138 L Neutrophils # Lymphocytes # 0.8 L 0.9 L Sodium Potassium Creatinine Glucose Calcium ALT Total Creatine Kinase Total Protein Albumin Ur Specific [place] Urine Protein Urine Mucus - Diagnostic Findings Chest x-ray: image reviewed CT scan - chest: image reviewed Assessment and Plan Plan: Impression: 1 acute rectal bleeding, likely related to constipation, resolved. May have been worsened with the fact that the patient is on Xarelto. 2 cavitary lung mass, secondary to advanced small cell lung cancer with large tumor involving the left midlung. The tumor itself seems to be cavitating, underlying infection is not entirely ruled out, however the patient is not the most ideal candidate for bronchoscopy, at this point I would recommend antibiotics orally on a long-term basis upon discharge. And follow-up on outpatient basis. 3 hydropneumothorax involving the left lung possibility of lung abscess or infected bulla in the left upper lobe is likely. Hence antibiotics would be appropriate, patient would not benefit from any intervention at this point. 4 metastatic small cell lung cancer involving lungs, liver, and brain. Recommendation: Continue present treatment plan, consider outpatient course of antibiotics, for a long period of time, prognosis at this point is definitely poor and guarded. Check sputum cultures, and adjust the antibiotics accordingly based on the sputum cultures. Again the patient is not an ideal candidate for bronchoscopy or any other form of intervention at this point. Prognosis is poor. Time with Patient: Greater than 30
[2017-05-30] MEDS: oxyCODONE-APAP 7.5-325MG 1 EACH TAB PO PRN (18:31)
--- NOTE | 2017-05-30 19:45 | P.PN ---
Subjective Principal diagnosis: rectal bleeding A 57-year-old female known history of COPD/oxygen dependent on 1.5 L via nasal cannula, chronic respiratory failure, history of DVT on Xarelto and small cell lung cancer with metastasis to brain and liver presents to the ER with chief complaint of rectal bleeding and bright red blood per rectum 2 just shortly prior to arrival the patient has been experiencing some bilateral lower abdominal pain which she reports as it is severe without any radiation. The patient last chemotherapy was last week. She does report being on chronic pain medications and has difficulty moving her bowels despite taking Dulcolax. The patient apparently presented with her daughter reports that the patient has been confused recently as well, she reports shortness of breath with appears to be chronic. Admission she had routine labs she was noted to have a leukocytosis of 11.1, and a low-grade fever of 101.3. CT abdomen and pelvis indicating progressive metastatic disease a pelvic mass suggestive of ovarian teratoma and a large amount of stool in the colon indicating diarrhea versus constipation CXR showed a large xcavitary L lesion She was confused and could not give any proper reliable hx. No reported rec rectal bleed by nurse staff Objective - Vital Signs Vital signs: Vital Signs Temp 97.7 F 05/30/17 15:05 Pulse 112 H 05/30/17 19:19 Resp 22 05/30/17 18:23 BP 117/64 05/30/17 18:23 Pulse Ox 99 05/30/17 18:23 Intake & Output 05/30/17 05/30/17 05/31/17 06:59 18:59 06:59 Intake Total 890 1430 Output Total 1300 Balance -410 1430 Intake: Intake, IV Titration 300 950 Amount Levofloxacin 750Mg-D5w 150 Pmx 750 mg In Dextrose/ Water 1 150ml.bag @ 100 mls/hr IVPB Q24H [facility] Rx#: [id number] Sodium Chloride 0.9% 1, 300 800 000 ml @ 100 mls/hr IV . Q10H [facility] Rx#:[id number] Oral 590 480 Output: Urine 1300 Other: Voiding Method Indwelling Catheter Indwelling Catheter - Constitutional General appearance: Present: cooperative, obese - EENT Eyes: Present: anicteric sclerae, EOMI, PERRLA ENT: Present: NA/AT - Neck Neck: Present: normal ROM. Absent: rigidity, stridor, thyromegaly Carotids: bilateral: upstroke normal, bruit absent Thyroid: negative: normal size, enlarged, firm, nodule - Respiratory Respiratory: left: diminished, rales, rhonchi - Cardiovascular Rhythm: regular Heart sounds: normal: S1, S2 Abnormal Heart Sounds: Absent: systolic murmur, diastolic murmur, rub, S3 Gallop , S4 Gallop, click, other - Gastrointestinal General gastrointestinal: Present: normal bowel sounds, soft. Absent: absent bowel sounds, decreased bowel sounds, distended, hepatomegaly, hyperactive bowel sounds, organomegaly, rigid, scaphoid, splenomegaly, tenderness, umbilical hernia, ventral hernia - Integumentary Integumentary: Absent: calor, cellulitis, cyanotic, decreased turgor, flushed, jaundiced, normal, normal turgor, pale, rash, ulcer - Neurologic Neurologic: Present: CNII-XII intact. Absent: focal deficits - Musculoskeletal Musculoskeletal: Present: generalized weakness - Psychiatric Psychiatric: Absent: A&O x's 3, intact judgment & insight - Additional findings Additional findings: confused, delerious - Labs CBC & Chem 7: 05/30/17 14:28 05/30/17 03:49 Labs: Abnormal Lab Results - Last 24 Hours (Table) 05/29/17 05/30/17 05/30/17 Range/Units 23:26 03:49 03:49 RBC 3.29 L 3.18 L (3.80-5.40) m/uL Hgb 10.5 L 10.0 L (11.4-16.0) gm/dL Hct 33.9 L 31.8 L (34.0-46.0) % MCV 103.2 H (80.0-100.0) fL RDW 18.6 H 19.4 H (11.5-15.5) % Plt Count 131 L 137 L (150-450) k/uL Lymphocytes # (1.0-4.8) k/uL Sodium 133 L (137-145) mmol/L Potassium 3.1 L (3.5-5.1) mmol/L Creatinine 0.30 L (0.52-1.04) mg/dL Calcium 8.1 L (8.4-10.2) mg/dL ALT 57 H (9-52) U/L Total Protein 4.8 L (6.3-8.2) g/dL Albumin 2.5 L (3.5-5.0) g/dL 05/30/17 05/30/17 05/30/17 Range/Units 07:08 11:28 14:28 RBC 3.02 L 3.09 L 3.05 L (3.80-5.40) m/uL Hgb 9.9 L 10.1 L 10.1 L (11.4-16.0) gm/dL Hct 30.5 L 30.7 L 30.2 L (34.0-46.0) % MCV 101.0 H (80.0-100.0) fL RDW 18.6 H 18.6 H 18.6 H (11.5-15.5) % Plt Count 127 L 120 L 138 L (150-450) k/uL Lymphocytes # 0.8 L 0.9 L (1.0-4.8) k/uL Sodium (137-145) mmol/L Potassium (3.5-5.1) mmol/L Creatinine (0.52-1.04) mg/dL Calcium (8.4-10.2) mg/dL ALT (9-52) U/L Total Protein (6.3-8.2) g/dL Albumin (3.5-5.0) g/dL Microbiology - Last 24 Hours (Table) 05/29/17 01:50 Urine Culture - Final Urine,Catheterized 05/28/17 23:53 Blood Culture - Preliminary Blood No Growth after 24 hours Assessment and Plan (1) Abdominal pain Narrative/Plan: no acute abdomen on exam GI consult Status: Acute (2) Anemia Status: Acute (3) Back pain Narrative/Plan: stable Status: Chronic (4) Fever Narrative/Plan: ? 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
[2017-05-30] MEDS ORDERED: POTASSIUM CHLORIDE ORAL LIQUID 40 MEQ/30 ML CUP PO ONE (20:00)
[2017-05-30 21:24] LABS: Anion Gap 9 mmol/L; Blood Urea Nitrogen 6 mg/dL (7-17); Calcium 8.3 mg/dL (8.4-10.2); Carbon Dioxide 25 mmol/L (22-30); Chloride 100 mmol/L (98-107); Glucose 91 mg/dL (74-99); Non-African American GFR(MDRD) >60 (>60 ml/min/1.73 sqM); Potassium 3.4 mmol/L (3.5-5.1); Sodium 134 mmol/L (137-145)
[2017-05-31] MEDS: oxyCODONE-APAP 7.5-325MG 1 EACH TAB PO SCH ×5 (01:06→21:28)
--- NOTE | 2017-05-31 01:29 | P.CONS ---
History of Present Illness - Reason for Consult Consult date: 05/31/17 rectal bleeding. metastatic small cell lung cancer - History of Present Illness The patient is a 57-year-old lady, well known to our service. She was diagnosed with small cell lung cancer in January 2016. She had metastatic disease at baseline, with metastasis to the liver And lymph nodes. She was treated with carboplatin and ER TECH-16 with response to the same. Patient did develop brain metastasis and underwent whole brain radiation. She progressed systemically in 04/19, and was treated with full dose Taxol. She was unable to tolerate that regimen. Repeat CT scan showed progression, in the brain as well as in the lung. She was started on weekly Taxol, and had her first treatment on 05/24/17 . she came into the emergency room, she had developed episodes of bright red blood per rectum, over the last 1-2 days. the patient had been complaining of marked constipation over the last several days. She was therefore admitted for further management. the patient is on anticoagulation for left upper extremity DVT, and that had been present at initial diagnosis. Review of Systems Constitutional: Reports fatigue, Reports poor appetite, Reports weakness Eyes: denies blurred vision, denies pain Ears: deny: decreased hearing, ear discharge, earache, tinnitus Ears, nose, mouth and throat: Denies headache, Denies sore throat Cardiovascular: Reports dyspnea on exertion, Reports palpitations Respiratory: Reports dyspnea Gastrointestinal: Denies abdominal pain, Denies diarrhea, Denies nausea, Denies vomiting Genitourinary: Denies dysuria, Denies hematuria Menstruation: Reports postmenopausal Musculoskeletal: Reports muscle weakness Integumentary: Denies pruritus, Denies rash Neurological: Reports memory loss, Reports weakness Psychiatric: Reports depression, Reports difficulty concentrating Endocrine: Reports as per HPI, Reports high blood sugars Hematologic/Lymphatic: Reports as per HPI Past Medical History Past Medical History: Asthma, Cancer, Chest Pain / Angina, COPD, Deep Vein Thrombosis (DVT), Hearing Disorder / Deafness, Hyperlipidemia Additional Past Medical History / Comment(s): astigmatism, tube in left ear per pt's spouse pt has small cell ca- lung,lymph node,liver. pt stated had chemo last ,wed, th not due for next tx for 2 weeks .home 02 1.5 ltiers n/c. appetite down tries to eat 2 meals a day and drinks 3 ensure a day History of Any Multi-Drug Resistant Organisms: None Reported Past Surgical History: Ear Surgery, Hysterectomy Additional Past Surgical History / Comment(s): partial hysterectomy, bronchoscopy, medi port rt chest, LASIK SURGERY BILATERAL EYES Past Anesthesia/Blood Transfusion Reactions: No Reported Reaction Past Psychological History: Anxiety Smoking Status: Former smoker Past Alcohol Use History: None Reported Past Drug Use History: None Reported - Past Family History Mother Family Medical History: Cancer Additional Family Medical History / Comment(s): lung and bronchial cancer, Sister(s) History Unknown: Yes Family Medical History: Deep Vein Thrombosis (DVT) Additional Family Medical History / Comment(s): factor 5 disorder Father Family Medical History: No Reported History Additional Family Medical History / Comment(s): Father is healthy and is 78yrs old. Medications and Allergies Home Medications Medication Instructions Recorded Confirmed Type Albuterol Nebulized [Ventolin 2.5 mg INHALATION RT-Q4H PRN 01/02/16 05/29/17 History Nebulized] Famotidine [Pepcid] 20 mg PO BID@0800,1600 01/18/16 05/29/17 History Atorvastatin [Lipitor] 20 mg PO HS@199902/26/16 05/29/17 History Dronabinol [Marinol] 5 mg PO BID@0800,1600 02/26/16 05/29/17 History Rivaroxaban [Xarelto] 20 mg PO HS 02/26/16 05/29/17 History ALPRAZolam [Xanax] 0.25 mg PO BID PRN 05/28/17 05/29/17 History ALPRAZolam [Xanax] 0.25 mg PO HS@199905/28/17 05/29/17 History Albuterol Inhaler [Ventolin Hfa 2 puff INHALATION RT-Q4H PRN 05/28/17 05/29/17 History Inhaler] Bisacodyl [Dulcolax] 5 mg PO QAM 05/28/17 05/29/17 History Dexamethasone [Hexadrol] See Taper PO DAILY 05/28/17 05/29/17 History Docusate [Colace] 100 mg PO HS 05/28/17 05/29/17 History Magic Mouth Wash 5 ml PO QID PRN 05/28/17 05/29/17 History Nystatin 100,000 Unit/ml Susp 500,000 unit PO QID PRN 05/28/17 05/29/17 History [Mycostatin Oral Susp] Ondansetron [Zofran] 4 mg PO Q4H PRN 05/28/17 05/29/17 History Sucralfate [Carafate] 1 gm PO QID 05/28/17 05/29/17 History levETIRAcetam [Keppra] 1,000 mg PO BID 05/28/17 05/29/17 History oxyCODONE HCL 20 mg PO BID@0800,199905/28/17 05/29/17 History oxyCODONE-APAP 7.5-325MG [Percocet 1 tab PO Q4H PRN 05/28/17 05/29/17 History 7.5-325 mg] oxyCODONE-APAP 7.5-325MG [Percocet 1 tab PO QID PRN 05/28/17 05/29/17 History 7.5-325 mg] Metoclopramide [Reglan] 10 mg PO TID@0800,1599,199905/29/17 05/29/17 History Allergies Allergy/AdvReac Type Severity Reaction Status Date / Time codeine Allergy Rash/Hives Verified 05/28/17 23:39 Sulfa (Sulfonamide Allergy Rash/Hives Verified 05/28/17 23:39 Antibiotics) tetracycline Allergy Rash/Hives Verified 05/28/17 23:39 Physical Exam Vitals: Vital Signs Temp Pulse Pulse Resp BP BP Pulse Ox 05/30/17 22:49 96.7 F L 111 H 16 107/60 96 05/30/17 19:19 112 H 05/30/17 18:23 113 H 22 117/64 99 05/30/17 15:23 120 H 05/30/17 15:18 112 H 05/30/17 15:05 97.7 F 116 H 22 113/63 95 05/30/17 10:29 112 H 05/30/17 07:21 100 05/30/17 07:11 106 H 96 05/30/17 07:00 98.6 F 112 H 22 109/55 96 Intake and Output 05/30/17 05/30/17 05/31/17 14:59 22:59 06:59 Intake Total 1430 590 Balance 1430 590 Intake: Intake, IV Titration 950 Amount Levofloxacin 750Mg-D5w 150 Pmx 750 mg In Dextrose/ Water 1 150ml.bag @ 100 mls/hr IVPB Q24H [facility] Rx#: [id number] Sodium Chloride 0.9% 1, 800 000 ml @ 100 mls/hr IV . Q10H [facility] Rx#:[id number] Oral 480 590 Other: Voiding Method Indwelling Catheter Indwelling Catheter - Constitutional General appearance: no acute distress - EENT Eyes: EOMI, PERRLA ENT: hearing grossly normal, normal oropharynx - Neck Neck: no lymphadenopathy - Respiratory Respiratory: bilateral: CTA - Cardiovascular Rhythm: regular Heart sounds: normal: S1, S2 - Gastrointestinal General gastrointestinal: normal bowel sounds, soft - Integumentary Integumentary: normal - Neurologic Neurologic: CNII-XII intact - Musculoskeletal Musculoskeletal: generalized weakness, strength equal bilaterally - Psychiatric diminished recall Results CBC & Chem 7: 05/30/17 14:28 05/30/17 20:53 Labs: Abnormal Lab Results - Last 24 Hours (Table) 05/29/17 05/30/17 05/30/17 Range/Units 23:26 03:49 03:49 RBC 3.29 L 3.18 L (3.80-5.40) m/uL Hgb 10.5 L 10.0 L (11.4-16.0) gm/dL Hct 33.9 L 31.8 L (34.0-46.0) % MCV 103.2 H (80.0-100.0) fL RDW 18.6 H 19.4 H (11.5-15.5) % Plt Count 131 L 137 L (150-450) k/uL Lymphocytes # (1.0-4.8) k/uL Sodium 133 L (137-145) mmol/L Potassium 3.1 L (3.5-5.1) mmol/L BUN (7-17) mg/dL Creatinine 0.30 L (0.52-1.04) mg/dL Calcium 8.1 L (8.4-10.2) mg/dL ALT 57 H (9-52) U/L Total Protein 4.8 L (6.3-8.2) g/dL Albumin 2.5 L (3.5-5.0) g/dL 0905/30/17 05/30/17 Range/Units 07:08 11:28 14:28 RBC 3.02 L 3.09 L 3.05 L (3.80-5.40) m/uL Hgb 9.9 L 10.1 L 10.1 L (11.4-16.0) gm/dL Hct 30.5 L 30.7 L 30.2 L (34.0-46.0) % MCV 101.0 H (80.0-100.0) fL RDW 18.6 H 18.6 H 18.6 H (11.5-15.5) % Plt Count 127 L 120 L 138 L (150-450) k/uL Lymphocytes # 0.8 L 0.9 L (1.0-4.8) k/uL Sodium (137-145) mmol/L Potassium (3.5-5.1) mmol/L BUN (7-17) mg/dL Creatinine (0.52-1.04) mg/dL Calcium (8.4-10.2) mg/dL ALT (9-52) U/L Total Protein (6.3-8.2) g/dL Albumin (3.5-5.0) g/dL 05/30/17 Range/Units 20:53 RBC (3.80-5.40) m/uL Hgb (11.4-16.0) gm/dL Hct (34.0-46.0) % MCV (80.0-100.0) fL RDW (11.5-15.5) % Plt Count (150-450) k/uL Lymphocytes # (1.0-4.8) k/uL Sodium 134 L (137-145) mmol/L Potassium 3.4 L (3.5-5.1) mmol/L BUN 6 L (7-17) mg/dL Creatinine 0.34 L (0.52-1.04) mg/dL Calcium 8.3 L (8.4-10.2) mg/dL ALT (9-52) U/L Total Protein (6.3-8.2) g/dL Albumin (3.5-5.0) g/dL Microbiology - Last 24 Hours (Table) 05/29/17 01:50 Urine Culture - Final Urine,Catheterized 05/28/17 23:53 Blood Culture - Preliminary Blood No Growth after 24 hours Chest x-ray: report reviewed CT scan - abdomen: report reviewed CT scan - pelvis: report reviewed Assessment and Plan (1) Rectal bleeding Narrative/Plan: the patient was admitted with the same. This appears to have stopped. Patient has been evaluated by gastroenterology, and the case was discussed with them. It was felt that the patient likely had minor bleeding, due to local GI irritation and trauma, from severe constipation. she had had a negative colonoscopy about 6 months ago. Therefore at this time there was no plans on the part of GI, repeated colonoscopy. Patient has been placed on appropriate medications for constipation. Her hemoglobin did not drop by significant amount. Mild drop noted can be explained by IV hydration, as well as recent c hemotherapy. thus according to GI, it was felt that the patient had satisfactory bowel movements without recurrence of bleeding, anticoagulation could be resumed on 05/31/17. Status: Acute (2) Metastatic lung cancer (metastasis from lung to other site) Narrative/Plan: the patient was noted to have recent progression, including in the brain. Performance status is poor and prognosis quite guarded. She has been started on salvage chemotherapy with weekly Taxol . she appears to have tolerated the chemotherapy itself well so far. This will be resumed in the outpatient setting Status: Acute (3) Anemia Narrative/Plan: the drop from baseline is not very significant and can be explained by hydration and recent chemotherapy. Hemoglobin is in a safe range and does not require transfusion. Continue to monitor with supplementation as needed Status: Acute
[2017-05-31 07:44] LABS: Anisocytosis Slight; Basophils % (A) 0 %; CH 32.3; CHCM 32.2; Eosinophils # (A) 0.1 k/uL (0-0.7); Eosinophils % (A) 1 %; HCT 30.6 % (34.0-46.0); HDW 3.33; HGB 9.7 gm/dL (11.4-16.0); Hypochromasia Slight; Luc # (Auto) 0.11; Luc % (Auto) 2; Lymphocytes # (A) 0.9 k/uL (1.0-4.8); Lymphocytes % (A) 18 %; MCH 31.9 pg (25.0-35.0); MCHC 31.7 g/dL (31.0-37.0); MCV 100.6 fL (80.0-100.0); Macrocytosis Moderate; Mean Platelet Volume 7.5; Monocytes # (A) 0.2 k/uL (0-1.0); Monocytes % (A) 3 %; Neutrophils # (A) 3.7 k/uL (1.3-7.7); Neutrophils % (A) 75 %; RBC 3.04 m/uL (3.80-5.40); RDW 18.5 % (11.5-15.5); WBC 4.9 k/uL (3.8-10.6); WBC (Perox) 4.86
[2017-05-31] MEDS: ALBUTEROL NEBULIZED 2.5 MG/3 ML INHALATION PRN ×2 (08:06→15:56)
[2017-05-31 08:13] LABS: Anion Gap 9 mmol/L; Blood Urea Nitrogen 7 mg/dL (7-17); Calcium 8.3 mg/dL (8.4-10.2); Carbon Dioxide 26 mmol/L (22-30); Chloride 101 mmol/L (98-107); Glucose 79 mg/dL (74-99); Non-African American GFR(MDRD) >60 (>60 ml/min/1.73 sqM); Sodium 136 mmol/L (137-145)
[2017-05-31] MEDS: SODIUM CHLORIDE 0.9% 1,000 ML IV SCH ×2 (09:36→20:23)
[2017-05-31] MEDS: LEVOFLOXACIN 750MG-D5W PMX 750 MG in DEXTROSE/WATER 1 150ML.BAG IVPB SCH (09:37)
[2017-05-31] MEDS: levETIRAcetam 500 MG TAB PO SCH ×2 (09:44→20:23)
[2017-05-31] MEDS: PANTOPRAZOLE 40 MG/10 ML VIAL IV SCH (09:45)
[2017-05-31] MEDS: POLYETHYLENE GLYCOL 3350 17 GM POWD.PACK PO SCH ×2 (09:45→20:24)
[2017-05-31] MEDS: SENNOSIDES-DOCUSATE SODIUM 1 EACH TAB PO SCH ×3 (09:45→20:24)
[2017-05-31] MEDS: SUCRALFATE 1 GM TAB PO SCH ×4 (09:46→21:29)
--- NOTE | 2017-05-31 09:53 | P.PN ---
Subjective Principal diagnosis: Rectal bleeding No bleeding. Passing flatus. Denies abdominal pain. Reports fatigue this morning. Hemoglobin 9.7. Daughter at bedside and reports mother has not had a bowel movement for more than a week and with her history of brain metastasis her memory is poor. Additionally daughter reports she has not had a colonoscopy recently as previously provided on admission. Last colonoscopy could've been more than a few years ago daughter is contacting primary's office for additional information. Patient and family requesting conservative measures. Objective - Vital Signs Vital signs: Vital Signs Temp 97.8 F 05/31/17 07:20 Pulse 120 H 05/31/17 08:18 Resp 19 05/31/17 07:20 BP 134/70 05/31/17 07:20 Pulse Ox 97 05/31/17 07:20 Intake & Output 05/30/17 05/31/17 05/31/17 18:59 06:59 18:59 Intake Total 1430 590 Output Total 1300 Balance 1430 -710 Intake: Intake, IV Titration 950 Amount Levofloxacin 750Mg-D5w 150 Pmx 750 mg In Dextrose/ Water 1 150ml.bag @ 100 mls/hr IVPB Q24H [facility] Rx#: [id number] Sodium Chloride 0.9% 1, 800 000 ml @ 100 mls/hr IV . Q10H [facility] Rx#:[id number] Oral 480 590 Output: Urine 1300 Other: Voiding Method Indwelling Catheter Indwelling Catheter - Exam General appearance: The patient is alert, oriented, in no acute distress. HET: Head is normocephalic and atraumatic. Pupils are equal and reactive. Oropharynx is clear without lesions. Neck: Supple without lymphadenopathy. Trachea midline. Heart: S1 S2. Regular rate and rhythm. Lungs: No crackles or wheezes are heard. Abdomen: Soft, nontender, nondistended with bowel sounds. No peritoneal signs. No palpable organomegaly or masses. Extremities: Normal skin color and turgor. No cyanosis, rash, ulceration, clubbing, or edema. Radial and pedal pulses are 2/4 bilaterally. Neurological: No focal deficits. Strength and sensation are grossly intact. - Labs CBC & Chem 7: 05/31/17 07:35 05/31/17 07:35 Labs: Abnormal Lab Results - Last 24 Hours (Table) 05/30/17 05/30/17 05/30/17 Range/Units 07:08 11:28 14:28 RBC 3.02 L 3.09 L 3.05 L (3.80-5.40) m/uL Hgb 9.9 L 10.1 L 10.1 L (11.4-16.0) gm/dL Hct 30.5 L 30.7 L 30.2 L (34.0-46.0) % MCV 101.0 H (80.0-100.0) fL RDW 18.6 H 18.6 H 18.6 H (11.5-15.5) % Plt Count 127 L 120 L 138 L (150-450) k/uL Lymphocytes # 0.8 L 0.9 L (1.0-4.8) k/uL Sodium (137-145) mmol/L Potassium (3.5-5.1) mmol/L BUN (7-17) mg/dL Creatinine (0.52-1.04) mg/dL Calcium (8.4-10.2) mg/dL 05/30/17 05/31/17 05/31/17 Range/Units 20:53 07:35 07:35 RBC 3.04 L (3.80-5.40) m/uL Hgb 9.7 L (11.4-16.0) gm/dL Hct 30.6 L (34.0-46.0) % MCV 100.6 H (80.0-100.0) fL RDW 18.5 H (11.5-15.5) % Plt Count 137 L (150-450) k/uL Lymphocytes # 0.9 L (1.0-4.8) k/uL Sodium 134 L 136 L (137-145) mmol/L Potassium 3.4 L 3.0 L* (3.5-5.1) mmol/L BUN 6 L (7-17) mg/dL Creatinine 0.34 L 0.35 L (0.52-1.04) mg/dL Calcium 8.3 L 8.3 L (8.4-10.2) mg/dL Microbiology - Last 24 Hours (Table) 05/28/17 23:53 Blood Culture - Preliminary Blood No Growth after 48 hours 05/29/17 01:50 Urine Culture - Final Urine,Catheterized Assessment and Plan (1) Rectal bleeding Narrative/Plan: Possible exacerbated by anticoagulation from heavy stool burden constipation. Suspect perianal pathology. Ischemic pathology cannot be entirely excluded. Status: Acute (2) Metastatic lung cancer (metastasis from lung to other site) Status: Chronic Plan: 1. Stool softeners and adjusted. Fleet enema 1. Soft diet as tolerated. Supportive measures. CBC monitoring. Conservative measures. Endoscopic exams not planned at this time. Discharge per medicine/oncology. Assessment and plan of care discussed with Dr. Barrera.
[2017-05-31] MEDS ORDERED: NA PHOS,M-B/NA PHOS,DI-BA 133 ML ENEMA RECTAL ONE (10:00)
[2017-05-31] MEDS ORDERED: POTASSIUM CHLORIDE ORAL LIQUID 40 MEQ/30 ML CUP PO ONE ×2 (10:29→14:30)
[2017-05-31] MEDS ORDERED: FLUCONAZOLE 150 MG TAB PO STA (16:07)
--- NOTE | 2017-05-31 16:32 | P.PN ---
Subjective Principal diagnosis: small cell lung cancer and abnormal chest x-ray and CT of the chest. This is a 57-year-old female with history of small cell lung cancer, patient was diagnosed back in January of 2016, and the diagnosis was made by Dr. Arana, patient underwent bronchoscopy and paratracheal lymph node aspiration. 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 Underwent radiation treatment to the brain, and all along she continued to have abnormal CT of the chest and abnormal chest x-ray showing a masslike consolidation in the superior segment of the left lower lobe with cavitation, and there was also air fluid level at the left lung apex. In spite of the findings, the patient does not have symptoms to suggest ongoing infection although she does have occasional cough with purulent sputum. No fever, no chills, no hemoptysis. Patient is still under the care of Dr. Ortiz, and she is still receiving chemotherapy. This time, the patient presented with one- week history of lower abdominal pain and rectal bleeding. She did have previous history of rectal bleeding however it resolved without any major intervention. In addition to the rectal bleeding, the patient was noted to have fever with a temp of 101.3, and again the chest x-ray showing obese abnormalities in the left lung with cavitation and possible hydropneumothorax, this consult was initiated. Patient was seen by GI on consultation, and at this point her rectal bleeding resolved without any intervention. Advised to be placed on stool softeners mostly. As far as the CT of the chest and chest x- ray are concerned, I have reviewed previous x-rays and scans of the chest going back to January of 2016, last CT of the chest showed cavitary lesion in the left upper lobe and mixed density with air and air fluid levels present. The area has enlarged to approximately 6.59.38.5 cm in size extending to the hilar region with encasement of the left pulmonary artery as well as branches. There is also a large amount of fluid density present within the cavity with air- fluid level extending towards the mediastinum at the thoracic inlet level. There is also mediastinal adenopathy in the retrocaval and pretracheal as well as subcarinal locations. All in all this is basically pointing to worsening small cell lung cancer and possible underlying infection is not entirely ruled out. Surprisingly, the patient does not seem to be as symptomatic as she should be compared to the findings noted on the CT of the chest and chest x- ray. On 05/31/2017patient is seen sitting up in bed in no acute distress. She denies any further rectal bleeding or abdominal pain.Today's hemoglobin is 9.7.hemodynamically stable, although continues to be tachycardic in the range of 110-120. She denies any chest congestion, wheezing, shortness of breath. On 2 L oxygen per nasal cannula with sats around 95%. No febrile episodes through the night. Respirations are even and nonlabored. No wheezes, no rhonchi or rales noted.blood culture showed no growth after 48 hours, urine cultures negative. Patient's rectal bleeding is thought to be related to constipation and anticoagulation in the form of Xarelto. Endoscopic exams are not planned at this time.From pulmonary standpoint patient will continue on empiric antibioticsin the form of Levaquin and DuoNeb nebulized treatments. Objective - Vital Signs Vital signs: Vital Signs Temp 97.8 F 05/31/17 07:20 Pulse 120 H 05/31/17 08:18 Resp 19 05/31/17 07:20 BP 134/70 05/31/17 07:20 Pulse Ox 97 05/31/17 07:20 Intake & Output 05/30/17 05/31/17 05/31/17 18:59 06:59 18:59 Intake Total 1430 590 Output Total 1300 Balance 1430 -710 Intake: Intake, IV Titration 950 Amount Levofloxacin 750Mg-D5w 150 Pmx 750 mg In Dextrose/ Water 1 150ml.bag @ 100 mls/hr IVPB Q24H [facility] Rx#: [id number] Sodium Chloride 0.9% 1, 800 000 ml @ 100 mls/hr IV . Q10H [facility] Rx#:[id number] Oral 480 590 Output: Urine 1300 Other: Voiding Method Indwelling Catheter Indwelling Catheter Indwelling Catheter - Exam General appearance: Physical examination revealed a 57-year-old female, cushingoid looking, obese, in no form of respiratory distress. Head: Cushingoid looking. Hair is absent Pupils are equal and reactive. Hair thin distribution balding. Oropharynx is clear without lesions. Neck: Supple without lymphadenopathy. Evidence of supraclavicular fullness and fat noted. Heart: Normal S1 and S2, no gallops. Lungs: Diminished breath sound bilaterally, no wheezing on forced expiratory maneuver was noted. Abdomen: Soft, nontender, nondistended with bowel sounds. No peritoneal signs. No palpable organomegaly or masses. Extremities: No clubbing, no edema, no cyanosis. Radial and pedal pulses are 2/ 4 bilaterally. Neurological: No focal deficits. Strength and sensation are grossly intact. Skin: Normal skin turgor, No evidence of rashes. And no ulcerations. - Labs CBC & Chem 7: 05/31/17 07:35 05/31/17 07:35 Labs: Abnormal Lab Results - Last 24 Hours (Table) 05/30/17 05/30/17 05/30/17 Range/Units 11:28 14:28 20:53 RBC 3.09 L 3.05 L (3.80-5.40) m/uL Hgb 10.1 L 10.1 L (11.4-16.0) gm/dL Hct 30.7 L 30.2 L (34.0-46.0) % MCV (80.0-100.0) fL RDW 18.6 H 18.6 H (11.5-15.5) % Plt Count 120 L 138 L (150-450) k/uL Lymphocytes # 0.8 L 0.9 L (1.0-4.8) k/uL Sodium 134 L (137-145) mmol/L Potassium 3.4 L (3.5-5.1) mmol/L BUN 6 L (7-17) mg/dL Creatinine 0.34 L (0.52-1.04) mg/dL Calcium 8.3 L (8.4-10.2) mg/dL 05/31/17 05/31/17 Range/Units 07:35 07:35 RBC 3.04 L (3.80-5.40) m/uL Hgb 9.7 L (11.4-16.0) gm/dL Hct 30.6 L (34.0-46.0) % MCV 100.6 H (80.0-100.0) fL RDW 18.5 H (11.5-15.5) % Plt Count 137 L (150-450) k/uL Lymphocytes # 0.9 L (1.0-4.8) k/uL Sodium 136 L (137-145) mmol/L Potassium 3.0 L* (3.5-5.1) mmol/L BUN (7-17) mg/dL Creatinine 0.35 L (0.52-1.04) mg/dL Calcium 8.3 L (8.4-10.2) mg/dL Microbiology - Last 24 Hours (Table) 05/28/17 23:53 Blood Culture - Preliminary Blood No Growth after 48 hours 05/29/17 01:50 Urine Culture - Final Urine,Catheterized Assessment and Plan Plan: Assessment and Plan Plan: Impression: 1 acute rectal bleeding, likely related to constipation, resolved. May have been worsened with the fact that the patient is on Xarelto. 2 cavitary lung mass, secondary to advanced small cell lung cancer with large tumor involving the left midlung. The tumor itself seems to be cavitating, underlying infection is not entirely ruled out, however the patient is not the most ideal candidate for bronchoscopy, at this point I would recommend antibiotics orally on a long-term basis upon discharge. And follow-up on outpatient basis. 3 hydropneumothorax involving the left lung possibility of lung abscess or infected bulla in the left upper lobe is likely. Hence antibiotics would be appropriate, patient would not benefit from any intervention at this point. 4 metastatic small cell lung cancer involving lungs, liver, and brain. Recommendation: Continue present treatment plan, patient may be discharged home on 3 week long course of oral antibiotics. No plans for bronchoscopy at this time as it would not change the treatment. Prognosis is guarded and poor. I performed a history & physical examination of the patient and discussed their management with my nurse practitioner, Hazel Jackson. I reviewed the nurse practitioner's note and agree with the documented findings and plan of care.
[2017-05-31] MEDS: CLINDAMYCIN 600 MG in DEXTROSE 5% IN WATER 50 ML IVPB SCH ×4 (17:54→23:25)
[2017-05-31] MEDS: NYSTATIN 100,000 UNIT/ML SUSP 500,000 UNIT/5 ML CUP PO SCH ×2 (17:55→21:29)
[2017-05-31] MEDS: DRONABINOL 2.5 MG CAP PO SCH (17:55)
--- NOTE | 2017-05-31 18:26 | P.PN ---
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 The patient last chemotherapy was last week. She does report being on chronic pain medications and has difficulty moving her bowels despite taking Dulcolax. The patient apparently presented with her daughter reports that the patient has been confused recently as well, she reports shortness of breath with appears to be chronic. Admission she had routine labs she was noted to have a leukocytosis of 11.1, and a low-grade fever of 101.3. CT abdomen and pelvis indicating progressive metastatic disease a pelvic mass suggestive of ovarian teratoma and a large amount of stool in the colon indicating diarrhea versus constipation CXR showed a large xcavitary L lesion No reported rec rectal bleed by nurse staff The patient is today for awake and responsive she denied any active abdominal pain or chest pain or shortness of breath Pulmonary consult appreciated for cavitary lesion and left lung representing small cell carcinoma and considered not a good candidate for bronchoscopy GI consult appreciated and no need for any endoscopic procedure at this time A hospital bed ordered and recommended palliative care consult and she'll be discharged tomorrow Potassium was otherwise corrected with supplements Objective - Vital Signs Vital signs: Vital Signs Temp 97.3 F L 05/31/17 15:00 Pulse 110 H 05/31/17 16:11 Resp 16 05/31/17 15:00 BP 97/65 05/31/17 15:00 Pulse Ox 97 05/31/17 15:00 Intake & Output 05/30/17 05/31/17 05/31/17 18:59 06:59 18:59 Intake Total 1430 590 950 Output Total 1300 Balance 1430 -710 950 Intake: IV 800 Sodium Chloride 0.9% 1, 800 000 ml @ 100 mls/hr IV . Q10H [facility] Rx#:[id number] Intake, IV Titration 950 150 Amount Levofloxacin 750Mg-D5w 150 150 Pmx 750 mg In Dextrose/ Water 1 150ml.bag @ 100 mls/hr IVPB Q24H [facility] Rx#: [id number] Sodium Chloride 0.9% 1, 800 000 ml @ 100 mls/hr IV . Q10H [facility] Rx#:[id number] Oral 480 590 Output: Urine 1300 Other: Voiding Method Indwelling Catheter Indwelling Catheter Indwelling Catheter - Constitutional General appearance: Present: cooperative, no acute distress, obese - EENT Eyes: Present: anicteric sclerae, EOMI, PERRLA ENT: Present: hearing grossly normal, NA/AT, normal oropharynx, thrush Ears: bilateral: normal - Neck Carotids: bilateral: upstroke normal, bruit absent Thyroid: negative: normal size, enlarged, firm, nodule - Respiratory Respiratory: bilateral: CTA, negative: diminished, dullness, rales, rhonchi, wheezing, prolonged expiration - Cardiovascular Rhythm: regular Heart sounds: normal: S1, S2 Abnormal Heart Sounds: Absent: systolic murmur, diastolic murmur, rub, S3 Gallop , S4 Gallop, click, other - Gastrointestinal General gastrointestinal: Present: normal bowel sounds, scaphoid, soft. Absent : absent bowel sounds, decreased bowel sounds, distended, hepatomegaly, hyperactive bowel sounds, organomegaly, rigid, splenomegaly, tenderness, umbilical hernia, ventral hernia - Integumentary Integumentary: Absent: calor, cellulitis, cyanotic, decreased turgor, flushed, jaundiced, normal, normal turgor, pale, rash, ulcer - Neurologic Neurologic: Present: CNII-XII intact, focal deficits - Musculoskeletal Musculoskeletal: Present: gait normal, strength equal bilaterally. Absent: generalized weakness, right sided weakness, left sided weakness - Psychiatric Psychiatric: Present: A&O x's 3, appropriate affect, intact judgment & insight - Allied health notes Allied health notes reviewed: nursing - Labs CBC & Chem 7: 05/31/17 07:35 05/31/17 07:35 Labs: Abnormal Lab Results - Last 24 Hours (Table) 05/30/17 05/31/17 05/31/17 Range/Units 20:53 07:35 07:35 RBC 3.04 L (3.80-5.40) m/uL Hgb 9.7 L (11.4-16.0) gm/dL Hct 30.6 L (34.0-46.0) % MCV 100.6 H (80.0-100.0) fL RDW 18.5 H (11.5-15.5) % Plt Count 137 L (150-450) k/uL Lymphocytes # 0.9 L (1.0-4.8) k/uL Sodium 134 L 136 L (137-145) mmol/L Potassium 3.4 L 3.0 L* (3.5-5.1) mmol/L BUN 6 L (7-17) mg/dL Creatinine 0.34 L 0.35 L (0.52-1.04) mg/dL Calcium 8.3 L 8.3 L (8.4-10.2) mg/dL Microbiology - Last 24 Hours (Table) 05/28/17 23:53 Blood Culture - Preliminary Blood No Growth after 48 hours Assessment and Plan (1) Abdominal pain Narrative/Plan: no acute abdomen on exam GI consult : related it to constipation GIVEN AN eNEMA No endoscopic procedures planned Status: Acute (2) Anemia Narrative/Plan: Stable GI consult appreciated Status: Acute (3) Back pain Narrative/Plan: stable Status: Chronic (4) Fever Narrative/Plan: ? 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
[2017-05-31 20:32] LABS: Anisocytosis Slight; CH 32.3; CHCM 31.8; HCT 29.2 % (34.0-46.0); HDW 3.33; HGB 9.2 gm/dL (11.4-16.0); Hypochromasia Slight; MCHC 31.4 g/dL (31.0-37.0); MCV 101.9 fL (80.0-100.0); Macrocytosis Moderate; RBC 2.87 m/uL (3.80-5.40); RDW 18.6 % (11.5-15.5); WBC 4.7 k/uL (3.8-10.6)
[2017-06-01] MEDS: SODIUM CHLORIDE 0.9% 1,000 ML IV SCH ×3 (00:07→20:45)
[2017-06-01 06:10] LABS: Anisocytosis Slight; CH 32.6; CHCM 32.5; HDW 3.35; HGB 8.7 gm/dL (11.4-16.0); Hypochromasia Slight; MCH 32.4 pg (25.0-35.0); MCHC 32.1 g/dL (31.0-37.0); MCV 100.9 fL (80.0-100.0); Macrocytosis Moderate; Mean Platelet Volume 7.7; RBC 2.67 m/uL (3.80-5.40); RDW 19.2 % (11.5-15.5); WBC 3.9 k/uL (3.8-10.6)
[2017-06-01 06:23] LABS: Anion Gap 7 mmol/L; Blood Urea Nitrogen 5 mg/dL (7-17); Carbon Dioxide 27 mmol/L (22-30); Chloride 103 mmol/L (98-107); Glucose 81 mg/dL (74-99); Non-African American GFR(MDRD) >60 (>60 ml/min/1.73 sqM); Potassium 3.1 mmol/L (3.5-5.1); Sodium 137 mmol/L (137-145)
[2017-06-01] MEDS: DRONABINOL 2.5 MG CAP PO SCH ×2 (09:03→17:55)
[2017-06-01] MEDS: CLINDAMYCIN 600 MG in DEXTROSE 5% IN WATER 50 ML IVPB SCH ×6 (09:04→23:10)
[2017-06-01] MEDS: LEVOFLOXACIN 750 MG TAB PO SCH (09:05)
[2017-06-01] MEDS: levETIRAcetam 500 MG TAB PO SCH ×2 (09:05→20:28)
[2017-06-01] MEDS: NYSTATIN 100,000 UNIT/ML SUSP 500,000 UNIT/5 ML CUP PO SCH ×4 (09:06→21:59)
[2017-06-01] MEDS: oxyCODONE-APAP 7.5-325MG 1 EACH TAB PO SCH ×4 (09:08→22:57)
[2017-06-01] MEDS: PANTOPRAZOLE 40 MG/10 ML VIAL IV SCH (09:08)
[2017-06-01] MEDS: SENNOSIDES-DOCUSATE SODIUM 1 EACH TAB PO SCH ×2 (09:09→20:31)
[2017-06-01] MEDS: POLYETHYLENE GLYCOL 3350 17 GM POWD.PACK PO SCH ×2 (09:09→20:29)
[2017-06-01] MEDS: SUCRALFATE 1 GM TAB PO SCH ×4 (09:10→21:59)
[2017-06-01] MEDS: oxyCODONE-APAP 7.5-325MG 1 EACH TAB PO PRN (15:06)
[2017-06-01] MEDS ORDERED: POTASSIUM CHLORIDE ER 20 MEQ TAB.ER PO STA (15:47)
--- NOTE | 2017-06-01 16:46 | P.PN ---
Subjective Principal diagnosis: small cell lung cancer and abnormal chest x-ray and CT of the chest. This is a 57-year-old female with history of small cell lung cancer, patient was diagnosed back in January of 2016, and the diagnosis was made by Dr. Arana, patient underwent bronchoscopy and paratracheal lymph node aspiration. 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 Underwent radiation treatment to the brain, and all along she continued to have abnormal CT of the chest and abnormal chest x-ray showing a masslike consolidation in the superior segment of the left lower lobe with cavitation, and there was also air fluid level at the left lung apex. In spite of the findings, the patient does not have symptoms to suggest ongoing infection although she does have occasional cough with purulent sputum. No fever, no chills, no hemoptysis. Patient is still under the care of Dr. Ortiz, and she is still receiving chemotherapy. This time, the patient presented with one- week history of lower abdominal pain and rectal bleeding. She did have previous history of rectal bleeding however it resolved without any major intervention. In addition to the rectal bleeding, the patient was noted to have fever with a temp of 101.3, and again the chest x-ray showing obese abnormalities in the left lung with cavitation and possible hydropneumothorax, this consult was initiated. Patient was seen by GI on consultation, and at this point her rectal bleeding resolved without any intervention. Advised to be placed on stool softeners mostly. As far as the CT of the chest and chest x- ray are concerned, I have reviewed previous x-rays and scans of the chest going back to January of 2016, last CT of the chest showed cavitary lesion in the left upper lobe and mixed density with air and air fluid levels present. The area has enlarged to approximately 6.59.38.5 cm in size extending to the hilar region with encasement of the left pulmonary artery as well as branches. There is also a large amount of fluid density present within the cavity with air- fluid level extending towards the mediastinum at the thoracic inlet level. There is also mediastinal adenopathy in the retrocaval and pretracheal as well as subcarinal locations. All in all this is basically pointing to worsening small cell lung cancer and possible underlying infection is not entirely ruled out. Surprisingly, the patient does not seem to be as symptomatic as she should be compared to the findings noted on the CT of the chest and chest x- ray. On 05/31/2017patient is seen sitting up in bed in no acute distress. She denies any further rectal bleeding or abdominal pain.Today's hemoglobin is 9.7.hemodynamically stable, although continues to be tachycardic in the range of 110-120. She denies any chest congestion, wheezing, shortness of breath. On 2 L oxygen per nasal cannula with sats around 95%. No febrile episodes through the night. Respirations are even and nonlabored. No wheezes, no rhonchi or rales noted.blood culture showed no growth after 48 hours, urine cultures negative. Patient's rectal bleeding is thought to be related to constipation and anticoagulation in the form of Xarelto. Endoscopic exams are not planned at this time.From pulmonary standpoint patient will continue on empiric antibioticsin the form of Levaquin and DuoNeb nebulized treatments. On 06/01/2017 patient continues with no significant respiratory distress. No new episodes of rectal bleeding or abdominal pain. Vital signs are stable. She denies any wheezing, chills or shortness of breath. No fevers, hemodynamically stable. Hemoglobin is 8.7 today but no signs of acute blood loss. She continues on 2 L oxygen per nasal cannula with saturations at 97%. She will continue on IV clindamycin Levaquin. DuoNeb nebulizer treatments. Microbiology results have been reviewed and are negative so far. Objective - Vital Signs Vital signs: Vital Signs Temp 99.4 F 06/01/17 15:00 Pulse 116 H 06/01/17 15:00 Resp 20 06/01/17 15:00 BP 98/55 06/01/17 15:00 Pulse Ox 97 06/01/17 16:11 Intake & Output 05/31/17 06/01/17 06/01/17 18:59 06:59 18:59 Intake Total 950 1740 850 Balance 950 1740 850 Weight 75.296 kg Intake: IV 800 1200 800 Sodium Chloride 0.9% 1, 800 1200 800 000 ml @ 100 mls/hr IV . Q10H [facility] Rx#:[id number] Intake, IV Titration 150 50 Amount Clindamycin 600 mg In 50 Dextrose 5% in Water 50 ml @ 100 mls/hr IVPB Q8HR [facility] Rx#:[id number] Levofloxacin 750Mg-D5w 150 Pmx 750 mg In Dextrose/ Water 1 150ml.bag @ 100 mls/hr IVPB Q24H [facility] Rx#: [id number] Oral 540 Other: Voiding Method Indwelling Catheter Diaper Diaper Incontinent Incontinent # Voids 1 # Bowel Movements 1 - Exam General appearance: Physical examination revealed a 57-year-old female, cushingoid looking, obese, in no form of respiratory distress. Head: Cushingoid looking. Hair is absent Pupils are equal and reactive. Hair thin distribution balding. Oropharynx is clear without lesions. Neck: Supple without lymphadenopathy. Evidence of supraclavicular fullness and fat noted. Heart: Normal S1 and S2, no gallops. Lungs: Diminished breath sound bilaterally, no wheezing on forced expiratory maneuver was noted. Abdomen: Soft, nontender, nondistended with bowel sounds. No peritoneal signs. No palpable organomegaly or masses. Extremities: No clubbing, no edema, no cyanosis. Radial and pedal pulses are 2/ 4 bilaterally. Neurological: No focal deficits. Strength and sensation are grossly intact. Skin: Normal skin turgor, No evidence of rashes. And no ulcerations. - Labs CBC & Chem 7: 06/01/17 06:00 06/01/17 06:00 Labs: Abnormal Lab Results - Last 24 Hours (Table) 05/31/17 06/01/17 06/01/17 Range/Units 20:15 06:00 06:00 RBC 2.87 L 2.67 L (3.80-5.40) m/uL Hgb 9.2 L 8.7 L (11.4-16.0) gm/dL Hct 29.2 L 27.0 L (34.0-46.0) % MCV 101.9 H 100.9 H (80.0-100.0) fL RDW 18.6 H 19.2 H (11.5-15.5) % Plt Count 136 L 123 L (150-450) k/uL Potassium 3.1 L (3.5-5.1) mmol/L BUN 5 L (7-17) mg/dL Creatinine 0.34 L (0.52-1.04) mg/dL Calcium 8.0 L (8.4-10.2) mg/dL Microbiology - Last 24 Hours (Table) 05/28/17 23:53 Blood Culture - Preliminary Blood No Growth after 72 hours Assessment and Plan Plan: Assessment and Plan Plan: Impression: 1 acute rectal bleeding, likely related to constipation, resolved. May have been worsened with the fact that the patient is on Xarelto. 2 cavitary lung mass, secondary to advanced small cell lung cancer with large tumor involving the left midlung. The tumor itself seems to be cavitating, underlying infection is not entirely ruled out, however the patient is not the most ideal candidate for bronchoscopy, at this point I would recommend antibiotics orally on a long-term basis upon discharge. And follow-up on outpatient basis. 3 hydropneumothorax involving the left lung possibility of lung abscess or infected bulla in the left upper lobe is likely. Hence antibiotics would be appropriate, patient would not benefit from any intervention at this point. 4 metastatic small cell lung cancer involving lungs, liver, and brain. Recommendation: Patient can be discharged home from pulmonary standpoint in the next 24 hours. Continue present treatment plan, patient may be discharged home on 3 week long course of oral antibiotics. No plans for bronchoscopy at this time as it would not change the treatment. Prognosis is guarded and poor. I performed a history & physical examination of the patient and discussed their management with my nurse practitioner, Hazel Jackson. I reviewed the nurse practitioner's note and agree with the documented findings and plan of care.
--- NOTE | 2017-06-01 18:42 | P.PN ---
Subjective Principal diagnosis: confusion Patient is a 57-year-old female with a history of metastatic lung cancer to the brain not responsive to chemotherapy, chronic hypoxic respiratory failure, and history of DVT who presented to the ER with chief complaints of rectal bleeding and bright red blood per rectum 2. He was admitted for further evaluation. She was found to have a a cavitary lesion and possible pneumonia and was started on IV antibiotics. GI saw her and she had had a negative colonoscopy approximately 6 months prior. She was found to have significant constipation on her imaging and was started on stool softeners. She has been significantly weak and requiring a three-person assist stand. Patient seen and examined at bedside. She denies any pain, shortness of breath , or nausea. She states she has a chronic wheeze. She is concerned about going home as she is so weak. She will discuss with family a plan for discharge. Objective - Vital Signs Vital signs: Vital Signs Temp 99.4 F 06/01/17 15:00 Pulse 116 H 06/01/17 15:00 Resp 20 06/01/17 15:00 BP 98/55 06/01/17 15:00 Pulse Ox 97 06/01/17 16:11 Intake & Output 05/31/17 06/01/17 06/01/17 18:59 06:59 18:59 Intake Total 950 1740 850 Balance 950 1740 850 Weight 75.296 kg Intake: IV 800 1200 800 Sodium Chloride 0.9% 1, 800 1200 800 000 ml @ 100 mls/hr IV . Q10H [facility] Rx#:[id number] Intake, IV Titration 150 50 Amount Clindamycin 600 mg In 50 Dextrose 5% in Water 50 ml @ 100 mls/hr IVPB Q8HR [facility] Rx#:[id number] Levofloxacin 750Mg-D5w 150 Pmx 750 mg In Dextrose/ Water 1 150ml.bag @ 100 mls/hr IVPB Q24H [facility] Rx#: [id number] Oral 540 Other: Voiding Method Indwelling Catheter Diaper Diaper Incontinent Incontinent # Voids 1 # Bowel Movements 1 - Exam General: non toxic, no distress, appears older than stated age, obese Derm: no rashes, no lesions Head: atraumatic, normocephalic, symmetric Eyes: EOMI, no lid lag, anicteric sclera ENT: no post nasal drip, no thrush Mouth: no lip lesion, mucus membranes moist Cardiovascular: S1S2 reg, no murmur, positive posterior tibial pulse bilateral, Lungs: diffuse wheezin squeezing, no rhonchi, no rales , no accessory muscle use Abdominal: soft, nontender to palpation, no guarding, no appreciable organomegaly Ext: no gross muscle atrophy, no edema, no contractures Neuro: CN II-XI grossly intact, no focal neuro deficits Psych: lowed thinking, Alert, oriented, appropriate affect - Labs CBC & Chem 7: 06/01/17 06:00 06/01/17 06:00 Labs: Abnormal Lab Results - Last 24 Hours (Table) 05/31/17 06/01/17 06/01/17 Range/Units 20:15 06:00 06:00 RBC 2.87 L 2.67 L (3.80-5.40) m/uL Hgb 9.2 L 8.7 L (11.4-16.0) gm/dL Hct 29.2 L 27.0 L (34.0-46.0) % MCV 101.9 H 100.9 H (80.0-100.0) fL RDW 18.6 H 19.2 H (11.5-15.5) % Plt Count 136 L 123 L (150-450) k/uL Potassium 3.1 L (3.5-5.1) mmol/L BUN 5 L (7-17) mg/dL Creatinine 0.34 L (0.52-1.04) mg/dL Calcium 8.0 L (8.4-10.2) mg/dL Microbiology - Last 24 Hours (Table) 05/28/17 23:53 Blood Culture - Preliminary Blood No Growth after 72 hours Assessment and Plan Plan: #cavitary lung mass secondary to advanced small cell lung cancer with probable underlying infection -Pulmonary recommendations appreciated -Not a candidate for bronchiectasis time -3 weeks of oral antibiotics on discharge #Hematochezia secondary to severe constipation -GI recommendations appreciated, no plans for endoscopic evaluation at this time -Stool softeners -Status post fleets enema #Chronic hypoxic respiratory failure -Continue O2 supplementation #Metastatic lung cancer -Oncology on pulmonary recommendations appreciated -Palliative care consultation -On salvage chemotherapy as an outpatient #Anemia and thrombocytopenia secondary to chemotherapy -Follow CBC -Transfuse as needed #Hypokalemia -Replace and recheck in a.m. -Check magnesium #Chronic DVT - #Thrush -Nystatin -Status post Diflucan 1 # sepsis, resolved #Constipation, resolved #hematochezia, resolved Patient will discuss with family plans for discharge. May be complicated is likely cannot continue with chemotherapy if need mcc however currently requiring three-person assist.
[2017-06-01] MEDS: ALBUTEROL NEBULIZED 2.5 MG/3 ML INHALATION PRN (19:29)
[2017-06-02] MEDS: oxyCODONE-APAP 7.5-325MG 1 EACH TAB PO PRN ×2 (05:20→15:24)
[2017-06-02] MEDS: ALBUTEROL NEBULIZED 2.5 MG/3 ML INHALATION PRN ×4 (07:04→18:54)
[2017-06-02] MEDS: CLINDAMYCIN 600 MG in DEXTROSE 5% IN WATER 50 ML IVPB SCH ×6 (07:40→23:14)
[2017-06-02] MEDS: SODIUM CHLORIDE 0.9% 1,000 ML IV SCH ×2 (07:40→23:19)
[2017-06-02] MEDS: DRONABINOL 2.5 MG CAP PO SCH ×2 (08:48→17:04)
[2017-06-02] MEDS: levETIRAcetam 500 MG TAB PO SCH ×2 (08:50→22:13)
[2017-06-02] MEDS: NYSTATIN 100,000 UNIT/ML SUSP 500,000 UNIT/5 ML CUP PO SCH ×4 (08:50→22:13)
[2017-06-02] MEDS: LEVOFLOXACIN 750 MG TAB PO SCH (08:50)
[2017-06-02] MEDS: PANTOPRAZOLE 40 MG/10 ML VIAL IV SCH (08:51)
[2017-06-02] MEDS: POLYETHYLENE GLYCOL 3350 17 GM POWD.PACK PO SCH ×2 (08:51→22:13)
[2017-06-02] MEDS: SUCRALFATE 1 GM TAB PO SCH ×4 (08:51→22:13)
[2017-06-02] MEDS: oxyCODONE-APAP 7.5-325MG 1 EACH TAB PO SCH ×4 (09:04→22:12)
[2017-06-02] MEDS: SENNOSIDES-DOCUSATE SODIUM 1 EACH TAB PO SCH ×2 (09:04→22:12)
--- NOTE | 2017-06-02 12:06 | P.PN ---
Subjective Principal diagnosis: Small cell lung cancer. This is a 57-year-old female with history of small cell lung cancer, patient was diagnosed back in January of 2016, and the diagnosis was made by Dr. Arana, patient underwent bronchoscopy and paratracheal lymph node aspiration. 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 Underwent radiation treatment to the brain, and all along she continued to have abnormal CT of the chest and abnormal chest x-ray showing a masslike consolidation in the superior segment of the left lower lobe with cavitation, and there was also air fluid level at the left lung apex. In spite of the findings, the patient does not have symptoms to suggest ongoing infection although she does have occasional cough with purulent sputum. No fever, no chills, no hemoptysis. Patient is still under the care of Dr. Ortiz, and she is still receiving chemotherapy. This time, the patient presented with one- week history of lower abdominal pain and rectal bleeding. She did have previous history of rectal bleeding however it resolved without any major intervention. In addition to the rectal bleeding, the patient was noted to have fever with a temp of 101.3, and again the chest x-ray showing obese abnormalities in the left lung with cavitation and possible hydropneumothorax, this consult was initiated. Patient was seen by GI on consultation, and at this point her rectal bleeding resolved without any intervention. Advised to be placed on stool softeners mostly. As far as the CT of the chest and chest x- ray are concerned, I have reviewed previous x-rays and scans of the chest going back to January of 2016, last CT of the chest showed cavitary lesion in the left upper lobe and mixed density with air and air fluid levels present. The area has enlarged to approximately 6.59.38.5 cm in size extending to the hilar region with encasement of the left pulmonary artery as well as branches. There is also a large amount of fluid density present within the cavity with air- fluid level extending towards the mediastinum at the thoracic inlet level. There is also mediastinal adenopathy in the retrocaval and pretracheal as well as subcarinal locations. All in all this is basically pointing to worsening small cell lung cancer and possible underlying infection is not entirely ruled out. Surprisingly, the patient does not seem to be as symptomatic as she should be compared to the findings noted on the CT of the chest and chest x- ray. On 05/31/2017patient is seen sitting up in bed in no acute distress. She denies any further rectal bleeding or abdominal pain.Today's hemoglobin is 9.7.hemodynamically stable, although continues to be tachycardic in the range of 110-120. She denies any chest congestion, wheezing, shortness of breath. On 2 L oxygen per nasal cannula with sats around 95%. No febrile episodes through the night. Respirations are even and nonlabored. No wheezes, no rhonchi or rales noted.blood culture showed no growth after 48 hours, urine cultures negative. Patient's rectal bleeding is thought to be related to constipation and anticoagulation in the form of Xarelto. Endoscopic exams are not planned at this time.From pulmonary standpoint patient will continue on empiric antibioticsin the form of Levaquin and DuoNeb nebulized treatments. On 06/01/2017 patient continues with no significant respiratory distress. No new episodes of rectal bleeding or abdominal pain. Vital signs are stable. She denies any wheezing, chills or shortness of breath. No fevers, hemodynamically stable. Hemoglobin is 8.7 today but no signs of acute blood loss. She continues on 2 L oxygen per nasal cannula with saturations at 97%. She will continue on IV clindamycin Levaquin. DuoNeb nebulizer treatments. Microbiology results have been reviewed and are negative so far. The patient was seen again today 06/02/2017 in follow-up on the oncology unit. She is currently resting quite comfortably in bed. She denies any worsening shortness of breath, cough or congestion. No chills or night sweats. She is maintaining good O2 saturations in the mid 90s on 3 L/m per nasal cannula. She did have a temperature last evening of 100.3. Blood and urine cultures reveal no growth. He was open and is drifting down currently at 8.7. Objective - Vital Signs Vital signs: Vital Signs Temp 97.1 F L 06/02/17 07:00 Pulse 109 H 06/02/17 11:24 Resp 18 06/02/17 07:00 BP 110/75 06/02/17 07:00 Pulse Ox 95 06/02/17 07:04 Intake & Output 06/01/17 06/02/17 06/02/17 18:59 06:59 18:59 Intake Total 850 1150 Balance 850 1150 Weight 75.296 kg Intake: IV 800 350 Sodium Chloride 0.9% 1, 800 350 000 ml @ 100 mls/hr IV . Q10H YON Rx#:[id number] Intake, IV Titration 50 800 Amount Clindamycin 600 mg In 50 50 Dextrose 5% in Water 50 ml @ 100 mls/hr IVPB Q8HR YON Rx#:[id number] Sodium Chloride 0.9% 1, 750 000 ml @ 100 mls/hr IV . Q10H YON Rx#:[id number] Other: Voiding Method Diaper Diaper Incontinent Incontinent # Voids 1 # Bowel Movements 1 - Exam General appearance: Physical examination revealed a 57-year-old female, cushingoid looking, obese, in no form of respiratory distress. Head: Cushingoid looking. Hair is absent Pupils are equal and reactive. Hair thin distribution balding. Oropharynx is clear without lesions. Neck: Supple without lymphadenopathy. Evidence of supraclavicular fullness and fat noted. Heart: Normal S1 and S2, no gallops. Lungs: Diminished breath sound bilaterally, no wheezing on forced expiratory maneuver was noted. Abdomen: Soft, nontender, nondistended with bowel sounds. No peritoneal signs. No palpable organomegaly or masses. Extremities: No clubbing, no edema, no cyanosis. Radial and pedal pulses are 2/ 4 bilaterally. Neurological: No focal deficits. Strength and sensation are grossly intact. Skin: Normal skin turgor, No evidence of rashes. And no ulcerations. - Labs CBC & Chem 7: 06/01/17 06:00 06/01/17 06:00 Labs: Microbiology - Last 24 Hours (Table) 05/28/17 23:53 Blood Culture - Preliminary Blood No Growth after 96 hours Assessment and Plan Plan: Impression: #1 Acute rectal bleeding secondary to constipation, resolved. The patient was on Xarelto as well. #2 Cavitary lung mass secondary to advanced small cell lung cancer with large tumor involving the left mid lung. The tumor itself seems to be cavitating, underlying infection is not entirely excluded. The patient is not a candidate for bronchoscopy. Continue antibiotics. #3 Hydropneumothorax involving the left lung possibility of a lung abscess or infected below the left upper lobe is likely. Continue antibiotics. #4 Metastatic small cell lung cancer involving the lungs liver and brain. Plan: The patient was seen and evaluated by Dr. Lopez. She is improved today as compared to yesterday. No plans for bronchoscopy at this point. We'll continue with her current medications. She remains on clindamycin and Levaquin. We will continue to follow and make further recommendations based on her clinical status. I have completed a history and physical examination on the above patient. I agree with the note as dictated by my nurse practitioner, Swapna Castro. We have reviewed and discussed the assessment and plan of care.
[2017-06-02] MEDS: POTASSIUM CHLORIDE 20 MEQ in WATER FOR INJECTION 1 100ML.BAG IVPB SCH ×2 (13:02→15:17)
--- NOTE | 2017-06-02 15:13 | P.PN ---
Subjective Principal diagnosis: Metastatic lung cancer Patient spikes fever yesterday and has been afebrile for the last 12 hours patient received no Tylenol this morning and the last thing she received is Eitzen and has been afebrile but patient currently is lethargic barely opening her eyes but still appropriate and answering questions. Sister at the bedside reassured me that the patient would eat less than 25% of her meals despite given her Marinol this morning. Patient continued to be on nasal cannula and seems to be lethargic in no acute distress. Objective - Vital Signs Vital signs: Vital Signs Temp 97.1 F L 06/02/17 07:00 Pulse 109 H 06/02/17 11:24 Resp 18 06/02/17 07:00 BP 110/75 06/02/17 07:00 Pulse Ox 95 06/02/17 07:04 Intake & Output 06/01/17 06/02/17 06/02/17 18:59 06:59 18:59 Intake Total 850 1150 Balance 850 1150 Weight 75.296 kg Intake: IV 800 350 Sodium Chloride 0.9% 1, 800 350 000 ml @ 100 mls/hr IV . Q10H YON Rx#:[id number] Intake, IV Titration 50 800 Amount Clindamycin 600 mg In 50 50 Dextrose 5% in Water 50 ml @ 100 mls/hr IVPB Q8HR YON Rx#:[id number] Sodium Chloride 0.9% 1, 750 000 ml @ 100 mls/hr IV . Q10H YON Rx#:[id number] Other: Voiding Method Diaper Diaper Incontinent Incontinent # Voids 1 # Bowel Movements 1 - Constitutional General appearance: Present: no acute distress, obese - Respiratory Respiratory: bilateral: diminished - Cardiovascular Heart sounds: normal: S1, S2 - Gastrointestinal General gastrointestinal: Present: normal bowel sounds, soft - Integumentary Integumentary: Present: pale - Neurologic Neurologic: Present: CNII-XII intact - Psychiatric Psychiatric: Present: A&O x's 3 - Labs CBC & Chem 7: 06/01/17 06:00 06/01/17 06:00 Labs: Microbiology - Last 24 Hours (Table) 05/28/17 23:53 Blood Culture - Preliminary Blood No Growth after 96 hours Assessment and Plan Plan: # Fever. resolving continue current antibiotics, consider d/c on Sunday if continued to be afebrile. #cavitary lung mass secondary to advanced small cell lung cancer with probable underlying infection -3 weeks of oral antibiotics on discharge #Hematochezia secondary to severe constipation -GI recommendations appreciated, no plans for endoscopic evaluation at this time -Stool softeners -Status post fleets enema #Chronic hypoxic respiratory failure -Continue O2 supplementation #Metastatic lung cancer -Oncology on pulmonary recommendations appreciated -Palliative care consultation -On salvage chemotherapy as an outpatient #Anemia and thrombocytopenia secondary to chemotherapy -Follow CBC -Transfuse as needed #Hypokalemia -Replace and recheck in a.m. -Check magnesium #Chronic DVT - #Thrush -Nystatin -Status post Diflucan 1 # sepsis, resolved #Constipation, resolved #hematochezia, resolved
[2017-06-03] MEDS: SODIUM CHLORIDE 0.9% 1,000 ML IV SCH (05:57)
[2017-06-03] MEDS: oxyCODONE-APAP 7.5-325MG 1 EACH TAB PO PRN ×2 (06:09→15:49)
[2017-06-03 06:15] LABS: Anisocytosis Slight; CH 32.4; CHCM 31.7; HCT 26.3 % (34.0-46.0); HDW 3.25; HGB 8.4 gm/dL (11.4-16.0); Hypochromasia Slight; MCH 32.9 pg (25.0-35.0); MCHC 32.1 g/dL (31.0-37.0); MCV 102.5 fL (80.0-100.0); Macrocytosis Moderate; Mean Platelet Volume 7.6; RBC 2.56 m/uL (3.80-5.40); RDW 19.2 % (11.5-15.5); WBC 4.8 k/uL (3.8-10.6)
[2017-06-03 06:28] LABS: Anion Gap 8 mmol/L; Blood Urea Nitrogen 4 mg/dL (7-17); Calcium 8.2 mg/dL (8.4-10.2); Carbon Dioxide 27 mmol/L (22-30); Chloride 100 mmol/L (98-107); Glucose 81 mg/dL (74-99); Magnesium 1.5 mg/dL (1.6-2.3); Non-African American GFR(MDRD) >60 (>60 ml/min/1.73 sqM); Phosphorus 4.6 mg/dL (2.5-4.5); Potassium 3.5 mmol/L (3.5-5.1); Sodium 135 mmol/L (137-145)
[2017-06-03] MEDS: DRONABINOL 2.5 MG CAP PO SCH ×2 (07:34→18:13)
[2017-06-03] MEDS: CLINDAMYCIN 600 MG in DEXTROSE 5% IN WATER 50 ML IVPB SCH ×6 (07:34→23:34)
[2017-06-03] MEDS: ALBUTEROL NEBULIZED 2.5 MG/3 ML INHALATION PRN ×4 (07:42→20:13)
[2017-06-03] MEDS ORDERED: BUMETANIDE 0.25 MG/ML 4 ML VIAL IVP ONE (08:30)
[2017-06-03] MEDS ORDERED: FUROSEMIDE 10 MG/ML 2 ML VIAL IV ONE (09:30)
[2017-06-03] MEDS: LEVOFLOXACIN 750 MG TAB PO SCH (09:31)
[2017-06-03] MEDS: POLYETHYLENE GLYCOL 3350 17 GM POWD.PACK PO SCH ×2 (09:31→22:52)
[2017-06-03] MEDS: SUCRALFATE 1 GM TAB PO SCH ×4 (09:31→21:34)
[2017-06-03] MEDS: PANTOPRAZOLE 40 MG/10 ML VIAL IV SCH (09:31)
[2017-06-03] MEDS: levETIRAcetam 500 MG TAB PO SCH ×2 (09:31→21:33)
[2017-06-03] MEDS: NYSTATIN 100,000 UNIT/ML SUSP 500,000 UNIT/5 ML CUP PO SCH ×4 (09:32→21:34)
--- NOTE | 2017-06-03 09:32 | P.PN ---
Subjective Principal diagnosis: Shortness of breath Shortness of breath this am more than usual. Continues with poor appetite. She is otherwise awake and alert. Denies cough or expectoration or chest pain. Denies chills or fever. no abdominal pain or diarrhea. Objective - Vital Signs Vital signs: Vital Signs Temp 97.6 F 06/03/17 07:00 Pulse 116 H 06/03/17 07:51 Resp 20 06/03/17 07:00 BP 113/68 06/03/17 07:00 Pulse Ox 97 06/03/17 07:00 Intake & Output 06/02/17 06/03/17 06/03/17 18:59 06:59 18:59 Intake Total 950 920 Balance 950 920 Intake: IV 800 Sodium Chloride 0.9% 1, 800 000 ml @ 100 mls/hr IV . Q10H YON Rx#:[id number] Intake, IV Titration 950 Amount Clindamycin 600 mg In 50 Dextrose 5% in Water 50 ml @ 100 mls/hr IVPB Q8HR YON Rx#:[id number] Potassium Chloride 20 meq 100 In Water For Injection 1 100ml.bag @ 50 mls/hr IVPB Q2HR YON Rx#: [id number] Sodium Chloride 0.9% 1, 800 000 ml @ 100 mls/hr IV . Q10H YON Rx#:[id number] Oral 120 Other: Voiding Method Diaper Diaper Incontinent Incontinent # Voids 2 1 - Constitutional General appearance: Present: cooperative, mild distress - EENT Eyes: Present: anicteric sclerae, EOMI, PERRLA - Neck Neck: Present: normal ROM. Absent: lymphadenopathy - Respiratory Respiratory: left: diminished, bilateral: rhonchi, wheezing - Cardiovascular Heart rate: 100 Rhythm: regular Heart sounds: normal: S1, S2 - Gastrointestinal General gastrointestinal: Present: normal bowel sounds, soft. Absent: distended , organomegaly - Integumentary Integumentary: Present: pale - Neurologic Neurologic: Present: CNII-XII intact. Absent: focal deficits - Psychiatric Psychiatric: Present: A&O x's 3 (upper and lower extr edema, IV sites clean no erythema, no joint swelling or tenderness) - Labs CBC & Chem 7: 06/03/17 06:07 06/03/17 06:07 Labs: Abnormal Lab Results - Last 24 Hours (Table) 06/03/17 06/03/17 Range/Units 06:07 06:07 RBC 2.56 L (3.80-5.40) m/uL Hgb 8.4 L (11.4-16.0) gm/dL Hct 26.3 L (34.0-46.0) % MCV 102.5 H (80.0-100.0) fL RDW 19.2 H (11.5-15.5) % Plt Count 124 L (150-450) k/uL Sodium 135 L (137-145) mmol/L BUN 4 L (7-17) mg/dL Creatinine 0.30 L (0.52-1.04) mg/dL Calcium 8.2 L (8.4-10.2) mg/dL Phosphorus 4.6 H (2.5-4.5) mg/dL Magnesium 1.5 L (1.6-2.3) mg/dL Microbiology - Last 24 Hours (Table) 05/28/17 23:53 Blood Culture - Preliminary Blood No Growth after 120 hours Assessment and Plan Plan: 1. Acute on chronic hypoxic respiratory failure cont on O2 supplementation dc IV fluids gentle diuresis 2. Postobstructive pneumonia with pleural loculated effusion pulmonary following cont antibiotics for 3 weeks per plan 3. Extensive small cell carcinoma of the lungs oncology following 4. Severe debility in view of above would consider hospice 5. Severe protein calorie malnutrition currently on Marinol cont with poor appetite 6. Hypomagnesiemia von replace 7. An[place]arka gentle diuresis
[2017-06-03] MEDS: SENNOSIDES-DOCUSATE SODIUM 1 EACH TAB PO SCH ×2 (10:12→21:33)
[2017-06-03] MEDS: oxyCODONE-APAP 7.5-325MG 1 EACH TAB PO SCH ×4 (10:13→21:33)
--- NOTE | 2017-06-03 12:22 | P.PN ---
Subjective Principal diagnosis: Small cell lung cancer This is a 57-year-old female with history of small cell lung cancer, patient was diagnosed back in January of 2016, and the diagnosis was made by Dr. Arana, patient underwent bronchoscopy and paratracheal lymph node aspiration. 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 Underwent radiation treatment to the brain, and all along she continued to have abnormal CT of the chest and abnormal chest x-ray showing a masslike consolidation in the superior segment of the left lower lobe with cavitation, and there was also air fluid level at the left lung apex. In spite of the findings, the patient does not have symptoms to suggest ongoing infection although she does have occasional cough with purulent sputum. No fever, no chills, no hemoptysis. Patient is still under the care of Dr. Ortiz, and she is still receiving chemotherapy. This time, the patient presented with one- week history of lower abdominal pain and rectal bleeding. She did have previous history of rectal bleeding however it resolved without any major intervention. In addition to the rectal bleeding, the patient was noted to have fever with a temp of 101.3, and again the chest x-ray showing obese abnormalities in the left lung with cavitation and possible hydropneumothorax, this consult was initiated. Patient was seen by GI on consultation, and at this point her rectal bleeding resolved without any intervention. Advised to be placed on stool softeners mostly. As far as the CT of the chest and chest x- ray are concerned, I have reviewed previous x-rays and scans of the chest going back to January of 2016, last CT of the chest showed cavitary lesion in the left upper lobe and mixed density with air and air fluid levels present. The area has enlarged to approximately 6.59.38.5 cm in size extending to the hilar region with encasement of the left pulmonary artery as well as branches. There is also a large amount of fluid density present within the cavity with air- fluid level extending towards the mediastinum at the thoracic inlet level. There is also mediastinal adenopathy in the retrocaval and pretracheal as well as subcarinal locations. All in all this is basically pointing to worsening small cell lung cancer and possible underlying infection is not entirely ruled out. Surprisingly, the patient does not seem to be as symptomatic as she should be compared to the findings noted on the CT of the chest and chest x- ray. On 05/31/2017patient is seen sitting up in bed in no acute distress. She denies any further rectal bleeding or abdominal pain.Today's hemoglobin is 9.7.hemodynamically stable, although continues to be tachycardic in the range of 110-120. She denies any chest congestion, wheezing, shortness of breath. On 2 L oxygen per nasal cannula with sats around 95%. No febrile episodes through the night. Respirations are even and nonlabored. No wheezes, no rhonchi or rales noted.blood culture showed no growth after 48 hours, urine cultures negative. Patient's rectal bleeding is thought to be related to constipation and anticoagulation in the form of Xarelto. Endoscopic exams are not planned at this time.From pulmonary standpoint patient will continue on empiric antibioticsin the form of Levaquin and DuoNeb nebulized treatments. On 06/01/2017 patient continues with no significant respiratory distress. No new episodes of rectal bleeding or abdominal pain. Vital signs are stable. She denies any wheezing, chills or shortness of breath. No fevers, hemodynamically stable. Hemoglobin is 8.7 today but no signs of acute blood loss. She continues on 2 L oxygen per nasal cannula with saturations at 97%. She will continue on IV clindamycin Levaquin. DuoNeb nebulizer treatments. Microbiology results have been reviewed and are negative so far. The patient was seen again today 06/02/2017 in follow-up on the oncology unit. She is currently resting quite comfortably in bed. She denies any worsening shortness of breath, cough or congestion. No chills or night sweats. She is maintaining good O2 saturations in the mid 90s on 3 L/m per nasal cannula. She did have a temperature last evening of 100.3. Blood and urine cultures reveal no growth. He was open and is drifting down currently at 8.7. Patient was reevaluated today on 06/03/2017, remains comfortable in bed, no shortness of breath, no cough, no wheezing, patient seems to be edematous, and she already received a dose of Bumex by the admitting physician. Labs were reviewed, vitals were also reviewed. Patient is about the same as she was in the last few days. Objective - Vital Signs Vital signs: Vital Signs Temp 97.6 F 06/03/17 07:00 Pulse 112 H 06/03/17 11:17 Resp 20 06/03/17 07:00 BP 113/68 06/03/17 07:00 Pulse Ox 97 06/03/17 07:00 Intake & Output 06/02/17 06/03/17 06/03/17 18:59 06:59 18:59 Intake Total 950 920 Balance 950 920 Intake: IV 800 Sodium Chloride 0.9% 1, 800 000 ml @ 100 mls/hr IV . Q10H YON Rx#:[id number] Intake, IV Titration 950 Amount Clindamycin 600 mg In 50 Dextrose 5% in Water 50 ml @ 100 mls/hr IVPB Q8HR YON Rx#:[id number] Potassium Chloride 20 meq 100 In Water For Injection 1 100ml.bag @ 50 mls/hr IVPB Q2HR YON Rx#: [id number] Sodium Chloride 0.9% 1, 800 000 ml @ 100 mls/hr IV . Q10H YON Rx#:[id number] Oral 120 Other: Voiding Method Diaper Diaper Diaper Incontinent Incontinent Incontinent # Voids 2 1 - Exam General appearance: Physical examination revealed a 57-year-old female, cushingoid looking, obese, in no form of respiratory distress. Head: Cushingoid looking. Hair is absent Pupils are equal and reactive. Hair thin distribution balding. Oropharynx is clear without lesions. Neck: Supple without lymphadenopathy. Evidence of supraclavicular fullness and fat noted. Heart: Normal S1 and S2, no gallops. Lungs: Diminished breath sound bilaterally, no wheezing on forced expiratory maneuver was noted. Abdomen: Soft, nontender, nondistended with bowel sounds. No peritoneal signs. No palpable organomegaly or masses. Extremities: No clubbing, 2+ bipedal edema, no cyanosis. Radial and pedal pulses are 2/4 bilaterally. Neurological: No focal deficits. Strength and sensation are grossly intact. Skin: Normal skin turgor, No evidence of rashes. And no ulcerations. Significant swelling noted in hands and lower extremities. - Labs CBC & Chem 7: 06/03/17 06:07 06/03/17 06:07 Labs: Abnormal Lab Results - Last 24 Hours (Table) 06/03/17 06/03/17 Range/Units 06:07 06:07 RBC 2.56 L (3.80-5.40) m/uL Hgb 8.4 L (11.4-16.0) gm/dL Hct 26.3 L (34.0-46.0) % MCV 102.5 H (80.0-100.0) fL RDW 19.2 H (11.5-15.5) % Plt Count 124 L (150-450) k/uL Sodium 135 L (137-145) mmol/L BUN 4 L (7-17) mg/dL Creatinine 0.30 L (0.52-1.04) mg/dL Calcium 8.2 L (8.4-10.2) mg/dL Phosphorus 4.6 H (2.5-4.5) mg/dL Magnesium 1.5 L (1.6-2.3) mg/dL Microbiology - Last 24 Hours (Table) 05/28/17 23:53 Blood Culture - Preliminary Blood No Growth after 120 hours Assessment and Plan Plan: #1 Acute rectal bleeding secondary to constipation, resolved. The patient was on Xarelto as well. #2 Cavitary lung mass secondary to advanced small cell lung cancer with large tumor involving the left mid lung. The tumor itself seems to be cavitating, underlying infection is not entirely excluded. The patient is not a candidate for bronchoscopy. Continue antibiotics. #3 Hydropneumothorax involving the left lung possibility of a lung abscess or infected below the left upper lobe is likely. Continue antibiotics. #4 Metastatic small cell lung cancer involving the lungs liver and brain. Recommendation: Continue present treatment plan, no plans for bronchoscopy, patient is not a good candidate for any invasive procedures, continue antibiotics, and follow up on outpatient basis. Time with Patient: Less than 30
[2017-06-03] MEDS: MAGNESIUM OXIDE 400 MG TAB PO SCH (21:33)
[2017-06-03] MEDS: HYDROmorphone 1 MG/ML 1 ML SYRINGE IV PRN (22:54)
[2017-06-04 07:36] LABS: Anisocytosis Slight; CH 31.3; CHCM 30.4; HCT 26.9 % (34.0-46.0); HDW 3.24; HGB 8.2 gm/dL (11.4-16.0); Hypochromasia Marked; MCH 31.6 pg (25.0-35.0); MCHC 30.6 g/dL (31.0-37.0); MCV 103.2 fL (80.0-100.0); Macrocytosis Moderate; Mean Platelet Volume 6.9; RBC 2.61 m/uL (3.80-5.40); RDW 18.4 % (11.5-15.5); WBC 4.9 k/uL (3.8-10.6)
[2017-06-04 07:38] LABS: INR 1.1 (<1.2); Partial Thromboplastin Time 27.7 sec (22.0-30.0)
[2017-06-04 07:40] LABS: Anion Gap 8 mmol/L; Blood Urea Nitrogen 5 mg/dL (7-17); Calcium 8.3 mg/dL (8.4-10.2); Carbon Dioxide 29 mmol/L (22-30); Chloride 99 mmol/L (98-107); Glucose 94 mg/dL (74-99); Magnesium 1.6 mg/dL (1.6-2.3); Non-African American GFR(MDRD) >60 (>60 ml/min/1.73 sqM); Potassium 3.3 mmol/L (3.5-5.1); Sodium 136 mmol/L (137-145)
[2017-06-04] MEDS: CLINDAMYCIN 600 MG in DEXTROSE 5% IN WATER 50 ML IVPB SCH ×4 (08:00→16:46)
[2017-06-04] MEDS: DRONABINOL 2.5 MG CAP PO SCH ×2 (08:09→08:26)
[2017-06-04] MEDS: oxyCODONE-APAP 7.5-325MG 1 EACH TAB PO SCH ×2 (08:09→13:37)
[2017-06-04] MEDS: MAGNESIUM OXIDE 400 MG TAB PO SCH ×2 (08:11→08:27)
[2017-06-04] MEDS: LEVOFLOXACIN 750 MG TAB PO SCH ×2 (08:11→08:27)
[2017-06-04] MEDS: levETIRAcetam 500 MG TAB PO SCH (08:11)
[2017-06-04] MEDS: PANTOPRAZOLE 40 MG/10 ML VIAL IV SCH (08:12)
[2017-06-04] MEDS: NYSTATIN 100,000 UNIT/ML SUSP 500,000 UNIT/5 ML CUP PO SCH ×3 (08:12→13:37)
[2017-06-04] MEDS: SUCRALFATE 1 GM TAB PO SCH ×3 (08:12→13:38)
[2017-06-04] MEDS: SENNOSIDES-DOCUSATE SODIUM 1 EACH TAB PO SCH (08:24)
[2017-06-04] MEDS: POLYETHYLENE GLYCOL 3350 17 GM POWD.PACK PO SCH (08:24)
[2017-06-04] MEDS ORDERED: MAGNESIUM HYDROXIDE 2,400 MG/10 ML CUP PO STA (09:44)
[2017-06-04] MEDS ORDERED: MAGNESIUM HYDROXIDE 2,400 MG/10 ML CUP PO PRN (09:44)
[2017-06-04] MEDS: HYDROmorphone 1 MG/ML 1 ML SYRINGE IV PRN ×2 (11:36→17:21)
--- NOTE | 2017-06-04 12:38 | P.PN ---
Subjective Principal diagnosis: rectal bleeding secondary to constipation Patient seen today in follow-up. She did verbally respond to voice, she did appear to be mildly uncomfortable, facial grimace and moaning with passive movement, otherwise she was rather non-communicative. Objective - Vital Signs Vital signs: Vital Signs Temp 98.9 F 06/04/17 07:00 Pulse 115 H 06/04/17 08:00 Resp 18 06/04/17 08:00 BP 112/60 06/04/17 07:00 Pulse Ox 96 06/04/17 07:00 Intake & Output 06/03/17 06/04/17 06/04/17 18:59 06:59 18:59 Intake Total 0 Output Total 650 Balance 0 -650 Intake: IV 0 Sodium Chloride 0.9% 1, 0 000 ml @ 100 mls/hr IV . Q10H [facility] Rx#:[id number] Output: Urine 650 Other: Voiding Method Diaper Indwelling Catheter Indwelling Catheter Incontinent # Voids 3 0 - Constitutional Constitutional Comment(s): keller facies secondary to chronic steroid use, pale, clammy skin General appearance: Present: mild distress - EENT EENT Comment(s): patient has difficulty opening right eye - Respiratory Respiratory: bilateral: diminished, other (weak inspiratory effort) - Cardiovascular Heart sounds: normal: S1, S2 Abnormal Heart Sounds: Present: systolic murmur - Peripheral edema leg Peripheral Edema Comment(s): upper extremities more edematous then the lower extremities Peripheral Edema: bilateral: 1+ - Gastrointestinal General gastrointestinal: Present: normal bowel sounds, soft - Musculoskeletal Musculoskeletal Comment(s): patient is unable to independently move on her own Musculoskeletal: Present: generalized weakness - Psychiatric Psychiatric: Absent: A&O x's 3, appropriate affect, intact judgment & insight - Labs CBC & Chem 7: 06/04/17 06:50 06/04/17 06:50 Labs: Abnormal Lab Results - Last 24 Hours (Table) 06/04/17 06/04/17 Range/Units 06:50 06:50 RBC 2.61 L (3.80-5.40) m/uL Hgb 8.2 L (11.4-16.0) gm/dL Hct 26.9 L (34.0-46.0) % MCV 103.2 H (80.0-100.0) fL MCHC 30.6 L (31.0-37.0) g/dL RDW 18.4 H (11.5-15.5) % Plt Count 124 L (150-450) k/uL Sodium 136 L (137-145) mmol/L Potassium 3.3 L (3.5-5.1) mmol/L BUN 5 L (7-17) mg/dL Creatinine 0.30 L (0.52-1.04) mg/dL Calcium 8.3 L (8.4-10.2) mg/dL Microbiology - Last 24 Hours (Table) 05/28/17 23:53 Blood Culture - Final Blood No Growth after 144 hours Assessment and Plan (1) Rectal bleeding Narrative/Plan: Secondary to constipation, patient has had no additional rectal bleeding reported by nursing. Pt Hgb has dropped significantly since admit, likely multi -factorial including hemoconcentration and chemotherapy effects. Pt has history of chemo that has likely weakened her marrow response. CBC will be monitored while inpatient Status: Acute (2) Constipation Narrative/Plan: Nursing stated difficulty with pt swallowing meds, she swallows only pain pills so, pt has not taken meds for constipation, MOM ordered STAT. Last documented BM was the 06/01. 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 It is clear that pt cancer is not curable, in her current condition pt is not a candidate for treatment. It was discussed that life expectancy is measurable in weeks at best. We defined goals as keeping pt comfortable, at home. Discussed case with [employer], [facility] consulted at family request. Pt and family would like her to go home today. Pt can be discharged from Hem/Onc standpoint as soon as services are in place. Time with Patient: Greater than 30 (counseling and coordinating care)
--- NOTE | 2017-06-04 15:22 | P.PN ---
Subjective Principal diagnosis: small cell lung cancer and abnormal chest x-ray and CT of the chest. This is a 57-year-old female with history of small cell lung cancer, patient was diagnosed back in January of 2016, and the diagnosis was made by Dr. Arana, patient underwent bronchoscopy and paratracheal lymph node aspiration. 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 Underwent radiation treatment to the brain, and all along she continued to have abnormal CT of the chest and abnormal chest x-ray showing a masslike consolidation in the superior segment of the left lower lobe with cavitation, and there was also air fluid level at the left lung apex. In spite of the findings, the patient does not have symptoms to suggest ongoing infection although she does have occasional cough with purulent sputum. No fever, no chills, no hemoptysis. Patient is still under the care of Dr. Ortiz, and she is still receiving chemotherapy. This time, the patient presented with one- week history of lower abdominal pain and rectal bleeding. She did have previous history of rectal bleeding however it resolved without any major intervention. In addition to the rectal bleeding, the patient was noted to have fever with a temp of 101.3, and again the chest x-ray showing obese abnormalities in the left lung with cavitation and possible hydropneumothorax, this consult was initiated. Patient was seen by GI on consultation, and at this point her rectal bleeding resolved without any intervention. Advised to be placed on stool softeners mostly. As far as the CT of the chest and chest x- ray are concerned, I have reviewed previous x-rays and scans of the chest going back to January of 2016, last CT of the chest showed cavitary lesion in the left upper lobe and mixed density with air and air fluid levels present. The area has enlarged to approximately 6.59.38.5 cm in size extending to the hilar region with encasement of the left pulmonary artery as well as branches. There is also a large amount of fluid density present within the cavity with air- fluid level extending towards the mediastinum at the thoracic inlet level. There is also mediastinal adenopathy in the retrocaval and pretracheal as well as subcarinal locations. All in all this is basically pointing to worsening small cell lung cancer and possible underlying infection is not entirely ruled out. Surprisingly, the patient does not seem to be as symptomatic as she should be compared to the findings noted on the CT of the chest and chest x- ray. On 05/31/2017patient is seen sitting up in bed in no acute distress. She denies any further rectal bleeding or abdominal pain.Today's hemoglobin is 9.7.hemodynamically stable, although continues to be tachycardic in the range of 110-120. She denies any chest congestion, wheezing, shortness of breath. On 2 L oxygen per nasal cannula with sats around 95%. No febrile episodes through the night. Respirations are even and nonlabored. No wheezes, no rhonchi or rales noted.blood culture showed no growth after 48 hours, urine cultures negative. Patient's rectal bleeding is thought to be related to constipation and anticoagulation in the form of Xarelto. Endoscopic exams are not planned at this time.From pulmonary standpoint patient will continue on empiric antibioticsin the form of Levaquin and DuoNeb nebulized treatments. On 06/01/2017 patient continues with no significant respiratory distress. No new episodes of rectal bleeding or abdominal pain. Vital signs are stable. She denies any wheezing, chills or shortness of breath. No fevers, hemodynamically stable. Hemoglobin is 8.7 today but no signs of acute blood loss. She continues on 2 L oxygen per nasal cannula with saturations at 97%. She will continue on IV clindamycin Levaquin. DuoNeb nebulizer treatments. Microbiology results have been reviewed and are negative so far. The patient was seen again today 06/02/2017 and follow-up on the regular medical floor. She is awake and alert in no acute distress. She is status post right-sided thoracentesis. Analysis is still pending. She denies any worsening shortness of breath, cough or congestion. She is breathing easier today as compared to yesterday. Postprocedure chest x-ray showed near complete resolution of the right-sided pleural effusion. He is maintaining good O2 saturations in the upper 90s on 3 L/m per nasal cannula. She's been hemodynamically stable. Afebrile. Her warfarin was resumed. She remains on Zosyn. Reevaluated today on 06/03/2017, patient is feeling great, relatively asymptomatic, tolerated her last thoracentesis quite well. No cough no wheezing no shortness of breath, and no further episodes of abdominal pain. Labs were reviewed. Pleural effusion results are pending, only the cell count was noted., Nondiagnostic. On 06/04/2017 the patient's is seen in follow-up. She is resting in bed, her breathing has been stable, she denies any worsening chest congestion. She has been afebrile, hemodynamically stable, she has been maintaining her oxygen saturations are 99% on 3 L per nasal cannula. She has had no further episodes of rectal bleeding. Her most recent blood work showed stable hemoglobin at 8.2 , she continues on a combination of clindamycin Levaquin for the presumed left lung infection stated with advanced small cell lung cancer Objective - Vital Signs Vital signs: Vital Signs Temp 98.9 F 06/04/17 07:00 Pulse 115 H 06/04/17 08:00 Resp 18 06/04/17 08:00 BP 112/60 06/04/17 07:00 Pulse Ox 96 06/04/17 07:00 Intake & Output 06/03/17 06/04/17 06/04/17 18:59 06:59 18:59 Intake Total 0 Output Total 650 Balance 0 -650 Intake: IV 0 Sodium Chloride 0.9% 1, 0 000 ml @ 100 mls/hr IV . Q10H [facility] Rx#:[id number] Output: Urine 650 Other: Voiding Method Diaper Indwelling Catheter Indwelling Catheter Incontinent # Voids 3 0 - Exam General appearance: Physical examination revealed a 57-year-old female, cushingoid looking, obese, in no form of respiratory distress. Head: Cushingoid looking. Hair is absent Pupils are equal and reactive. Hair thin distribution balding. Oropharynx is clear without lesions. Neck: Supple without lymphadenopathy. Evidence of supraclavicular fullness and fat noted. Heart: Normal S1 and S2, no gallops. Lungs: Diminished breath sound bilaterally, no wheezing on forced expiratory maneuver was noted. Abdomen: Soft, nontender, nondistended with bowel sounds. No peritoneal signs. No palpable organomegaly or masses. Extremities: No clubbing, no edema, no cyanosis. Radial and pedal pulses are 2/ 4 bilaterally. Neurological: No focal deficits. Strength and sensation are grossly intact. Skin: Normal skin turgor, No evidence of rashes. And no ulcerations. - Labs CBC & Chem 7: 06/04/17 06:50 06/04/17 06:50 Labs: Abnormal Lab Results - Last 24 Hours (Table) 06/04/17 06/04/17 Range/Units 06:50 06:50 RBC 2.61 L (3.80-5.40) m/uL Hgb 8.2 L (11.4-16.0) gm/dL Hct 26.9 L (34.0-46.0) % MCV 103.2 H (80.0-100.0) fL MCHC 30.6 L (31.0-37.0) g/dL RDW 18.4 H (11.5-15.5) % Plt Count 124 L (150-450) k/uL Sodium 136 L (137-145) mmol/L Potassium 3.3 L (3.5-5.1) mmol/L BUN 5 L (7-17) mg/dL Creatinine 0.30 L (0.52-1.04) mg/dL Calcium 8.3 L (8.4-10.2) mg/dL Microbiology - Last 24 Hours (Table) 05/28/17 23:53 Blood Culture - Final Blood No Growth after 144 hours Assessment and Plan Plan: Assessment and Plan Plan: Impression: 1 acute rectal bleeding, likely related to constipation, resolved. May have been worsened with the fact that the patient is on Xarelto. 2 cavitary lung mass, secondary to advanced small cell lung cancer with large tumor involving the left midlung. The tumor itself seems to be cavitating, underlying infection is not entirely ruled out, however the patient is not the most ideal candidate for bronchoscopy, at this point I would recommend antibiotics orally on a long-term basis upon discharge. And follow-up on outpatient basis. 3 hydropneumothorax involving the left lung possibility of lung abscess or infected bulla in the left upper lobe is likely. Hence antibiotics would be appropriate, patient would not benefit from any intervention at this point. 4 metastatic small cell lung cancer involving lungs, liver, and brain. Recommendation: Patient can be discharged home from pulmonary standpoint today or tomorrow. Continue present treatment plan, patient may be discharged home on 3 week long course of oral antibiotics. No plans for bronchoscopy at this time as it would not change the treatment. Prognosis is guarded and poor. I performed a history & physical examination of the patient and discussed their management with my nurse practitioner, Hazel Jackson. I reviewed the nurse practitioner's note and agree with the documented findings and plan of care. Time with Patient: Less than 30
[2017-06-04 15:33] VITALS: BP 102/58; RESP 16; TEMP 99
[2017-06-04] MEDS: ALBUTEROL NEBULIZED 2.5 MG/3 ML INHALATION PRN (15:48)
--- NOTE | 2017-06-04 16:19 | P.DS ---
Providers Date of admission: 05/29/17 03:26 Expected date of discharge: 06/04/17 Attending physician: Kailash Goldsmith MD Consults: 05/29/17 03:26 Consult Physician Stat Consulting Provider: Parag Ortiz Consult Reason/Comments: Metastatic disease Do you want consulting provider notified?: Yes Consult Physician Stat Consulting Provider: Darrius Barrera Consult Reason/Comments: gi bleed Do you want consulting provider notified?: Yes 05/30/17 14:33 Consult Physician Routine Consulting Provider: Lynette Arana Consult Reason/Comments: left lung cavitary lesion Do you want consulting provider notified?: Yes Primary care physician: [facility] Course: This is a 57-year-old female with history of small cell lung cancer, patient was diagnosed back in January of 2016. She presented to ER with chief complaint of rectal bleeding and bright red blood per rectum 2 just shortly prior to arrival as well as abdominal pain localized in the lower abdomen . The patient last chemotherapy was last . As an outpatient she underwent bronchoscopy and paratracheal lymph node aspiration. 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 She has had radiation treatment to the brain. Despite chemo and radiation unfortunately she continued to have abnormal CT of the chest and abnormal chest x-ray showing a masslike consolidation in the superior segment of the left lower lobe with cavitation, and there was also air fluid level at the left lung apex. She was admitted for the rectal bleeding. She was seen in consultation by pulmonary medicine, gastroenterology and hematology oncology. Heart rectal bleeding was suspected to be irritation from constipation and this resolved spontaneously without any intervention. The patient's CAT scan showed ongoing cavitary lesion and possible hydropneumothorax for which pulmonary medicine sign evaluated the patient. No surgical or bronchoscopic evaluation was recommended as overall it was felt that the patient had ongoing progressive small cell lung cancer not responsive to chemo and radiation therapy . She was initially treated with antimicrobial therapy for possible infectious etiology. After meeting with the patient and her family hematology oncology recommended to focus the care and goals on comfort measures only and hospice. Hospice was consulted and at this point the patient's being discharged to home with her family for ongoing end-of-life care . Both the patient and the family are comfortable with this discharge plan. They were provided with prescriptions for end-of-life comfort measure medications. Family was counseled that she can resume any home medications if able and she desires. Otherwise as she has been having increasingly intolerance to pills there will be Roxanol, Ativan and atropine available to assist with any discomfort. They understand that given how the disease has progressed her overall prognosis is poor and is eminent. Hospice and social media editor assisted with a safe discharge plan for home with all medical equipment needed for the patient's end-of-life comfort care. If you have any questions regarding this complicated patient's hospitalization please feel free to page brian physician hospitalist. Plan - Discharge Summary New Discharge Prescriptions: New Albuterol Nebulized [Ventolin Nebulized] 2.5 mg INHALATION RT-Q4H PRN neb PRN Reason: Dyspnea Atropine Ophth Soln 1% 5Ml [Isopto Atropine 1% 5Ml] 2 drop SUBLINGUAL Q4H PRN #1 bottle PRN Reason: Secretions LORazepam [Ativan] 1 mg PO Q4H PRN #30 tablet PRN Reason: Pain MORPHINE ORAL SOLN 20mg/mL [Roxanol Oral Soln Conc 20MG/ML] 20 mg PO Q2HR PRN #30 ml PRN Reason: Pain Continue Albuterol Nebulized [Ventolin Nebulized] 2.5 mg INHALATION RT-Q4H PRN PRN Reason: Dyspnea levETIRAcetam [Keppra] 1,000 mg PO BID Albuterol Inhaler [Ventolin Hfa Inhaler] 2 puff INHALATION RT-Q4H PRN PRN Reason: Dyspnea Discontinued Famotidine [Pepcid] 20 mg PO BID@0800,1600 Atorvastatin [Lipitor] 20 mg PO HS@1999 Dronabinol [Marinol] 5 mg PO BID@0800,1600 Rivaroxaban [Xarelto] 20 mg PO HS oxyCODONE-APAP 7.5-325MG [Percocet 7.5-325 mg] 1 tab PO Q4H PRN PRN Reason: Breakthrough Pain oxyCODONE-APAP 7.5-325MG [Percocet 7.5-325 mg] 1 tab PO QID PRN PRN Reason: Pain oxyCODONE HCL 20 mg PO BID@0800,2000 ALPRAZolam [Xanax] 0.25 mg PO BID PRN PRN Reason: Anxiety Nystatin 100,000 Unit/ml Susp [Mycostatin Oral Susp] 500,000 unit PO QID PRN PRN Reason: Mouth Irritation Ondansetron [Zofran] 4 mg PO Q4H PRN PRN Reason: Nausea And Vomiting Metoclopramide [Reglan] 10 mg PO TID@0800,1600,2000 ALPRAZolam [Xanax] 0.25 mg PO HS@2000 Sucralfate [Carafate] 1 gm PO QID Dexamethasone [Hexadrol] See Taper PO DAILY Bisacodyl [Dulcolax] 5 mg PO QAM Docusate [Colace] 100 mg PO HS Magic Mouth Wash 5 ml PO QID PRN PRN Reason: Mouth Irritation Discharge Medication List Albuterol Nebulized [Ventolin Nebulized] 2.5 mg INHALATION RT-Q4H PRN 01/02/16 [ History] Albuterol Inhaler [Ventolin Hfa Inhaler] 2 puff INHALATION RT-Q4H PRN 05/28/17 [ History] levETIRAcetam [Keppra] 1,000 mg PO BID 05/28/17 [History] Albuterol Nebulized [Ventolin Nebulized] 2.5 mg INHALATION RT-Q4H PRN neb 06/04 [Rx] Atropine Ophth Soln 1% 5Ml [Isopto Atropine 1% 5Ml] 2 drop SUBLINGUAL Q4H PRN # 1 bottle 06/04/17 [Rx] LORazepam [Ativan] 1 mg PO Q4H PRN #30 tablet 06/04/17 [Rx] MORPHINE ORAL SOLN 20mg/mL [Roxanol Oral Soln Conc 20MG/ML] 20 mg PO Q2HR PRN # 30 ml 06/04/17 [Rx] Follow up Appointment(s)/Referral(s): Mynor Kingston DO [Primary Care Provider] - 1-2 days [facility], [NON-STAFF] - 1 Week Patient Instructions/Handouts: Lorazepam (By mouth), Morphine, Rapid Release ( By mouth), Atropine (Into the eye)
[2017-06-04 16:53] VITALS: PULSE 99
== END 2017-06-04 17:30 | disposition still patient (30) | DRG 871 ==
LOC: EC 23:05 → 5MS5E 05-29 03:26 → 5ONC 05-29 16:56
PROVIDERS: ADMIT Family Medicine; ATTEND Family Medicine
DX: A41.9 Sepsis, unspecified organism (principal); J18.9 Pneumonia, unspecified organism; J94.8 Other specified pleural conditions; D61.810 Antineoplastic chemotherapy induced pancytopenia; J90 Pleural effusion, not elsewhere classified; J96.10 Chronic respiratory failure, unspecified whether with hypoxia or hypercapnia; B37.0 Candidal stomatitis; C78.7 Secondary malignant neoplasm of liver and intrahepatic bile duct; J44.0 Chronic obstructive pulmonary disease with (acute) lower respiratory infection; C79.31 Secondary malignant neoplasm of brain; C34.90 Malignant neoplasm of unspecified part of unspecified bronchus or lung; I82.722 Chronic embolism and thrombosis of deep veins of left upper extremity; K59.09 Other constipation; Z66 Do not resuscitate; R19.00 Intra-abdominal and pelvic swelling, mass and lump, unspecified site; F41.9 Anxiety disorder, unspecified; H91.90 Unspecified hearing loss, unspecified ear; E78.5 Hyperlipidemia, unspecified; E66.9 Obesity, unspecified; E11.9 Type 2 diabetes mellitus without complications; Z51.5 Encounter for palliative care; T45.1X5A Adverse effect of antineoplastic and immunosuppressive drugs, initial encounter; R59.0 Localized enlarged lymph nodes; Z88.6 Allergy status to analgesic agent; Z88.1 Allergy status to other antibiotic agents; Z88.2 Allergy status to sulfonamides; Z79.899 Other long term (current) drug therapy; Z79.01 Long term (current) use of anticoagulants; Z79.891 Long term (current) use of opiate analgesic; Z80.1 Family history of malignant neoplasm of trachea, bronchus and lung; Z83.2 Family history of diseases of the blood and blood-forming organs and certain disorders involving the immune mechanism; Z87.891 Personal history of nicotine dependence; Z99.81 Dependence on supplemental oxygen; Z92.3 Personal history of irradiation; Z90.710 Acquired absence of both cervix and uterus; Z98.41 Cataract extraction status, right eye; Z98.42 Cataract extraction status, left eye
CPT/HCPCS: 36415; 51701; 51798; 71020; 74177; 80048; 80053; 81001; 82550; 82553; 83605; 83735; 84100; 84484; 85025; 85027; 85610; 85730; 86850; 86900; 86901; 87040; 87086; 93005; 94640; 94760; 96361; 96365; 96366; 96375; 96376; 99285